=== PATIENT | male | born 1945 | race Caucasian/White ===

== ENCOUNTER 2017-01-25 20:21 | Emergency (ER) | payer MEDICARE, BC ==
[2017-01-25 20:35] VITALS: BP 155/83
--- NOTE | 2017-01-25 21:08 | EDM.PDOC ---
ED HPI GENERAL MEDICAL PROBLEM - General Chief Complaint: Cardiovascular Problem Stated Complaint: BLOOD PRESSURE PROBLEM Time Seen by Provider: 01/25/17 20:57 Source of Information: Reports: Patient History Limitations: Reports: No Limitations - History of Present Illness INITIAL COMMENTS - FREE TEXT/NARRATIVE: 71-year-old male attends the ED with a sense of unwellness. He short of breath on minimal exertion. Denies cough or sputum production. No true orthopnea. He wears a CPAP machine at bedtime and therefore he would appreciate orthopnea. He started near ` yesterday amount of one tablet. This is for overactive bladder prescribed by Dr. Mascorro. He was concerned that it may be causing a lot of side effects as he feels extremely wiped out her to take a 3 hour nap this afternoon still feels super tired. He has some chronic lower dependent edema. He has no known history of congestive heart failure. Eyes any other changes to his medications. His blood pressure was elevated at home and to the 150s and 160s diastolic systolically. He was concerned therefore this is an adverse effect of them are Adolfo as he read all the side effect profile. He did not take his tablet today. On arrival his BP was 155/90. It slowly came down to 134/ 74. Onset: Today Onset Date: 01/25/17 Duration: Hour(s):, Constant Location: Reports: Generalized Quality: Reports: Other Severity: Moderate (No pain just generally weak and tired.) Improves with: Reports: None Worsens with: Reports: Movement Context: Denies: Activity, Exercise, Lifting, Sick Contact, Trauma, Other Associated Symptoms: Reports: Malaise, Shortness of Breath, Weakness. Denies: No Other Symptoms, Confusion, Chest Pain, Cough, cough w sputum, Diaphoresis, Fever/Chills, Headaches, Loss of Appetite, Nausea/Vomiting, Rash, Seizure, Syncope Treatments HOP STRAINER: Reports: Other (see below) (None.) Bilateral Shoulder Pain Score (Numeric/FACES): 2 - Related Data Allergies Allergy/AdvReac Type Severity Reaction Status Date / Time Iodinated Contrast- Oral and Allergy Other Verified 10/18/15 11:53 IV Dye [Iodinated Contrast Media - IV Dye] Penicillins Allergy Rash Verified 10/18/15 11:53 aspirin AdvReac Stomach Verified 10/18/15 11:53 Ache codeine AdvReac Insomnia Verified 10/18/15 11:53 erythromycin lactobionate AdvReac Vomiting Verified 10/18/15 11:53 [From Erythrocin] oxycodone AdvReac Insomnia Verified 10/18/15 11:53 CT Dye Allergy Other Uncoded 07/21/15 23:20 Home Meds: Home Meds Allopurinol [Zyloprim] 100 mg PO BEDTIME 12/14/14 [History] Doxazosin [Cardura] 4 mg PO DAILY 12/14/14 [History] amLODIPine Besylate [Amlodipine Besylate] 10 mg PO DAILY 12/14/14 [History] Budesonide/Formoterol [Symbicort 80-4.5 MCG] 2 puff INH DAILY 08/14/15 [History] Lutein/Minerals/Vit A,C & E [Ocuvite] 1 each PO DAILY 08/14/15 [History] Past Medical History Cardiovascular History: Reports: High Cholesterol, Hypertension Respiratory History: Reports: Asthma, COPD, Sleep Apnea (Does wear CPAP at bedtime.) Gastrointestinal History: Reports: GERD Genitourinary History: Reports: BPH, Chronic Renal Insuffiency (EGFR is 44. Creatinine 1.6.), Prostate Disorder, Other (See Below) (Overactive bladder syndrome.) Musculoskeletal History: Reports: Arthritis, Gout, Osteoarthritis Endocrine/Metabolic History: Reports: Obesity/BMI 30+ - Past Surgical History Musculoskeletal Surgical History: Reports: Knee Replacement (Bilaterally.), Other (See Below) (Both shoulders have required surgery for rotator cuff tears.) Social & Family History - Tobacco Use Smoking Status *Q: Never Smoker Second Hand Smoke Exposure: No - Caffeine Use Caffeine Use: Reports: Coffee, Soda - Alcohol Use Days Per Week of Alcohol Use: 0 - Recreational Drug Use Recreational Drug Use: No Drug Use in Last 12 Months: No - Living Situation & Occupation Living situation: Reports: Occupation: Retired ED ROS GENERAL - Review of Systems Review Of Systems: See Below Constitutional: Reports: Malaise, Weakness, Fatigue. Denies: Fever, Chills, Decreased Appetite, Weight Loss HEENT: Reports: No Symptoms, Glasses Respiratory: Reports: Shortness of Breath (On exertion). Denies: Wheezing, Pleuritic Chest Pain, Cough, Sputum, Hemoptysis Cardiovascular: Reports: Blood Pressure Problem, Dyspnea on Exertion (SOME FLUID ACCUMULATION HIS LOWER EXTREMITIES.), Edema. Denies: Chest Pain, Claudication, Lightheadedness, Orthopnea (Chronic hypertension usually well controlled on current medications), Palpitations ( CHRONICALLY) Endocrine: Reports: Fatigue. Denies: High Glucose GI/Abdominal: Denies: Abdominal Pain : Reports: Frequency, Other (No definite big prostate with an overactive bladder. States the Metrix seems to have taken away a large portion of the constant urge to void.) Musculoskeletal: Reports: Shoulder Pain, Joint Pain (Both knees particular the right knee. Both knees been replaced both shoulders and rotator cuff surgical repair.) Skin: Reports: No Symptoms Neurological: Reports: No Symptoms Psychiatric: Reports: No Symptoms Hematologic/Lymphatic: Reports: No Symptoms ED EXAM, GENERAL - Physical Exam Exam: See Below Exam Limited By: No Limitations General Appearance: Alert, WD/WN, No Apparent Distress, Other (Initial vital settled he was tachypnea at rest at 30/m oxygen saturation 92-94% on room air.) Eye Exam: Bilateral Eye: Normal Inspection Throat/Mouth: Normal Inspection, Normal Lips, Normal Oropharynx Head: Atraumatic, Normocephalic Neck: Normal Inspection, Non-Tender, Full Range of Motion, Limited Range of Motion (Crepitus on top on lateral movement.). No: Lymphadenopathy (L), Lymphadenopathy (R) Respiratory/Chest: No Accessory Muscle Use, Chest Non-Tender, Respiratory Distress (Cachectic and rest 30/m.), Rales (Crackles both lower lobes it seemed to improve with deep breathing suggesting atelectasis.) Cardiovascular: Regular Rate, Rhythm (80/m), No Gallop, No Murmur, No Rub, Other (Unable to appreciate any jugular venous distention due to very large neck.) Peripheral Pulses: 0: Posterior Tibial (L) (Very weak pulses inhibited a little bit by the edema in his feet.), Posterior Tibial (R), Dorsalis Pedis (L), Dorsalis Pedis (R) GI/Abdominal: Normal Bowel Sounds, Soft, Non-Tender, No Organomegaly, Other ( Firm to palpation due to obesity. Abdominal girth limits ability to palpate solid organs.) Back Exam: Normal Inspection, Decreased Range of Motion. No: CVA Tenderness (L ) (Mildly decreased range of motion.), CVA Tenderness (R), Paraspinal Tenderness Extremities: Other (Is 2+ pitting edema lower extremities to about mid tib-fib. Evidence of bilateral total knee replacements.) Neurological: Alert, Oriented, CN II-XII Intact, Normal Cognition Psychiatric: Normal Affect, Normal Mood Skin Exam: Warm, Dry, Intact, Normal Color, No Rash EKG INTERPRETATION EKG Date: 01/25/17 Time: 21:25 Rhythm: NSR Rate (Beats/Min): 82 [place]: Normal P-Wave: Present (First-degree AV block.) QRS: Other (He has evidence of left ventricular hypertrophy pattern. There are near Q waves in lead 3 and aVF. Consider old inferior wall myocardial infarction.) ST-T: Normal QT: Prolonged (Mildly prolonged) Course - Vital Signs Last Recorded V/S: Last Vital Signs Temp 36.9 C 01/25/17 20:33 Pulse 95 01/25/17 20:33 Resp 30 H 01/25/17 20:33 BP 155/83 H 01/25/17 20:33 Pulse Ox 94 L 01/25/17 20:33 - Orders/Labs/Meds Orders: Active Orders 24 hr Category Date Time Status EKG Documentation Completion [RC] STAT Care 01/25/17 21:10 Active Chest 1V Frontal [CR] Stat Exams 01/25/17 21:10 Taken Labs: Laboratory Tests 01/25/17 01/25/17 01/25/17 Range/Units 21:20 21:20 21:20 WBC 7.95 (4.23-9.07) K/mm3 RBC 4.43 L (4.63-6.08) M/mm3 Hgb 13.4 L (13.7-17.5) gm/L Hct 40.5 (40.1-51.0) % MCV 91.4 (79.0-92.2) fl MCH 30.2 (25.7-32.2) pg MCHC 33.1 (32.2-35.5) g/dl RDW Std Deviation 42.6 (35.1-43.9) fL Plt Count 207 (163-337) K/mm3 MPV 8.9 L (9.4-12.3) fl Neutrophils % (Manual) 62 H (40-60) % Band Neutrophils % 0 (0-10) % Lymphocytes % (Manual) 35 (20-40) % Atypical Lymphs % 0 % Monocytes % (Manual) 3 (2-10) % Eosinophils % (Manual) 0 L (0.8-7.0) % Basophils % (Manual) 0 L (0.2-1.2) Platelet Estimate Adequate RBC Morph Comment Normal D-Dimer, Quantitative (0.19-0.59) mg/L Sodium 142 (136-145) mEq/L Potassium 3.8 (3.5-5.1) mEq/L Chloride 108 H (98-107) mEq/L Carbon Dioxide 25 (21-32) mEq/L Anion Gap 12.8 (5-15) BUN 33 H (7-18) mg/dL Creatinine 1.6 H (0.7-1.3) mg/dL Est Cr Clr Drug Dosing 43.09 mL/min Estimated GFR (MDRD) 43 (>60) mL/min BUN/Creatinine Ratio 20.6 H (14-18) Glucose 127 H (83-115) mg/dL Calcium 8.6 (8.5-10.1) mg/dL Total Bilirubin 0.5 (0.2-1.0) mg/dL AST 18 (15-37) U/L ALT 35 (16-63) U/L Alkaline Phosphatase 72 (46-116) U/L CK-MB (CK-2) 1.1 (0-3.6) ng/ml Troponin I < 0.017 (0.00-0.056) ng/mL C-Reactive Protein < 0.2 (<1.0) mg/dL B-Natriuretic Peptide < 15 (0-100) pg/mL Total Protein 6.6 (6.4-8.2) g/dl Albumin 3.3 L (3.4-5.0) g/dl Globulin 3.3 gm/dL Albumin/Globulin Ratio 1.0 (1-2) Urine Color (Yellow) Urine Appearance (Clear) Urine pH (5.0-8.0) Ur Specific [place] (1.005-1.030) Urine Protein (Negative) Urine Glucose (UA) (Negative) Urine Ketones (Negative) Urine Occult Blood (Negative) Urine Nitrite (Negative) Urine Bilirubin (Negative) Urine Urobilinogen (0.2-1.0) Ur Leukocyte Esterase (Negative) Urine RBC (0-5) /hpf Urine WBC (0-5) /hpf Ur Epithelial Cells (0-5) /hpf Urine Bacteria (FEW) /hpf Urine Mucus (FEW) /hpf 01/25/17 01/25/17 Range/Units 21:41 22:35 WBC (4.23-9.07) K/mm3 RBC (4.63-6.08) M/mm3 Hgb (13.7-17.5) gm/L Hct (40.1-51.0) % MCV (79.0-92.2) fl MCH (25.7-32.2) pg MCHC (32.2-35.5) g/dl RDW Std Deviation (35.1-43.9) fL Plt Count (163-337) K/mm3 MPV (9.4-12.3) fl Neutrophils % (Manual) (40-60) % Band Neutrophils % (0-10) % Lymphocytes % (Manual) (20-40) % Atypical Lymphs % % Monocytes % (Manual) (2-10) % Eosinophils % (Manual) (0.8-7.0) % Basophils % (Manual) (0.2-1.2) Platelet Estimate RBC Morph Comment D-Dimer, Quantitative 1.14 H (0.19-0.59) mg/L Sodium (136-145) mEq/L Potassium (3.5-5.1) mEq/L Chloride (98-107) mEq/L Carbon Dioxide (21-32) mEq/L Anion Gap (5-15) BUN (7-18) mg/dL Creatinine (0.7-1.3) mg/dL Est Cr Clr Drug Dosing mL/min Estimated GFR (MDRD) (>60) mL/min BUN/Creatinine Ratio (14-18) Glucose (83-115) mg/dL Calcium (8.5-10.1) mg/dL Total Bilirubin (0.2-1.0) mg/dL AST (15-37) U/L ALT (16-63) U/L Alkaline Phosphatase (46-116) U/L CK-MB (CK-2) (0-3.6) ng/ml Troponin I (0.00-0.056) ng/mL C-Reactive Protein (<1.0) mg/dL B-Natriuretic Peptide (0-100) pg/mL Total Protein (6.4-8.2) g/dl Albumin (3.4-5.0) g/dl Globulin gm/dL Albumin/Globulin Ratio (1-2) Urine Color Yellow (Yellow) Urine Appearance Clear (Clear) Urine pH 6.0 (5.0-8.0) Ur Specific [place] > or = 1.030 (1.005-1.030) Urine Protein 3+ H (Negative) Urine Glucose (UA) Negative (Negative) Urine Ketones Negative (Negative) Urine Occult Blood Trace-lysed H (Negative) Urine Nitrite Negative (Negative) Urine Bilirubin Negative (Negative) Urine Urobilinogen 0.2 (0.2-1.0) Ur Leukocyte Esterase Negative (Negative) Urine RBC 0-5 (0-5) /hpf Urine WBC 0-5 (0-5) /hpf Ur Epithelial Cells 0-5 (0-5) /hpf Urine Bacteria Occasional (FEW) /hpf Urine Mucus Few (FEW) /hpf - Radiology Interpretation Free Text/Narrative:: 71-year-old male presents to the ED for evaluation of elevated blood pressure fatigue and shortness of breath he believes since starting Myrbetric tablet yesterday. He was on medic previous medications for overactive bladder syndrome that were working fairly well but due to his current symptoms and testing by Dr. Pedro urologist - 2 days ago he was placed on the Myrbetriq due to overactive bladder. He feels that some of his side effects such as overwhelming fatigue shortness of breath on minimal exertion and elevated blood pressure may be due to taking Myrbetriq. Of note he has only taken 1 tablet. Examination suggests low-grade congestive heart failure with dependent edema. To Take good rest with O2 sats of 92% on room air. Plan chest x-ray one view. ECG. Routine labs to include BNP and d-dimer. So cardiac markers. - Re-Assessments/Exams Free Text/Narrative Re-Assessment/Exam: 01/25/17 22:12 blood pressures come down to 134/74. Heart rate remains sinus at 80 per minute. O2 sats are 93% on room air. ECG revealed sinus rhythm with first -degree AV block. Left ventricular hypertrophy pattern with near Q waves in leads 3 and aVF suggestive of an old inferior wall myocardial infarction. Labs are pending. Chest x-ray reveals mild to moderate cardiomegaly with relatively clear lung syed. Perhaps mild hyperinflation. 01/25/17 22:15: Labs are all within normal limits is no sign of congestive failure no electrolyte imbalance cardiac markers are normal. Therefore think adverse effects or overwhelming fatigue is secondary to the new medication Myrbetriq. Lab just called over and indicates it did not have enough water clotted too soon to do a D-dimer test. Therefore I'm going to have them come back to redraw him. The meantime I will send him home as I think he has COPD and low oxygen levels most of the time. I will call him back if there are problems with the D-dimer test once it's completed. I left it up to him whether or not he wants to continue with the Myrbetriq. I would suggest using it every other day for a week or so then using it on a daily basis as he is likely to develop tolerance to the side effect profile. However if he continues to have overwhelming fatigue from the medication it will have to be discontinued and alternatives looked at. He does have a follow-up appointment with Dr. Pedro in 2 months time 01/25/17 23:38 d-dimer came back at 1.14. This is considered minimally elevated and likely due to poor clearance by his kidneys. Departure - Departure Time of Disposition: 22:25 Disposition: Home, Self-Care 01 Condition: Fair Clinical Impression: Adverse effects of medication Qualifiers: Encounter type: initial encounter Qualified Code(s): T88.7XXA - Unspecified adverse effect of drug or medicament, initial encounter Instructions: Drug Allergy, [id number] Referrals: Sole Lu, CRUISE GUIDE [Primary Care Provider] - Forms: ED Department Discharge Additional Instructions: Evaluation in the emergency room tonight in regards to increased overwhelming fatigue today and increased shortness of breath and mildly elevated blood pressure which was felt to be secondary to new medication Myrbetriq which was started the day before for overactive bladder symptoms. Little chest x-ray reveals mild heart enlargement with no signs of significant heart failure. ECG is unchanged from prior. Lab work revealed that there was no problems with her heart or extra fluid in the lungs to cause you to be more short of breath a normal and all of your electrolytes were normal. Blood pressure was mildly elevated when you came into the hospital but settle down into the 128 134/78 range. Therefore blood pressure is well controlled at present. I do believe that overwhelming fatigue is secondary to the side effect of Myrbetriq. Perhaps taking it on an every other day basis for a week would be an alternative to a lesser body adjust the medication and then start to take it on a daily basis may cause less fatigue. Typically over time we used of the side effects of the medication. A week to 10 days. However if you find that he cannot tolerate the medication then it should be just discontinued. I can find no evidence that it' s interacting with your other medications. Therefore no other medication changes are to be made at this time. - My Orders Last 24 Hours: My Active Orders 01/25/17 21:10 EKG Documentation Completion [RC] STAT Chest 1V Frontal [CR] Stat - Assessment/Plan Last 24 Hours: My Active Orders 01/25/17 21:10 EKG Documentation Completion [RC] STAT Chest 1V Frontal [CR] Stat
--- NOTE | 2017-01-26 17:53 | CR ---
Chest: Portable view of the chest was obtained. Comparison: Previous chest x-ray of 07/22/15. Heart size appears at the upper limits of normal. Mild tortuosity of the thoracic aorta is seen. Nodularity which is believed to be due to vascular confluence is seen within the right hilum. Lungs are clear with no acute infiltrates. Previous right shoulder surgery is noted. Impression: 1. Incidental findings as noted above. Nothing acute is appreciated on portable chest x-ray. Diagnostic code #2
== END 2017-01-25 22:40 | disposition home or self-care (01) ==
LOC: JD.ED 20:21
DX: R06.02 Shortness of breath (principal); T50.995A Adverse effect of other drugs, medicaments and biological substances, initial encounter; I12.9 Hypertensive chronic kidney disease with stage 1 through stage 4 chronic kidney disease, or unspecified chronic kidney disease; N18.9 Chronic kidney disease, unspecified; E78.00 Pure hypercholesterolemia, unspecified; J45.909 Unspecified asthma, uncomplicated; J44.9 Chronic obstructive pulmonary disease, unspecified; G47.30 Sleep apnea, unspecified; K21.9 Gastro-esophageal reflux disease without esophagitis; M19.90 Unspecified osteoarthritis, unspecified site; E66.9 Obesity, unspecified; Z96.653 Presence of artificial knee joint, bilateral; Z98.890 Other specified postprocedural states; Z79.899 Other long term (current) drug therapy; Z88.0 Allergy status to penicillin; Z88.5 Allergy status to narcotic agent; Z88.6 Allergy status to analgesic agent; Z91.041 Radiographic dye allergy status
CPT/HCPCS: 36415; 71010; 71010-26; 80053; 81001; 82553; 83880; 84484; 85025; 85379; 86140; 93005; 99284; 99284-25

== ENCOUNTER 2017-04-05 21:44 | Emergency (ER) | payer MEDICARE, BC ==
[2017-04-05 21:59] VITALS: BP 155/100
[2017-04-05] MEDS ORDERED: Acetaminophen 325 MG Tab PO ONE (23:05)
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
[2017-04-05] MEDS ORDERED: Diphtheria,Pertussis(Acell),Tetanus Vaccine 0.5 ML SDV IM ONE (23:50)
--- NOTE | 2017-04-07 12:15 | CR ---
Left hand: Four views of left hand were obtained. Comparison: No prior hand study. Slightly displaced oblique fracture is seen within the mid shaft diaphysis of the fourth metacarpal. Degenerative change is scattered within the DIP and PIP joints as well as MCP joints. Severe degenerative change is noted at the CMC joint of the thumb. No additional fracture or other bony abnormality is seen. Impression: 1. Fourth metacarpal fracture. 2. Degenerative change. Diagnostic code #3
--- NOTE | 2017-04-07 12:15 | CR ---
Left wrist: Four views of the left wrist were obtained. Comparison: No previous wrist exam. Severe degenerative change is noted at the CMC joint of the thumb. Cyst is noted within the lunate bone which is incidental. Fracture is again noted within the fourth metacarpal. No additional fracture or other abnormality is seen. Impression: 1. Degenerative change as described above. 2. Fourth metacarpal fracture. Diagnostic code #3
== END 2017-04-06 00:20 | disposition home or self-care (01) ==
LOC: JD.ED 21:44
DX: S62.325A Displaced fracture of shaft of fourth metacarpal bone, left hand, initial encounter for closed fracture (principal); E78.00 Pure hypercholesterolemia, unspecified; J45.909 Unspecified asthma, uncomplicated; I10 Essential (primary) hypertension; Z23 Encounter for immunization; K21.9 Gastro-esophageal reflux disease without esophagitis; E66.9 Obesity, unspecified; M19.90 Unspecified osteoarthritis, unspecified site; Z96.659 Presence of unspecified artificial knee joint; Z88.0 Allergy status to penicillin; Z91.041 Radiographic dye allergy status; Z88.6 Allergy status to analgesic agent; Z88.1 Allergy status to other antibiotic agents; Z88.5 Allergy status to narcotic agent; Z79.899 Other long term (current) drug therapy; W17.89XA Other fall from one level to another, initial encounter; Z68.41 Body mass index [BMI] 40.0-44.9, adult
CPT/HCPCS: 29125; 73110; 73130; 90471; 90715; 99283; A9270

== ENCOUNTER 2019-08-10 19:30 | Emergency (ER) | payer MEDICARE, BC ==
[2019-08-10] MEDS ORDERED: Acetaminophen 325 MG Tab PO ONE (19:58)
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
[2019-08-10 20:58] VITALS: BP 159/93; PULSE 97
--- NOTE | 2019-08-11 06:49 | CR ---
Chest: Frontal view of the chest was obtained. Comparison: Prior chest x-ray of 01/25/17. Heart size is within normal limits. Tortuous thoracic aorta is noted. Mild pleural thickening is noted along the right lateral chest wall. Lungs are clear with no acute parenchymal change. Previous bilateral shoulder surgery is noted. Impression: 1. Pleural thickening along the right lateral chest wall. This most likely is chronic and better seen on current study due to positioning. 2. Nothing acute is otherwise seen. Diagnostic code #2 This report was dictated in [place] Standard Time
--- NOTE | 2019-08-11 07:21 | CR ---
Pelvis: AP view of the pelvis was obtained. Comparison: No pelvis exam. Joint spaces within both hips are maintained. Sacroiliac joints are not optimally seen but are felt to be intact. No acute fracture or other abnormality is seen. Impression: 1. Nothing acute is seen on AP pelvis study. Diagnostic code #1 This report was dictated in [place] Standard Time
--- NOTE | 2019-08-11 07:21 | CR ---
Left knee: Four views of the left knee were obtained. Comparison: No prior left knee exam. Knee prosthesis is seen. Components are aligned. Well-corticated bony densities are seen off the medial knee compatible with old injury. No joint effusion is seen. No acute fracture, dislocation or other bony abnormality is identified. Impression: 1. Knee prosthesis. 2. Well-corticated bony densities off the medial knee believed to be due to old injury. 3. Nothing acute is seen. Diagnostic code #2 This report was dictated in [place] Standard Time
--- NOTE | 2019-08-11 07:21 | CR ---
Right knee: Four views of the right knee were obtained. Comparison: No prior right knee exam is available. Knee prosthesis is noted. Components are aligned. Underlying bony structures are intact. Minimal vascular calcification is seen. No acute fracture or other abnormality is appreciated. Impression: 1. Knee prosthesis. 2. Nothing acute is appreciated on right knee exam. Diagnostic code #2 This report was dictated in [place] Standard Time
== END 2019-08-10 21:07 | disposition home or self-care (01) ==
LOC: JD.ED 19:30
DX: S80.01XA Contusion of right knee, initial encounter (principal); S80.02XA Contusion of left knee, initial encounter; I12.9 Hypertensive chronic kidney disease with stage 1 through stage 4 chronic kidney disease, or unspecified chronic kidney disease; N18.9 Chronic kidney disease, unspecified; E78.00 Pure hypercholesterolemia, unspecified; J44.9 Chronic obstructive pulmonary disease, unspecified; M10.9 Gout, unspecified; E66.9 Obesity, unspecified; Z90.49 Acquired absence of other specified parts of digestive tract; Z91.041 Radiographic dye allergy status; Z88.8 Allergy status to other drugs, medicaments and biological substances; Z88.5 Allergy status to narcotic agent; Z88.0 Allergy status to penicillin; Z79.899 Other long term (current) drug therapy; V89.2XXA Person injured in unspecified motor-vehicle accident, traffic, initial encounter
CPT/HCPCS: 36415; 71045; 72170; 73564; 80053; 85025; 99284; A9270; 99282

== ENCOUNTER 2019-08-20 10:35 | Emergency (ER) | payer MEDICARE, BC ==
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
[2019-08-20] MEDS: Sodium Chloride 0.9% 10 ML Syringe FLUSH PRN ×2 (11:25→13:02)
--- NOTE | 2019-08-20 12:29 | US ---
Right lower extremity deep venous ultrasound: Duplex and color Doppler evaluation of the right common femoral, proximal greater saphenous, superficial femoral, popliteal, posterior tibial and peroneal veins were obtained. Left common femoral vein was also evaluated. Normal phasic flow, augmentation and compression are seen. Impression: 1. No evidence of deep venous thrombosis within the right lower extremity or within the left common femoral vein. Diagnostic code #1 Study was dictated in [place] Standard Time
[2019-08-20] MEDS ORDERED: Levofloxacin/Dextrose 5%-Water 500 MG in Premix Bag 1 BAG IV ONE (12:32)
[2019-08-20 14:57] VITALS: BP 155/84; PULSE 79
== END 2019-08-20 14:10 | disposition home or self-care (01) ==
LOC: JD.ED 10:35
DX: L03.115 Cellulitis of right lower limb (principal); E78.00 Pure hypercholesterolemia, unspecified; J44.9 Chronic obstructive pulmonary disease, unspecified; I12.9 Hypertensive chronic kidney disease with stage 1 through stage 4 chronic kidney disease, or unspecified chronic kidney disease; N18.9 Chronic kidney disease, unspecified; M10.9 Gout, unspecified; N40.0 Benign prostatic hyperplasia without lower urinary tract symptoms; E66.9 Obesity, unspecified; Z68.41 Body mass index [BMI] 40.0-44.9, adult; Z88.5 Allergy status to narcotic agent; Z88.0 Allergy status to penicillin; Z88.6 Allergy status to analgesic agent; Z88.1 Allergy status to other antibiotic agents; Z91.041 Radiographic dye allergy status; Z79.899 Other long term (current) drug therapy; Z79.51 Long term (current) use of inhaled steroids
CPT/HCPCS: 36415; 80053; 83605; 85025; 87040; 87186; 93971; 96365; 99284; J1956; 99283

== ENCOUNTER 2019-10-25 13:00 | Inpatient (IN) | payer MEDICARE, BC, OTHER ==
--- NOTE | 2019-10-25 13:50 | EDM.PDOC ---
ED HPI GENERAL MEDICAL PROBLEM - General Chief Complaint: Respiratory Problem Stated Complaint: COUGH/SOB Time Seen by Provider: 10/25/19 13:10 Source of Information: Reports: Patient, Family () History Limitations: Reports: Physical Impairment (Patient difficult to understand, likely related to his [place]) - History of Present Illness INITIAL COMMENTS - FREE TEXT/NARRATIVE: Mr. Prince is a very pleasant 74-year-old man with a past medical history significant for obesity, both asthma and, likely, COPD, as well as obstructive sleep apnea, on nightly CPAP, hypertension and chronic renal insufficiency, who now comes to the ED with his , who tells me that he developed a fever, a nonproductive cough, and watery diarrhea on 10/15/2019. He has had a decreased appetite for about 1 week. He chronically has shortness of breath and dyspnea on exertion, but now presents because it got much worse in the last day or two. While the patient has a history of asthma, he has not been wheezing recently. Here in the ED, the patient is found to be hemodynamically stable, but with a fever of 102.6 degrees, saturating around 69 to 70% on room air, up to 87-88 sent on a nonrebreather mask. The patient's PCP is Sole Lu NP. His Distribution Manager is Dr. Maria T Ferguson. His [employer] is Dr. Connor Garcia. His Urologist is Dr. Av Goins. He received an influenza vaccine this season. Treatments GENERAL ENGINEER: Reports: Other (see below) Other Treatments GENERAL ENGINEER: none - Related Data Allergies Allergy/AdvReac Type Severity Reaction Status Date / Time Iodinated Contrast Media Allergy Other Verified 08/20/19 10:45 [Iodinated Contrast Media - IV Dye] Penicillins Allergy Rash Verified 08/20/19 10:45 aspirin AdvReac Stomach Verified 08/20/19 10:45 Ache codeine AdvReac Insomnia Verified 08/20/19 10:45 erythromycin lactobionate AdvReac Vomiting Verified 08/20/19 10:45 [From Erythrocin] oxycodone AdvReac Insomnia Verified 08/20/19 10:45 CT Dye Allergy Other Uncoded 07/14/18 14:44 Home Meds: Home Meds Allopurinol [Zyloprim] 200 mg PO BEDTIME 12/14/14 [History] Doxazosin [Cardura] 8 mg PO DAILY 12/14/14 [History] amLODIPine Besylate [Amlodipine Besylate] 10 mg PO DAILY 12/14/14 [History] Budesonide/Formoterol [Symbicort 80-4.5 MCG] 2 puff INH ASDIRECTED 08/14/15 [ History] Rosuvastatin [Crestor] 10 mg PO DAILY 04/05/17 [History] Cholecalciferol (Vitamin D3) [Vitamin D3] 10,000 unit PO DAILY 07/14/18 [History ] Albuterol Sulfate [Proair Hfa] 2 puff IH Q4HR PRN 08/10/19 [History] Fluticasone Propionate 1 spray NS DAILY 08/10/19 [History] Lisinopril [Zestril] 80 mg PO DAILY 08/10/19 [History] Past Medical History HEENT History: Reports: Hard of Hearing, Impaired Vision Cardiovascular History: Reports: High Cholesterol, Hypertension Respiratory History: Reports: Asthma, COPD, Sleep Apnea (nightly CPAP) Gastrointestinal History: Reports: Colon Polyp, GERD Genitourinary History: Reports: BPH, Chronic Renal Insuffiency Musculoskeletal History: Reports: Gout (suspected, not proven), Osteoarthritis Endocrine/Metabolic History: Reports: Obesity/BMI 30+ - Past Surgical History HEENT Surgical History: Reports: Oral Surgery (1 wisdom tooth extracted), Tonsillectomy GI Surgical History: Reports: Appendectomy, Colonoscopy (x 3 or 4) Musculoskeletal Surgical History: Reports: Knee Replacement (bilateral) Social & Family History - Family History Family Medical History: Noncontributory - Tobacco Use Smoking Status *Q: Never Smoker - Caffeine Use Caffeine Use: Reports: Coffee - Alcohol Use Alcohol Use History: Yes Alcohol Use Frequency: Socially - Recreational Drug Use Recreational Drug Use: No - Living Situation & Occupation Living situation: Reports: , with Spouse Occupation: Retired ED ROS GENERAL - Review of Systems Review Of Systems: Comprehensive ROS is negative, except as noted in HPI. ED EXAM, GENERAL - Physical Exam Exam: See Below Exam Limited By: No Limitations General Appearance: Alert, WD/WN, No Apparent Distress Eye Exam: Bilateral Eye: EOMI, Normal Inspection Ears: Normal External Exam, Hearing Loss Nose: Normal Inspection Throat/Mouth: Normal Inspection, Normal Lips, Normal Voice, No Airway Compromise Head: Atraumatic, Normocephalic Neck: Normal Inspection, Full Range of Motion Respiratory/Chest: No Respiratory Distress, Lungs Clear, Normal Breath Sounds, No Accessory Muscle Use. No: Decreased Breath Sounds, Crackles, Rhonchi, Wheezing, Stridor, Prolonged Expiration Cardiovascular: Normal Peripheral Pulses, Regular Rate, Rhythm, No Gallop, No JVD, No Murmur, No Rub Peripheral Pulses: 4+: Radial (L), Radial (R) GI/Abdominal: Normal Bowel Sounds, Soft, Non-Tender, No Organomegaly, No Distention, No Abnormal Bruit, No Mass (Male) Exam: Deferred Rectal (Males) Exam: Deferred Back Exam: Normal Inspection, Full Range of Motion, NT Extremities: Normal Range of Motion, Normal Capillary Refill, Other (Bilateral leg chronic venous stasis changes, including hyperpigmentation) Neurological: Alert, Oriented, Normal Cognition, No Motor/Sensory Deficits Psychiatric: Normal Affect Skin Exam: Warm, Dry, Intact, Normal Color, No Rash ED RESPIRATORY PROCEDURES - Endotracheal Intubation Time of Intubation: 16:44 ET Intubation Indication: Respiratory Failure Preparation: Suction, Balloon Tested, BVM Set Up, Difficult Airway Equip Airway Assessment: Large Tongue Pre-Oxygenation: Assisted with BVM, 100% FiO2 Anesthesia Meds: Etomidate, Midazolam, Succinylcholine Placement: Orotracheal, Cuffed, Uncomplicated Placement Cords Visualized: Yes, Grade 4 ETT Size In mm: 8.0 Number of Attempts: 1 Confirmed By: CO2 Indicator, Bilateral Breath Sounds Tube Secured By: By RT EKG INTERPRETATION EKG Date: 10/25/19 Time: 14:16 Rhythm: NSR (frequent PACs) Rate (Beats/Min): 99 [place]: Normal P-Wave: Present QRS: Other (Late transition) ST-T: Normal QT: Prolonged (QTc 487 ms) Comparison: Change From Previous EKG (PACs new since 01/26/2020) Course - Vital Signs Last Recorded V/S: Last Vital Signs Temp 102.7 C H 10/25/19 18:58 Pulse 80 10/25/19 18:58 Resp 34 H 10/25/19 15:07 BP 115/70 10/25/19 18:58 Pulse Ox 89 L 10/25/19 15:07 - Orders/Labs/Meds Orders: Active Orders 24 hr Category Date Time Status EKG Documentation Completion [RC] STAT Care 10/25/19 13:41 Active RT Airway Intubation [RC] ASDIRECTED Care 10/25/19 16:50 Active RT Ventilator, Adult [RC] ASDIRECTED Care 10/25/19 16:50 Active CORONAVIRUS COVID-19 PCR PHL [MREF] Stat Lab 10/25/19 14:05 Received CULTURE BLOOD [BC] Stat Lab 10/25/19 13:44 Ordered CULTURE BLOOD [BC] Stat Lab 10/25/19 14:25 Received Lactated Ringers [Ringers, Lactated] 1,000 ml Med 10/25/19 19:15 Active IV ASDIRECTED Midazolam [Versed 5 MG/ML] 50 mg Med 10/25/19 16:15 Active Sodium Chloride 0.9% [Normal Saline] 40 ml IV ASDIRECTED Vecuronium 10 mg Med 10/25/19 16:15 Active Sodium Chloride 0.9% [Normal Saline] 100 ml IV ASDIRECTED fentaNYL [Sublimaze] 2,500 mcg Med 10/25/19 16:15 Active Sodium Chloride 0.9% [Normal Saline] 200 ml IV ASDIRECTED Blood Culture x2 Reflex Set [OM.PC] Stat Oth 10/25/19 13:43 Ordered Isolation [COMM] Routine Oth 10/25/19 13:44 Ordered Medication Orders Fentanyl 2,500 mcg/ Sodium (Chloride) 250 mls @ 13 mls/hr IV ASDIRECTED ONE Stop: 10/26/19 11:28 Last Admin: 10/25/19 16:28 Dose: 13 mls/hr Midazolam HCl 50 mg/ Sodium (Chloride) 50 mls @ 3 mls/hr IV ASDIRECTED ONE Stop: 10/26/19 08:54 Last Admin: 10/25/19 16:29 Dose: 3 mls/hr Vecuronium [place] 10 mg/ (Sodium Chloride) 100 mls @ 1 mls/hr IV ASDIRECTED ONE Stop: 10/29/19 20:14 Last Admin: 10/25/19 16:27 Dose: 1 mls/hr Lactated Ringer's (Ringers, Lactated) 1,000 mls @ 100 mls/hr IV ASDIRECTED [facility] Labs: Laboratory Tests 10/25/19 10/25/19 10/25/19 Range/Units 13:25 13:25 13:25 WBC 7.08 (4.23-9.07) K/mm3 RBC 5.14 (4.63-6.08) M/mm3 Hgb 14.6 (13.7-17.5) gm/dl Hct 45.8 (40.1-51.0) % MCV 89.1 (79.0-92.2) fl MCH 28.4 (25.7-32.2) pg MCHC 31.9 L (32.2-35.5) g/dl RDW Std Deviation 43.9 (35.1-43.9) fL Plt Count 234 (163-337) K/mm3 MPV 9.5 (9.4-12.3) fl Neutrophils % (Manual) 85 H (40-60) % Band Neutrophils % 0 (0-10) % Lymphocytes % (Manual) 4 L (20-40) % Atypical Lymphs % 0 % Monocytes % (Manual) 11 H (2-10) % Eosinophils % (Manual) 0 L (0.8-7.0) % Basophils % (Manual) 0 L (0.2-1.2) Platelet Estimate Adequate RBC Morph Comment Normal PT 12.5 H (9.7-12.0) SECONDS INR 1.16 APTT 31 (22-31) SECONDS D-Dimer, Quantitative 0.98 H (0.19-0.50) mg/L Puncture Site ABG pH (7.35-7.45) ABG pCO2 (35.0-45.0) mmHg ABG pO2 (80.0-100.0) mmHg ABG HCO3 (22.0-26.0) meq/L ABG O2 Saturation (96.0-97.0) % ABG Base Excess (-2-2.0) Elvis Test O2 Delivery Device Oxygen Flow Rate FiO2 (21.00-100.00) % Sodium 145 (136-145) mEq/L Potassium 3.8 (3.5-5.1) mEq/L Chloride 106 (98-107) mEq/L Carbon Dioxide 24 (21-32) mEq/L Anion Gap 18.8 H (5-15) BUN 37 H (7-18) mg/dL Creatinine 2.6 H (0.7-1.3) mg/dL Est Cr Clr Drug Dosing 26.15 mL/min Estimated GFR (MDRD) 24 (>60) mL/min BUN/Creatinine Ratio 14.2 (14-18) Glucose 138 H (83-115) mg/dL Lactic Acid (0.4-2.0) mmol/L Calcium 8.8 (8.5-10.1) mg/dL Magnesium 2.0 (1.8-2.4) mg/dl Ferritin (26-388) ng/ml Total Bilirubin 0.7 (0.2-1.0) mg/dL AST 45 H (15-37) U/L ALT 35 (16-63) U/L Alkaline Phosphatase 48 (46-116) U/L Lactate Dehydrogenase 373 H (85-227) U/L Creatine Kinase 236 (39-308) U/L Troponin I 0.026 (0.00-0.056) ng/mL C-Reactive Protein 13.4 H* (<1.0) mg/dL NT-Pro-B Natriuret Pep (0-450) pg/mL Total Protein 7.4 (6.4-8.2) g/dl Albumin 2.6 L (3.4-5.0) g/dl Globulin 4.8 gm/dL Albumin/Globulin Ratio 0.5 L (1-2) 10/25/19 10/25/19 10/25/19 Range/Units 13:25 13:25 13:25 WBC (4.23-9.07) K/mm3 RBC (4.63-6.08) M/mm3 Hgb (13.7-17.5) gm/dl Hct (40.1-51.0) % MCV (79.0-92.2) fl MCH (25.7-32.2) pg MCHC (32.2-35.5) g/dl RDW Std Deviation (35.1-43.9) fL Plt Count (163-337) K/mm3 MPV (9.4-12.3) fl Neutrophils % (Manual) (40-60) % Band Neutrophils % (0-10) % Lymphocytes % (Manual) (20-40) % Atypical Lymphs % % Monocytes % (Manual) (2-10) % Eosinophils % (Manual) (0.8-7.0) % Basophils % (Manual) (0.2-1.2) Platelet Estimate RBC Morph Comment PT (9.7-12.0) SECONDS INR APTT (22-31) SECONDS D-Dimer, Quantitative (0.19-0.50) mg/L Puncture Site ABG pH (7.35-7.45) ABG pCO2 (35.0-45.0) mmHg ABG pO2 (80.0-100.0) mmHg ABG HCO3 (22.0-26.0) meq/L ABG O2 Saturation (96.0-97.0) % ABG Base Excess (-2-2.0) Elvis Test O2 Delivery Device Oxygen Flow Rate FiO2 (21.00-100.00) % Sodium (136-145) mEq/L Potassium (3.5-5.1) mEq/L Chloride (98-107) mEq/L Carbon Dioxide (21-32) mEq/L Anion Gap (5-15) BUN (7-18) mg/dL Creatinine (0.7-1.3) mg/dL Est Cr Clr Drug Dosing mL/min Estimated GFR (MDRD) (>60) mL/min BUN/Creatinine Ratio (14-18) Glucose (83-115) mg/dL Lactic Acid 1.7 (0.4-2.0) mmol/L Calcium (8.5-10.1) mg/dL Magnesium (1.8-2.4) mg/dl Ferritin 3536 H (26-388) ng/ml Total Bilirubin (0.2-1.0) mg/dL AST (15-37) U/L ALT (16-63) U/L Alkaline Phosphatase (46-116) U/L Lactate Dehydrogenase (85-227) U/L Creatine Kinase (39-308) U/L Troponin I (0.00-0.056) ng/mL C-Reactive Protein (<1.0) mg/dL NT-Pro-B Natriuret Pep 392 (0-450) pg/mL Total Protein (6.4-8.2) g/dl Albumin (3.4-5.0) g/dl Globulin gm/dL Albumin/Globulin Ratio (1-2) 10/24/20 Range/Units 14:00 WBC (4.23-9.07) K/mm3 RBC (4.63-6.08) M/mm3 Hgb (13.7-17.5) gm/dl Hct (40.1-51.0) % MCV (79.0-92.2) fl MCH (25.7-32.2) pg MCHC (32.2-35.5) g/dl RDW Std Deviation (35.1-43.9) fL Plt Count (163-337) K/mm3 MPV (9.4-12.3) fl Neutrophils % (Manual) (40-60) % Band Neutrophils % (0-10) % Lymphocytes % (Manual) (20-40) % Atypical Lymphs % % Monocytes % (Manual) (2-10) % Eosinophils % (Manual) (0.8-7.0) % Basophils % (Manual) (0.2-1.2) Platelet Estimate RBC Morph Comment PT (9.7-12.0) SECONDS INR APTT (22-31) SECONDS D-Dimer, Quantitative (0.19-0.50) mg/L Puncture Site Lt radial ABG pH 7.41 (7.35-7.45) ABG pCO2 32.0 L (35.0-45.0) mmHg ABG pO2 61.0 L (80.0-100.0) mmHg ABG HCO3 19.7 L (22.0-26.0) meq/L ABG O2 Saturation 89.0 L (96.0-97.0) % ABG Base Excess -3.6 L (-2-2.0) Elvis Test Positive O2 Delivery Device Nrb Oxygen Flow Rate 15.0 FiO2 100.00 (21.00-100.00) % Sodium (136-145) mEq/L Potassium (3.5-5.1) mEq/L Chloride (98-107) mEq/L Carbon Dioxide (21-32) mEq/L Anion Gap (5-15) BUN (7-18) mg/dL Creatinine (0.7-1.3) mg/dL Est Cr Clr Drug Dosing mL/min Estimated GFR (MDRD) (>60) mL/min BUN/Creatinine Ratio (14-18) Glucose (83-115) mg/dL Lactic Acid (0.4-2.0) mmol/L Calcium (8.5-10.1) mg/dL Magnesium (1.8-2.4) mg/dl Ferritin (26-388) ng/ml Total Bilirubin (0.2-1.0) mg/dL AST (15-37) U/L ALT (16-63) U/L Alkaline Phosphatase (46-116) U/L Lactate Dehydrogenase (85-227) U/L Creatine Kinase (39-308) U/L Troponin I (0.00-0.056) ng/mL C-Reactive Protein (<1.0) mg/dL NT-Pro-B Natriuret Pep (0-450) pg/mL Total Protein (6.4-8.2) g/dl Albumin (3.4-5.0) g/dl Globulin gm/dL Albumin/Globulin Ratio (1-2) Meds: Medications Generic Name Dose Route Start Last Admin Trade Name Freq PRN Reason Stop Dose Admin Fentanyl 2,500 mcg/ Sodium 250 mls @ 13 mls/hr 10/25/19 16:15 10/25/19 16:28 Chloride IV 10/26/19 11:28 13 mls/hr ASDIRECTED ONE Administration Midazolam HCl 50 mg/ Sodium 50 mls @ 3 mls/hr 10/25/19 16:15 10/25/19 16:29 Chloride IV 10/26/19 08:54 3 mls/hr ASDIRECTED ONE Administration Vecuronium [place] 10 mg/ 100 mls @ 1 mls/hr 10/25/19 16:15 10/25/19 16:27 Sodium Chloride IV 10/29/19 20:14 1 mls/hr ASDIRECTED ONE Administration Lactated Ringer's 1,000 mls @ 100 mls/hr 10/25/19 19:15 Ringers, Lactated IV ASDIRECTED LG Discontinued Medications Generic Name Dose Route Start Last Admin Trade Name Freq PRN Reason Stop Dose Admin Etomidate 40 mg 10/25/19 16:00 Amidate IVPUSH 10/25/19 16:01 .STK-MED ONE Midazolam HCl 25 mg 10/25/19 16:00 Versed 1 Mg/Ml .ROUTE 10/25/19 16:01 .STK-MED ONE Succinylcholine Chloride 200 mg 10/25/19 16:00 Quelicin .ROUTE 10/25/19 16:01 .STK-MED ONE - Re-Assessments/Exams Free Text/Narrative Re-Assessment/Exam: 10/25/19 13:48 With dyspnea, a nonproductive cough, fever, watery diarrhea, and hypoxemia upon presentation, with essentially clear lungs to auscultation on exam, there is a very good chance that the patient is suffering from COVID-19. I have therefore ordered a work-up that includes blood work, an ABG, 2 sets of blood cultures, a chest x-ray, an influenza swab, a COVID-19 swab, and an ECG. The patient stated , with his and a nurse present, that if necessary, he would want to be intubated. 10/25/19 14:18 Portable chest radiograph reviewed. There is likely mild cardiomegaly. There are bilateral hazy infiltrates consistent with viral pneumonia/developing ARDS. This appearance makes evaluation of pulmonary vascular congestion difficult. No obvious pleural effusions on this AP view. No pneumothorax. Right humeral head arthroscopic anchors incidentally noted. Formal read per the Radiologist pending. 10/25/19 14:37 The patient's CBC is remarkable for a WBC count normal at 7.08 with 0% bandemia. His ANC is 85, and his ALC is 84. The remainder of his CBC is unremarkable. His CMP is remarkable for an anion gap mildly elevated at 18.8, but with a bicarbonate normal at 24. His BUN/Cr are elevated at 37/2.6, and his blood glucose is elevated at 138. The remainder of his CMP is unremarkable. His magnesium level is normal at 2.0. His troponin is within normal limits at 0.026. His BNP is within normal limits at 392. His CPK is within normal limits at 236. His lactic acid is normal at 1.7. His CRP is elevated at 13.4. His LDH is elevated at 373. Ferritin is elevated at 3536. His D-dimer is elevated at 0.98. His PT is 12.5 with an INR of 1.16. His PTT is within normal limits. His ABG represents a chronic/fully compensated respiratory alkalosis. His influenza swab returned negative. The SARS-CoV-2 virus by rt PCR test is a send-out test. The patient's ANC/ALC is 21.25. Reviewing prior medical records, I see that the patient's BUN/Cr were 32/1.9 on 08/30/2019. Based on the above, the patient is almost certainly suffering from COVID-19. An ANC/ALC ratio of greater than 3.5 portends to a poor prognosis, and intubation is recommended. 10/25/19 15:10 Test results and my recommendation for intubation discussed with the patient ( his is not currently present). The patient is agreeable to be intubated. 10/25/19 16:57 The removed his dentures for us, and we removed his hearing aid and eyeglasses. Following sedation with midazolam and etomidate, and paralysis with succinylcholine, the patient was intubated with an 8.0 OETT to 3 cm at the gingiva. Positive CO2 colorimetric change. Good bilateral breath sounds post intubation. An orogastric tube was then placed per Stacy MILLAN. A post-procedure portable chest x-ray has been ordered. The patient will be sedated with hemodialysis line drip, fentanyl drip, and remain paralyzed with a vecuronium drip. 10/25/19 17:27 Post-intubation portable chest radiograph reviewed. The tip of the ET tube is about 2 cm above the griselda. The OG tube is in the stomach via the esophagus. There is mild cardiomegaly. There are bilateral hazy infiltrates consistent with viral pneumonia versus developing ARDS. Pulmonary vascular congestion cannot be ruled out. No pleural effusions seen on this AP view. No pneumothorax. Formal read per the Radiologist pending. 10/25/19 18:32 Post-procedure chest x-ray read by Dr. Jensen as: 1. Diffuse parenchymal densities within both sides of the chest. Differential as described previously. 2. Endotracheal tube lying at the upper level of the clavicles. 3. Tip of the nasogastric tube within stomach. Note that the appearance of the tip of the ETT is based on superior positioning of the x-ray source; the tip can clearly be seen about 2 cm above the griselda, and is therefore in proper position. 10/25/19 19:06 Dr. Fregoso has been kept abreast of this patient throughout the day, and accepted the patient for admission to the ICU. Departure - Departure Time of Disposition: 17:30 Disposition: Admitted As Inpatient 65 Condition: Serious Clinical Impression: ARDS (adult respiratory distress syndrome) - Discharge Information *PRESCRIPTION DRUG MONITORING PROGRAM REVIEWED*: Not Applicable *COPY OF PRESCRIPTION DRUG MONITORING REPORT IN PATIENT RACHNA: Not Applicable Referrals: Sole Lu NP [Primary Care Provider] - Maria T Ferguson MD [Ordering Only Provider] - Connor Garcia MD [Ordering Only Provider] - Av Goins MD [Ordering Only Provider] - Forms: ED Department Discharge Sepsis Event Note - Evaluation Sepsis Screening Result: No Definite Risk - Focused Exam Vital Signs: Vital Signs Temp Pulse Resp BP Pulse Ox 10/25/19 18:58 102.7 C H 80 115/70 10/25/19 15:07 39.0 C H 100 34 H 139/72 89 L 10/25/19 13:38 39.2 C H Date Exam was Performed: 10/25/19 Time Exam was Performed: 19:27 - My Orders Last 24 Hours: My Active Orders 10/25/19 13:41 EKG Documentation Completion [RC] STAT 10/25/19 13:43 Blood Culture x2 Reflex Set [OM.PC] Stat 10/25/19 13:44 CULTURE BLOOD [BC] Stat Isolation [COMM] Routine 10/25/19 14:05 CORONAVIRUS COVID-19 PCR PHL [MREF] Stat 10/25/19 14:25 CULTURE BLOOD [BC] Stat 10/25/19 16:15 Midazolam [Versed 5 MG/ML] 50 mg Sodium Chloride 0.9% [Normal Saline] 40 ml IV ASDIRECTED Vecuronium 10 mg Sodium Chloride 0.9% [Normal Saline] 100 ml IV ASDIRECTED fentaNYL [Sublimaze] 2,500 mcg Sodium Chloride 0.9% [Normal Saline] 200 ml IV ASDIRECTED 10/25/19 16:50 RT Airway Intubation [RC] ASDIRECTED RT Ventilator, Adult [RC] ASDIRECTED 10/25/19 19:15 Lactated Ringers [Ringers, Lactated] 1,000 ml IV ASDIRECTED - Assessment/Plan Last 24 Hours: My Active Orders 10/25/19 13:41 EKG Documentation Completion [RC] STAT 10/25/19 13:43 Blood Culture x2 Reflex Set [OM.PC] Stat 10/25/19 13:44 CULTURE BLOOD [BC] Stat Isolation [COMM] Routine 10/25/19 14:05 CORONAVIRUS COVID-19 PCR PHL [MREF] Stat 10/25/19 14:25 CULTURE BLOOD [BC] Stat 10/25/19 16:15 Midazolam [Versed 5 MG/ML] 50 mg Sodium Chloride 0.9% [Normal Saline] 40 ml IV ASDIRECTED Vecuronium 10 mg Sodium Chloride 0.9% [Normal Saline] 100 ml IV ASDIRECTED fentaNYL [Sublimaze] 2,500 mcg Sodium Chloride 0.9% [Normal Saline] 200 ml IV ASDIRECTED 10/25/19 16:50 RT Airway Intubation [RC] ASDIRECTED RT Ventilator, Adult [RC] ASDIRECTED 10/25/19 19:15 Lactated Ringers [Ringers, Lactated] 1,000 ml IV ASDIRECTED
--- NOTE | 2019-10-25 14:08 | CR ---
Chest: Portable view of the chest was obtained. Comparison: Prior chest x-ray of 08/10/19. Diffuse areas of increased density are noted throughout both lungs. Findings are an interval change from previous exam. Findings most likely represent diffuse pneumonia either bacterial or viral. Possible mild superimposed pulmonary vascular congestion. Heart is mildly enlarged. Prior right shoulder surgery is noted. Impression: 1. Diffusely abnormal chest x-ray. Differential as noted above. Diagnostic code #3 This report was dictated in MDT
[2019-10-25] MEDS ORDERED: Midazolam 1 MG/ML 5 ML SDV ONE (16:00)
[2019-10-25] MEDS ORDERED: Succinylcholine 200 MG/10 ML MDV ONE (16:00)
[2019-10-25] MEDS ORDERED: Etomidate 2 MG/ML 20 ML SDV IVPUSH ONE (16:00)
[2019-10-25] MEDS: Vecuronium 10 MG in Sodium Chloride 0.9% 100 ML IV ONE (16:27)
[2019-10-25] MEDS: fentaNYL 2,500 MCG in Sodium Chloride 0.9% 200 ML IV ONE (16:28)
[2019-10-25] MEDS: Midazolam 50 MG in Sodium Chloride 0.9% 40 ML IV ONE (16:29)
--- NOTE | 2019-10-25 17:40 | CR ---
Chest: Portable supine view of the chest was obtained. Comparison: Prior chest x-ray performed earlier on the same day (1:38 PM). Diffuse parenchymal densities are seen throughout both lungs. Heart size and mediastinum are within normal limits for supine technique. Endotracheal tube is seen with tip appearing to lie at the upper level of the clavicles. Nasogastric tube is seen with tip lying within the stomach. Bony structures are grossly intact. Prior left shoulder surgery is noted. Impression: 1. Diffuse parenchymal densities within both sides of the chest. Differential as described previously. 2. Endotracheal tube lying at the upper level of the clavicles. 3. Tip of nasogastric tube within stomach. Diagnostic code #3 This report was dictated in MDT
[2019-10-25] MEDS ORDERED: Acetaminophen 650 MG Supp RECTAL PRN (20:51)
[2019-10-25] MEDS: Lactated Ringers 1,000 ML IV SCH (21:27)
[2019-10-25] MEDS ORDERED: Levofloxacin/Dextrose 5%-Water 750 MG in Premix Bag 1 BAG IV SCH (22:00)
[2019-10-25] MEDS ORDERED: cefTRIAXone 2 GM in Sodium Chloride 0.9% 100 ML IV SCH (22:00)
--- NOTE | 2019-10-25 22:02 | PCM.HP.2 ---
H&P History of Present Illness - General Date of Service: 10/25/19 Admit Problem/Dx: Admission Diagnosis/Problem Admission Diagnosis/Problem Respiratory distress/probable covid 19 - History of Present Illness Initial Comments - Free Text/Narative: 74 year old male with hx of copd,renal insuff and new onset fever cough and resp distress with sats 60-70 %. suspected covid dx with elevated ferritin/ extensive infiltrates and headache and non spec symptoms . creatinines run in 2-2.5 range Onset of Symptoms: Reports: Gradual Duration of Symptoms: Reports: Day(s): (5) Location: Reports: Chest Improves with: Reports: None Worsens with: Reports: None Associated Symptoms: Reports: Cough, cough w sputum, Fever/Chills, Headaches, Loss of Appetite, Other (diarrhea) - Related Data Allergies/Adverse Reactions: Allergies Allergy/AdvReac Type Severity Reaction Status Date / Time Iodinated Contrast Media Allergy Other Verified 08/20/19 10:45 [Iodinated Contrast Media - IV Dye] Penicillins Allergy Rash Verified 08/20/19 10:45 aspirin AdvReac Stomach Verified 08/20/19 10:45 Ache codeine AdvReac Insomnia Verified 08/20/19 10:45 erythromycin lactobionate AdvReac Vomiting Verified 08/20/19 10:45 [From Erythrocin] oxycodone AdvReac Insomnia Verified 08/20/19 10:45 CT Dye Allergy Other Uncoded 07/14/18 14:44 Home Medications: Home Meds Allopurinol [Zyloprim] 200 mg PO BEDTIME 12/14/14 [History] Doxazosin [Cardura] 8 mg PO DAILY 12/14/14 [History] amLODIPine Besylate [Amlodipine Besylate] 10 mg PO DAILY 12/14/14 [History] Budesonide/Formoterol [Symbicort 80-4.5 MCG] 2 puff INH ASDIRECTED 08/14/15 [ History] Rosuvastatin [Crestor] 10 mg PO DAILY 04/05/17 [History] Cholecalciferol (Vitamin D3) [Vitamin D3] 10,000 unit PO DAILY 07/14/18 [History ] Albuterol Sulfate [Proair Hfa] 2 puff IH Q4HR PRN 08/10/19 [History] Fluticasone Propionate 1 spray NS DAILY 08/10/19 [History] Lisinopril [Zestril] 80 mg PO DAILY 08/10/19 [History] Past Medical History HEENT History: Reports: Hard of Hearing, Impaired Vision Cardiovascular History: Reports: High Cholesterol, Hypertension Respiratory History: Reports: Asthma, COPD, Sleep Apnea (nightly CPAP) Gastrointestinal History: Reports: Colon Polyp, GERD Genitourinary History: Reports: BPH, Chronic Renal Insuffiency Musculoskeletal History: Reports: Gout (suspected, not proven), Osteoarthritis Endocrine/Metabolic History: Reports: Obesity/BMI 30+ - Past Surgical History HEENT Surgical History: Reports: Oral Surgery (1 wisdom tooth extracted), Tonsillectomy GI Surgical History: Reports: Appendectomy, Colonoscopy (x 3 or 4) Musculoskeletal Surgical History: Reports: Knee Replacement (bilateral) Social & Family History - Family History Family Medical History: Noncontributory - Tobacco Use Smoking Status *Q: Never Smoker Second Hand Smoke Exposure: No - Caffeine Use Caffeine Use: Reports: Coffee - Recreational Drug Use Recreational Drug Use: No - Living Situation & Occupation Living situation: Reports: , with Spouse Occupation: Retired H&P Review of Systems - Review of Systems: Review Of Systems: See Below General: Reports: Fever, Chills, Malaise, Weakness, Fatigue, Decreased Appetite Pulmonary: Reports: Shortness of Breath, Cough Cardiovascular: Reports: No Symptoms Gastrointestinal: Reports: Anorexia, Diarrhea Genitourinary: Reports: Frequency Musculoskeletal: Reports: No Symptoms Skin: Reports: No Symptoms Psychiatric: Reports: No Symptoms Neurological: Reports: No Symptoms Hematologic/Lymphatic: Reports: No Symptoms Immunologic: Reports: No Symptoms Exam - Exam Exam: See Below - Vital Signs Vital Signs: Last Vital Signs Temp 38.2 C H 10/25/19 19:30 Pulse 80 10/25/19 18:58 Resp 16 10/25/19 19:30 BP 134/74 10/25/19 19:30 Pulse Ox 98 10/25/19 19:30 Weight: 124.919 kg - Exam General: Alert, Oriented, 4 HEENT: PERRLA, Hearing Intact, Mucosa Moist & [place], Nares Patent, Normal Nasal Septum, Posterior Pharynx Clear, Conjunctiva Clear, EOMI, EACs Clear, TMs Clear Neck: Supple, Trachea Midline, 2 Lungs: Clear to Auscultation, Normal Respiratory Effort Cardiovascular: Regular Rate, Regular Rhythm GI/Abdominal Exam: Normal Bowel Sounds, Soft, Non-Tender, No Organomegaly, No Distention, No Abnormal Bruit, No Mass, Pelvis Stable (Male) Exam: No Hernia, Normal Inspection, Normal Prostate, Circumcised Rectal (Males) Exam: Normal Exam, Normal Rectal Tone, Prostate Normal Back Exam: Normal Inspection, Full Range of Motion, NT Extremities: Normal Inspection, Normal Range of Motion, Non-Tender, No Pedal Edema, Normal Capillary Refill Peripheral Pulses: 2+: Carotid (L), Carotid (R) Skin: Warm, Dry, Intact Neurological: Cranial Nerves Intact, Reflexes Equal Bilateral Neuro Extensive - Mental Status: Alert, Oriented x3, Normal Mood/Affect, Normal Cognition Neuro Extensive - Motor, Sensory, Reflexes: CN II-XII Intact, Normal Gait, Normal Reflexes Psychiatric: Alert, Normal Affect, Normal Mood - Patient Data Lab Results Last 24 hrs: Laboratory Results - last 24 hr 10/25/19 10/25/19 10/25/19 Range/Units 13:25 13:25 13:25 WBC 7.08 (4.23-9.07) K/mm3 RBC 5.14 (4.63-6.08) M/mm3 Hgb 14.6 (13.7-17.5) gm/dl Hct 45.8 (40.1-51.0) % MCV 89.1 (79.0-92.2) fl MCH 28.4 (25.7-32.2) pg MCHC 31.9 L (32.2-35.5) g/dl RDW Std Deviation 43.9 (35.1-43.9) fL Plt Count 234 (163-337) K/mm3 MPV 9.5 (9.4-12.3) fl Neutrophils % (Manual) 85 H (40-60) % Band Neutrophils % 0 (0-10) % Lymphocytes % (Manual) 4 L (20-40) % Atypical Lymphs % 0 % Monocytes % (Manual) 11 H (2-10) % Eosinophils % (Manual) 0 L (0.8-7.0) % Basophils % (Manual) 0 L (0.2-1.2) Platelet Estimate Adequate RBC Morph Comment Normal PT 12.5 H (9.7-12.0) SECONDS INR 1.16 APTT 31 (22-31) SECONDS D-Dimer, Quantitative 0.98 H (0.19-0.50) mg/L Puncture Site ABG pH (7.35-7.45) ABG pCO2 (35.0-45.0) mmHg ABG pO2 (80.0-100.0) mmHg ABG HCO3 (22.0-26.0) meq/L ABG O2 Saturation (96.0-97.0) % ABG Base Excess (-2-2.0) Elvis Test O2 Delivery Device Oxygen Flow Rate FiO2 (21.00-100.00) % Tidal Volume cc PEEP cmH20 Pressure Support cmH2O Sodium 145 (136-145) mEq/L Potassium 3.8 (3.5-5.1) mEq/L Chloride 106 (98-107) mEq/L Carbon Dioxide 24 (21-32) mEq/L Anion Gap 18.8 H (5-15) BUN 37 H (7-18) mg/dL Creatinine 2.6 H (0.7-1.3) mg/dL Est Cr Clr Drug Dosing 26.15 mL/min Estimated GFR (MDRD) 24 (>60) mL/min BUN/Creatinine Ratio 14.2 (14-18) Glucose 138 H (83-115) mg/dL Lactic Acid (0.4-2.0) mmol/L Calcium 8.8 (8.5-10.1) mg/dL Magnesium 2.0 (1.8-2.4) mg/dl Ferritin (26-388) ng/ml Total Bilirubin 0.7 (0.2-1.0) mg/dL AST 45 H (15-37) U/L ALT 35 (16-63) U/L Alkaline Phosphatase 48 (46-116) U/L Lactate Dehydrogenase 373 H (85-227) U/L Creatine Kinase 236 (39-308) U/L Troponin I 0.026 (0.00-0.056) ng/mL C-Reactive Protein 13.4 H* (<1.0) mg/dL NT-Pro-B Natriuret Pep (0-450) pg/mL Total Protein 7.4 (6.4-8.2) g/dl Albumin 2.6 L (3.4-5.0) g/dl Globulin 4.8 gm/dL Albumin/Globulin Ratio 0.5 L (1-2) 10/25/19 10/25/19 10/25/19 Range/Units 13:25 13:25 13:25 WBC (4.23-9.07) K/mm3 RBC (4.63-6.08) M/mm3 Hgb (13.7-17.5) gm/dl Hct (40.1-51.0) % MCV (79.0-92.2) fl MCH (25.7-32.2) pg MCHC (32.2-35.5) g/dl RDW Std Deviation (35.1-43.9) fL Plt Count (163-337) K/mm3 MPV (9.4-12.3) fl Neutrophils % (Manual) (40-60) % Band Neutrophils % (0-10) % Lymphocytes % (Manual) (20-40) % Atypical Lymphs % % Monocytes % (Manual) (2-10) % Eosinophils % (Manual) (0.8-7.0) % Basophils % (Manual) (0.2-1.2) Platelet Estimate RBC Morph Comment PT (9.7-12.0) SECONDS INR APTT (22-31) SECONDS D-Dimer, Quantitative (0.19-0.50) mg/L Puncture Site ABG pH (7.35-7.45) ABG pCO2 (35.0-45.0) mmHg ABG pO2 (80.0-100.0) mmHg ABG HCO3 (22.0-26.0) meq/L ABG O2 Saturation (96.0-97.0) % ABG Base Excess (-2-2.0) Elvis Test O2 Delivery Device Oxygen Flow Rate FiO2 (21.00-100.00) % Tidal Volume cc PEEP cmH20 Pressure Support cmH2O Sodium (136-145) mEq/L Potassium (3.5-5.1) mEq/L Chloride (98-107) mEq/L Carbon Dioxide (21-32) mEq/L Anion Gap (5-15) BUN (7-18) mg/dL Creatinine (0.7-1.3) mg/dL Est Cr Clr Drug Dosing mL/min Estimated GFR (MDRD) (>60) mL/min BUN/Creatinine Ratio (14-18) Glucose (83-115) mg/dL Lactic Acid 1.7 (0.4-2.0) mmol/L Calcium (8.5-10.1) mg/dL Magnesium (1.8-2.4) mg/dl Ferritin 3536 H (26-388) ng/ml Total Bilirubin (0.2-1.0) mg/dL AST (15-37) U/L ALT (16-63) U/L Alkaline Phosphatase (46-116) U/L Lactate Dehydrogenase (85-227) U/L Creatine Kinase (39-308) U/L Troponin I (0.00-0.056) ng/mL C-Reactive Protein (<1.0) mg/dL NT-Pro-B Natriuret Pep 392 (0-450) pg/mL Total Protein (6.4-8.2) g/dl Albumin (3.4-5.0) g/dl Globulin gm/dL Albumin/Globulin Ratio (1-2) 10/25/19 10/25/19 Range/Units 14:00 19:53 WBC (4.23-9.07) K/mm3 RBC (4.63-6.08) M/mm3 Hgb (13.7-17.5) gm/dl Hct (40.1-51.0) % MCV (79.0-92.2) fl MCH (25.7-32.2) pg MCHC (32.2-35.5) g/dl RDW Std Deviation (35.1-43.9) fL Plt Count (163-337) K/mm3 MPV (9.4-12.3) fl Neutrophils % (Manual) (40-60) % Band Neutrophils % (0-10) % Lymphocytes % (Manual) (20-40) % Atypical Lymphs % % Monocytes % (Manual) (2-10) % Eosinophils % (Manual) (0.8-7.0) % Basophils % (Manual) (0.2-1.2) Platelet Estimate RBC Morph Comment PT (9.7-12.0) SECONDS INR APTT (22-31) SECONDS D-Dimer, Quantitative (0.19-0.50) mg/L Puncture Site Lt radial Rt radial ABG pH 7.41 7.35 (7.35-7.45) ABG pCO2 32.0 L 40.5 (35.0-45.0) mmHg ABG pO2 61.0 L 95.0 (80.0-100.0) mmHg ABG HCO3 19.7 L 21.6 L (22.0-26.0) meq/L ABG O2 Saturation 89.0 L 96.5 (96.0-97.0) % ABG Base Excess -3.6 L -3.4 L (-2-2.0) Elvis Test Positive Positive O2 Delivery Device Nrb Ventilator Oxygen Flow Rate 15.0 FiO2 100.00 100.00 (21.00-100.00) % Tidal Volume 600.0 cc PEEP 15.0 cmH20 Pressure Support 12.0 cmH2O Sodium (136-145) mEq/L Potassium (3.5-5.1) mEq/L Chloride (98-107) mEq/L Carbon Dioxide (21-32) mEq/L Anion Gap (5-15) BUN (7-18) mg/dL Creatinine (0.7-1.3) mg/dL Est Cr Clr Drug Dosing mL/min Estimated GFR (MDRD) (>60) mL/min BUN/Creatinine Ratio (14-18) Glucose (83-115) mg/dL Lactic Acid (0.4-2.0) mmol/L Calcium (8.5-10.1) mg/dL Magnesium (1.8-2.4) mg/dl Ferritin (26-388) ng/ml Total Bilirubin (0.2-1.0) mg/dL AST (15-37) U/L ALT (16-63) U/L Alkaline Phosphatase (46-116) U/L Lactate Dehydrogenase (85-227) U/L Creatine Kinase (39-308) U/L Troponin I (0.00-0.056) ng/mL C-Reactive Protein (<1.0) mg/dL NT-Pro-B Natriuret Pep (0-450) pg/mL Total Protein (6.4-8.2) g/dl Albumin (3.4-5.0) g/dl Globulin gm/dL Albumin/Globulin Ratio (1-2) Result Diagrams: 10/25/19 13:25 10/25/19 13:25 [place] Results Last 24 hrs: Microbiology 10/25/19 13:50 Influenza Type A Antigen Screen - Final Nasopharyngeal Swab NEGATIVE INFLUENZA A VIRUS AG REFERENCE RANGE: NEGATIVE Influenza Type B Antigen Screen - Final NEGATIVE INFLUENZA B VIRUS AG REFERENCE RANGE: NEGATIVE Sepsis Event Note - Evaluation Sepsis Screening Result: No Definite Risk Current Stage of Sepsis: Ruled Out Reason for Ruling Out Sepsis: pneumonia - Focused Exam Sepsis Event Note Statement: no signs sepsis/ levoquin and rocephin started Vital Signs: Vital Signs Temp Pulse Resp BP Pulse Ox 10/25/19 19:30 38.2 C H 16 134/74 98 10/25/19 18:58 102.7 C H 80 115/70 10/25/19 15:07 39.0 C H 100 34 H 139/72 89 L 10/25/19 13:38 39.2 C H Respiratory Effort Without Exertion: Dyspneic Capillary Refill, Detail: Less than/Equal to (</=) 2 Seconds Pulse Description: 2+ Normal Skin Exam (Focused Sepsis): Normal Turgor, Flushed Date Exam was Performed: 10/25/19 Time Exam was Performed: 22:16 - Bedside Monitoring ScvO2 Measures: Greater than or Equal to 70% Bedside Ultrasound Performed: No Passive Leg Raise/Fluid Bolus: Not Performed Date Bedside Monitoring was Performed: 10/25/19 Time Bedside Monitoring was Performed: 22:07 - Problem List (1) ARDS (adult respiratory distress syndrome) SNOMED Code(s): 43461768, 35494288 ICD Code: J80 - ACUTE RESPIRATORY DISTRESS SYNDROME Status: Acute Current Visit: Yes Problem List Initiated/Reviewed/Updated: Yes Orders Last 24hrs: Active Orders 24 hr Category Date Time Status Admission Status [Patient Status] [ADT] Routine ADT 10/25/19 20:06 Active Bedrest Bathroom Privileges [RC] ASDIRECTED Care 10/25/19 20:52 Inactive Bedrest [RC] ASDIRECTED Care 10/25/19 20:54 Active Cardiac Monitoring [RC] CONTINUOUS Care 10/25/19 20:52 Active EKG Documentation Completion [RC] STAT Care 10/25/19 13:41 Active Reed Catheter Insertion [Insert Urinary Catheter] [OM. Care 10/25/19 21:45 Ordered PC] Q24H Height and Weight [RC] DAILY Care 10/25/19 20:52 Active Intake and Output [RC] Q2H Care 10/25/19 20:52 Active Oxygen Therapy [RC] PRN Care 10/25/19 20:52 Active Pulse Oximetry [RC] CONTINUOUS Care 10/25/19 20:52 Active RT Airway Intubation [RC] ASDIRECTED Care 10/25/19 16:50 Active RT Ventilator, Adult [RC] ASDIRECTED Care 10/25/19 16:50 Active Urinary Catheter Assessment [RC] ASDIRECTED Care 10/25/19 20:52 Active Urinary Catheter Assessment [RC] ASDIRECTED Care 10/25/19 21:41 Active VTE/DVT Education [RC] PER UNIT ROUTINE Care 10/25/19 20:52 Active Vital Signs [RC] Q1HR Care 10/25/19 20:52 Active Consult to Respiratory Therapy [Respiratory Care Assess Cons 10/25/19 20:50 Active and Treatment] [CONS] Routine Nothing per Oral Now Diet [DIET] Diet 10/25/19 Dinner Active CBC WITH AUTO DIFF [HEME] AM Lab 10/26/19 05:11 Ordered CMP [COMPREHENSIVE METABOLIC PN,CMP] [CHEM] AM Lab 10/26/19 05:11 Ordered CORONAVIRUS COVID-19 PCR PHL [MREF] Stat Lab 10/25/19 14:05 Received CULTURE BLOOD [BC] Stat Lab 10/25/19 13:44 Ordered CULTURE BLOOD [BC] Stat Lab 10/25/19 14:25 Received MAGNESIUM [CHEM] AM Lab 10/26/19 05:11 Ordered PHOSPHORUS [CHEM] AM Lab 10/26/19 05:11 Ordered Acetaminophen [Tylenol] Med 10/25/19 20:51 Active 650 mg RECTAL Q6H PRN Enoxaparin [Lovenox] Med 10/26/19 09:00 Active 30 mg SUBCUT DAILY Lactated Ringers [Ringers, Lactated] 1,000 ml Med 10/25/19 19:15 Active IV ASDIRECTED Midazolam [Versed 5 MG/ML] 50 mg Med 10/25/19 16:15 Active Sodium Chloride 0.9% [Normal Saline] 40 ml IV ASDIRECTED Pantoprazole [ProTONIX IV] Med 10/26/19 06:00 Active 40 mg IVPUSH ACBREAKFAST Vecuronium 10 mg Med 10/25/19 16:15 Active Sodium Chloride 0.9% [Normal Saline] 100 ml IV ASDIRECTED fentaNYL [Sublimaze] 2,500 mcg Med 10/25/19 16:15 Active Sodium Chloride 0.9% [Normal Saline] 200 ml IV ASDIRECTED Blood Culture x2 Reflex Set [OM.PC] Stat Oth 10/25/19 13:43 Ordered Desired Level of Sedation (RASS) [AST] Click To Edit Oth 10/25/19 20:54 Ordered Isolation [COMM] Routine Oth 10/25/19 13:44 Ordered Isolation [COMM] Routine Oth 10/25/19 20:53 Ordered Resuscitation Status Routine Resus Stat 10/25/19 20:52 Ordered Medication Orders Acetaminophen (Tylenol) 650 mg RECTAL Q6H PRN PRN Reason: Fever Enoxaparin Sodium (Lovenox) 30 mg SUBCUT DAILY [facility] [place] Fentanyl 2,500 mcg/ Sodium (Chloride) 250 mls @ 13 mls/hr IV ASDIRECTED ONE Stop: 10/26/19 11:28 Last Infusion: 10/25/19 21:51 Dose: 15 mls/hr Admin: 10/25/19 16:28 Dose: 13 mls/hr Midazolam HCl 50 mg/ Sodium (Chloride) 50 mls @ 3 mls/hr IV ASDIRECTED ONE Stop: 10/26/19 08:54 Last Infusion: 10/25/19 21:51 Dose: 5 mls/hr Admin: 10/25/19 16:29 Dose: 3 mls/hr Vecuronium [place] 10 mg/ (Sodium Chloride) 100 mls @ 1 mls/hr IV ASDIRECTED ONE Stop: 10/29/19 20:14 Last Infusion: 10/25/19 21:54 Dose: 5 mls/hr Infusion: 10/25/19 21:51 Dose: 3 mls/hr Admin: 10/25/19 16:27 Dose: 1 mls/hr Lactated Ringer's (Ringers, Lactated) 1,000 mls @ 100 mls/hr IV ASDIRECTED [facility] [place] Last Admin: 10/25/19 21:27 Dose: 100 mls/hr Pantoprazole Sodium (Protonix Iv) 40 mg IVPUSH ACBREAKFAST [facility] Assessment/Plan Comment:: 74 year old male with prob. covid disease and resp insuff//// abg reviewed and elective intubation done sec to risk factors and risk assessment . reviewed with family by e.r. physician kindly . patient on 100 with severe hypoxia and A-a gradient c/w ards. current settings reviewed and peep in place. emperic antibiotic untill covid confirmed renal insuff / mod and dosage adjustment done . copd : intubated for severe hypoxia and tiring out. risk of form multiorgan failure considered very high . boh - Mortality Measure Prognosis:: Poor
[2019-10-26] MEDS: Midazolam 50 MG in Sodium Chloride 0.9% 40 ML IV ONE (00:40)
[2019-10-26] MEDS: cefTRIAXone 2 GM in Sodium Chloride 0.9% 100 ML IV SCH (01:46)
[2019-10-26] MEDS: Pantoprazole 40 MG Vial IVPUSH SCH (05:20)
[2019-10-26] MEDS: Midazolam 50 MG in Sodium Chloride 0.9% 40 ML IV SCH ×2 (06:10→11:46)
[2019-10-26] MEDS: Lactated Ringers 1,000 ML IV SCH ×2 (07:40→17:30)
[2019-10-26] MEDS: fentaNYL 2,500 MCG in Sodium Chloride 0.9% 200 ML IV ONE (07:42)
[2019-10-26] MEDS: Vecuronium 10 MG in Sodium Chloride 0.9% 100 ML IV ONE (07:43)
[2019-10-26] MEDS ORDERED: Enoxaparin 30 MG/0.3 ML Syringe SUBCUT SCH (09:00)
[2019-10-26] MEDS ORDERED: Sodium Chloride 0.9% 250 ML IV SCH (13:24)
[2019-10-26] MEDS ORDERED: Sodium Chloride 0.9% 500 ML ONE (13:45)
[2019-10-26] MEDS ORDERED: propofoL 100 ML IV SCH (13:45)
--- NOTE | 2019-10-26 14:31 | PCM.PN ---
- General Info Date of Service: 10/26/19 Subjective Update: Overnight Events: Vital Signs: MAP trend: 74-94 HR trend: 76-89 Tmax: 102.6 SatO2: >97% Drips: Fentanyl 30 LR 100 Vecuronium 8 Versed 10 Mechanical Ventilation: Intubation day: 10/24 Mode: SIMV Vt:600 FiO2: 100 PEEP: 12 Rate: 16 Infectious Disease: Antibiotics: Rocephin Cultures: pending - Patient Data Vitals - Most Recent: Last Vital Signs Temp 100.3 F 10/26/19 13:16 Pulse 80 10/25/19 18:58 Resp 23 H 10/26/19 13:00 BP 105/61 10/26/19 13:00 Pulse Ox 100 10/26/19 13:51 Weight - Most Recent: 125.69 kg - Exam Quality Assessment: Supplemental Oxygen, Urine Catheter, DVT Prophylaxis General: Sedated Lungs: Decreased Breath Sounds, Crackles Cardiovascular: Tachycardia. No: Murmurs, Gallops, Rubs GI/Abdominal Exam: Distended Extremities: Slow Capillary Refill Sepsis Event Note - Evaluation Sepsis Screening Result: No Definite Risk - Focused Exam Vital Signs: Vital Signs Temp Temp Resp BP BP Pulse Ox Pulse Ox 10/26/19 13:51 100 10/26/19 13:16 100.3 F 10/26/19 13:00 23 H 105/61 100 10/26/19 11:55 97 10/26/19 11:54 98.8 F 23 H 101/52 L 95 10/26/19 11:00 98.8 F 24 H 90/51 L 95 10/26/19 10:52 98 10/26/19 10:22 98/52 L 10/26/19 08:43 99 10/26/19 08:30 100.9 F H 10/26/19 08:05 102.8 F H 10/26/19 07:50 102.6 F H 16 115/67 99 10/26/19 05:46 15 98 10/26/19 05:45 18 110/63 98 10/26/19 05:44 18 98 10/26/19 05:31 16 98 10/26/19 05:30 20 112/64 98 10/26/19 05:29 17 98 10/26/19 05:25 97 10/26/19 05:16 17 99 10/26/19 05:15 17 115/65 99 10/26/19 05:14 19 99 10/26/19 05:01 16 111/61 97 10/26/19 05:00 19 96 10/26/19 04:46 17 110/69 99 10/26/19 04:45 16 99 10/26/19 04:31 18 117/64 99 10/26/19 04:30 16 10/26/19 04:16 17 116/59 L 99 10/26/19 04:15 16 10/26/19 04:01 16 110/65 100 10/26/19 04:00 102.1 F H 17 110/65 99 10/26/19 03:46 19 111/65 99 10/26/19 03:45 17 98 10/26/19 03:31 19 109/66 99 10/26/19 03:30 16 99 10/26/19 03:16 20 118/66 99 10/26/19 03:15 17 99 10/26/19 03:01 19 122/69 100 10/26/19 03:00 19 100 10/26/19 02:46 16 119/65 98 10/26/19 02:45 16 97 10/26/19 02:31 43 H 115/59 L 80 L Date Exam was Performed: 10/26/19 Time Exam was Performed: 17:32 - Problem List & Annotations (1) Sepsis SNOMED Code(s): 93744177 Code(s): A41.9 - SEPSIS, UNSPECIFIED ORGANISM Status: Acute Current Visit : Yes (2) ARDS (adult respiratory distress syndrome) SNOMED Code(s): 71409207, 18415326 Code(s): J80 - ACUTE RESPIRATORY DISTRESS SYNDROME Status: Acute Current Visit: Yes (3) Acute renal failure SNOMED Code(s): 65994780 Code(s): N17.9 - ACUTE KIDNEY FAILURE, UNSPECIFIED Status: Acute Current Visit: No Qualifiers: Acute renal failure type: unspecified Qualified Code(s): N17.9 - Acute kidney failure, unspecified (4) Obstructive sleep apnea SNOMED Code(s): 25108078 Code(s): G47.33 - OBSTRUCTIVE SLEEP APNEA (ADULT) (PEDIATRIC) Status: Acute Current Visit: No (5) Shortness of breath SNOMED Code(s): 714400662 Code(s): R06.02 - SHORTNESS OF BREATH Status: Acute Current Visit: No (6) COPD (chronic obstructive pulmonary disease) SNOMED Code(s): 42570683 Code(s): J44.9 - CHRONIC OBSTRUCTIVE PULMONARY DISEASE, UNSPECIFIED Status : Acute Current Visit: Yes (7) Chronic renal failure, stage 3 (moderate) SNOMED Code(s): 96410355, 281745520 Code(s): N18.3 - CHRONIC KIDNEY DISEASE, STAGE 3 (MODERATE) Status: Acute Current Visit: Yes (8) HTN (hypertension) SNOMED Code(s): 68886002 Code(s): I10 - ESSENTIAL (PRIMARY) HYPERTENSION Status: Acute Current Visit: No (9) Renal insufficiency SNOMED Code(s): 490601572, 837874348 Code(s): N28.9 - DISORDER OF KIDNEY AND URETER, UNSPECIFIED Status: Acute Current Visit: No - Problem List Review Problem List Initiated/Reviewed/Updated: Yes - Plan Plan:: PLAN BY SYSTEMS: Neurology: Minimize central acting medications as possible. Daily sedation vacation. Frequent neurologic exams by nursing staff. Continue sedation with Fentanyl and versed for now and taper down as tolerated. Respiratory: Continue mechanical ventilation. Endotracheal tube care by RT. Scheduled nebulizations. Regular suctioning. Aspiration precautions. Daily SBT. Daily CXR. ABGs as needed to evaluate need for MV parameter adjustments. Cardiovascular: Sepsis protocol. IVF resuscitation. CVP monitoring with PRN bolus if <8. Continue vasopressors for now and wean off as tolerated for MAP goal >65 GI and Nutrition: Continue enteral nutrition via NG tube. NG tube care. Monitor residuals and adjust tube feedings rate as tolerated. Scheduled free water flushes. PRN bowel regimen. Kidney and Electrolytes: Strict monitoring of intake, output and overall fluid balance. Maintain neutral as possible. Avoid nephrotoxic medications. Medications to be dosed according to renal function. Monitor electrolytes and replace as needed. Trend creatinine and BUN. Endocrine: Scheduled Accu-checks. Hypoglycemia protocol in place. Infectious Disease: Trend temperature. Panculture if febrile. Follow up on cultures from admission Continue antibiotic regimen with Rocephin for now. Hematology and Coagulation: No active bleeding, no coagulopathy to correct, no need to transfuse blood products at the moment. Goal hemoglobin >7g Musculoskeletal and Skin: Bed turn rotation by nursing staff. Daily evaluation for pressure ulcers. PROPHYLAXIS: DVT- SCDs GI- Pantoprazole CODE STATUS: FULL CODE DISPOSITION: Patient will remain admitted to the ICU for mechanical ventilation, pending COVID result.
--- NOTE | 2019-10-26 14:35 | PCM.PRNOTE ---
- Free Text/Narrative Note: ARTERIAL LINE PLACEMENT Date: 10/26/2019 Time: 2:20PM Indication: Hemodynamic monitoring and need for frequent monitorization of oxygenation in highly infectious patient Attending: Raeann Conway MD A time-out was completed verifying correct patient, procedure, site, positioning , and special equipment if applicable. Allens test was performed to ensure adequate perfusion. The patients <right/ left> wrist was prepped and draped in sterile fashion. 1% Lidocaine was used to anesthetize the area. A 20G Arrow arterial line was introduced into the radial artery. The catheter was threaded over the guide wire and the needle was removed with appropriate pulsatile blood return. The catheter was then sutured in place to the skin and a sterile dressing applied. Perfusion to the extremity distal to the point of catheter insertion was checked and found to be adequate. Estimated Blood Loss: 5mL The patient tolerated the procedure well and there were no complications.
[2019-10-26] MEDS ORDERED: HYDROXYCHLOROQUINE 25 MG/ML PEGTUBE SCH (17:00)
[2019-10-26] MEDS: HYDROXYCHLOROQUINE 25 MG/ML PO SCH (17:29)
[2019-10-26] MEDS: fentaNYL 2,500 MCG in Sodium Chloride 0.9% 200 ML IV SCH (20:28)
[2019-10-26] MEDS: propofoL 100 ML IV SCH (21:10)
--- NOTE | 2019-10-26 21:47 | CR ---
Chest: Portable view of the chest was obtained. Comparison: Previous chest x-ray performed earlier on the same day (5:04 PM). Chest appears improved from previous exam. Atelectasis is seen within the left base. Minimal increased lung markings remain. Endotracheal tube is seen with tip lying at the lower level of the clavicles. Right sided infusion catheter is seen with tip lying within the superior vena cava. No pneumothorax is seen. Right shoulder surgery is noted. Heart size and mediastinum are stable. Impression: 1. Improved appearance of the chest with better aeration and decreased parenchymal densities. Left basilar atelectasis is noted. Mild persisting increased lung markings. 2. Satisfactory position of endotracheal tube terminating at the lower level of the clavicles. 3. Right-sided jugular line with tip lying within the superior vena cava. 3. No pneumothorax is seen. Diagnostic code #3 Study was dictated in MDT
[2019-10-27] MEDS: cefTRIAXone 2 GM in Sodium Chloride 0.9% 100 ML IV SCH (00:46)
[2019-10-27] MEDS: Pantoprazole 40 MG Vial IVPUSH SCH (05:23)
[2019-10-27] MEDS: HYDROXYCHLOROQUINE 25 MG/ML PO SCH (05:37)
--- NOTE | 2019-10-27 06:29 | PCM.PRNOTE ---
- Free Text/Narrative Note: Central Venous Catheter Placement Date: 10/26/2019 Time: around 20:00 Indication: Hemodynamic monitoring and caustic drug use Attending: Raeann Conway MD A time-out was completed verifying correct patient, procedure, site, positioning , and special equipment if applicable. The patient was placed in a dependent position appropriate for central line placement based on the vein to be cannulated. The patients right neck was prepped and draped in sterile fashion. 1% Lidocaine was used to anesthetize the surrounding skin area. A triple lumen 7[place] catheter was introduced into the the internal jugular using the Seldinger technique and under ultrasound guidance. The catheter was threaded smoothly over the guide wire and appropriate blood return was obtained. Each lumen of the catheter was evacuated of air and flushed with sterile saline. The catheter was then sutured in place to the skin and a sterile dressing applied. Perfusion to the extremity distal to the point of catheter insertion was checked and found to be adequate. Estimated Blood Loss: 10mL The patient tolerated the procedure well and there were no complications.
[2019-10-27] MEDS: fentaNYL 2,500 MCG in Sodium Chloride 0.9% 200 ML IV SCH (09:46)
[2019-10-27] MEDS: Norepinephrine 4 MG in Dextrose 5% in Water 246 ML IV SCH ×4 (09:51→23:13)
[2019-10-27] MEDS ORDERED: Furosemide 100 MG/10 ML SDV IVPUSH ONE (13:55)
[2019-10-27] MEDS: Lactated Ringers 1,000 ML IV SCH (13:57)
--- NOTE | 2019-10-27 15:38 | PCM.PN ---
- General Info Date of Service: 10/27/19 Subjective Update: Overnight Events: - COVID19 resulted positive Vital Signs: MAP trend: 69-91 HR trend: 76-120 Tmax: 102.6 SatO2: >95% Drips: Fentanyl 30 LR 100 Levophed Versed 10 Mechanical Ventilation: Intubation day: 10/24 Mode: ACVC Vt:500 FiO2: 100 PEEP: 12 Rate: 16 Ppeak: 29 Pmean: 20 Balance: UO: 120 NG tube: 100 Balance + 935 Infectious Disease: Antibiotics: Rocephin day 2 and Plaquenil day 2 Cultures: pending COVID19 positive - Patient Data Vitals - Most Recent: Last Vital Signs Temp 98.6 F 10/27/19 13:44 Pulse 80 10/25/19 18:58 Resp 26 H 10/27/19 15:00 BP 101/64 10/27/19 15:00 Pulse Ox 93 L 10/27/19 15:09 Weight - Most Recent: 127.505 kg - Exam Quality Assessment: Supplemental Oxygen, Central Line/PICC, Urine Catheter, DVT Prophylaxis. No: Skin Breakdown General: Sedated HEENT: Pupils Equal Lungs: Decreased Breath Sounds Cardiovascular: Regular Rate, Regular Rhythm. No: Murmurs, Gallops, Rubs GI/Abdominal Exam: Distended, Abnormal Bowel Sounds Extremities: No Pedal Edema, Slow Capillary Refill Skin: Dry, Cool Sepsis Event Note - Evaluation Sepsis Screening Result: No Definite Risk - Focused Exam Vital Signs: Vital Signs Temp Resp BP BP BP Pulse Ox Pulse Ox 10/27/19 15:09 93 L 10/27/19 15:00 26 H 101/64 126/53 L 95 10/27/19 13:44 98.6 F 22 H 120/41 L 97 10/27/19 13:23 96 10/27/19 13:00 22 H 116/54 L 134/49 L 96 10/27/19 11:51 99.2 F 22 H 142/52 H 95 10/27/19 11:29 97 10/27/19 11:00 98.4 F 24 H 113/41 L 94 L 10/27/19 10:00 23 H 127/36 L 95 97 10/27/19 09:00 21 H 113/47 L 110/36 L 96 10/27/19 08:05 94 L 10/27/19 08:00 101.9 F H 23 H 106/57 L 111/36 L 97 10/27/19 07:00 23 H 114/36 L 98 10/27/19 06:16 20 99 10/27/19 06:15 20 104/49 L 100 10/27/19 06:14 21 H 99 10/27/19 06:01 22 H 99 10/27/19 06:00 23 H 98/46 L 100 10/27/19 05:59 21 H 100 10/27/19 05:46 21 H 100 10/27/19 05:45 22 H 111/48 L 100 10/27/19 05:44 22 H 100 10/27/19 05:31 21 H 100 10/27/19 05:30 21 H 101/57 L 99 10/27/19 05:29 22 H 100 10/27/19 05:16 22 H 99 10/27/19 05:15 20 101/57 L 99 10/27/19 05:14 21 H 99 10/27/19 05:01 21 H 99 10/27/19 05:00 19 94/47 L 99 10/27/19 04:59 21 H 99 10/27/19 04:46 22 H 98 10/27/19 04:45 21 H 102/46 L 98 10/27/19 04:44 22 H 98 10/27/19 04:31 21 H 99 10/27/19 04:30 22 H 105/44 L 99 10/27/19 04:29 24 H 99 10/27/19 04:16 20 99 10/27/19 04:15 21 H 99/56 L 99 10/27/19 04:14 21 H 99 10/27/19 04:01 19 99 10/27/19 04:00 99.1 F 16 107/52 L 107/52 L 101/33 L 99 10/27/19 03:59 34 H 99 10/27/19 03:46 22 H 98 10/27/19 03:45 23 H 108/43 L 98 10/27/19 03:44 23 H 99 Date Exam was Performed: 10/27/19 Time Exam was Performed: 17:31 - Problem List & Annotations (1) Sepsis SNOMED Code(s): 45371475 Code(s): A41.9 - SEPSIS, UNSPECIFIED ORGANISM Status: Acute Current Visit : Yes (2) ARDS (adult respiratory distress syndrome) SNOMED Code(s): 73703037, 79629927 Code(s): J80 - ACUTE RESPIRATORY DISTRESS SYNDROME Status: Acute Current Visit: Yes (3) Acute renal failure SNOMED Code(s): 18992377 Code(s): N17.9 - ACUTE KIDNEY FAILURE, UNSPECIFIED Status: Acute Current Visit: No Qualifiers: Acute renal failure type: unspecified Qualified Code(s): N17.9 - Acute kidney failure, unspecified (4) Obstructive sleep apnea SNOMED Code(s): 09359264 Code(s): G47.33 - OBSTRUCTIVE SLEEP APNEA (ADULT) (PEDIATRIC) Status: Acute Current Visit: No (5) Shortness of breath SNOMED Code(s): 322724906 Code(s): R06.02 - SHORTNESS OF BREATH Status: Acute Current Visit: No (6) COPD (chronic obstructive pulmonary disease) SNOMED Code(s): 16146743 Code(s): J44.9 - CHRONIC OBSTRUCTIVE PULMONARY DISEASE, UNSPECIFIED Status : Acute Current Visit: Yes (7) Chronic renal failure, stage 3 (moderate) SNOMED Code(s): 36487454, 616581315 Code(s): N18.3 - CHRONIC KIDNEY DISEASE, STAGE 3 (MODERATE) Status: Acute Current Visit: Yes (8) HTN (hypertension) SNOMED Code(s): 30528894 Code(s): I10 - ESSENTIAL (PRIMARY) HYPERTENSION Status: Acute Current Visit: No (9) Renal insufficiency SNOMED Code(s): 584174325, 591273971 Code(s): N28.9 - DISORDER OF KIDNEY AND URETER, UNSPECIFIED Status: Acute Current Visit: No (10) COVID-19 SNOMED Code(s): 078244355 Code(s): U07.1 - COVID-19 Status: Acute Current Visit: Yes (11) Acute respiratory distress syndrome (ARDS) due to 2019-nCoV SNOMED Code(s): 17750808 Code(s): U07.1 - COVID-19; J80 - ACUTE RESPIRATORY DISTRESS SYNDROME Status : Acute Current Visit: Yes (12) Septic shock SNOMED Code(s): 76115947 Code(s): A41.9 - SEPSIS, UNSPECIFIED ORGANISM; R65.21 - SEVERE SEPSIS WITH SEPTIC SHOCK Status: Acute Current Visit: Yes - Problem List Review Problem List Initiated/Reviewed/Updated: Yes - Plan Plan:: Day of Admission - ED for fever, nonproductive cough, and watery diarrhea on 10/15/2019 + decreased appetite for about 1 week. - He chronically has shortness of breath and dyspnea on exertion, but now presents because it got much worse in the last day or two - In the ED, the patient is found to be hemodynamically stable, but with a fever of 102.6 degrees, saturating around 69 to 70% on room air, up to 87-88 sent on a nonrebreather mask. - Respiratory failure in ICU and intubated - Started on Rocephin DAY 1 - COVID19 reported positive - Started on Plaquenil PLAN BY SYSTEMS: Neurology: Minimize central acting medications as possible. Daily sedation vacation. Frequent neurologic exams by nursing staff. Continue sedation with Fentanyl and versed for now and taper down as tolerated. Respiratory: Continue mechanical ventilation with ARDS COVID protocol Continue Plaquenil Endotracheal tube care by RT. As needed nebulizations. Regular suctioning. Aspiration precautions. Daily SBT. Daily CXR as needed ABGs as needed to evaluate need for MV parameter adjustments. Cardiovascular: Sepsis protocol. Continue vasopressors for now and wean off as tolerated for MAP goal >65 GI and Nutrition: Continue enteral nutrition via NG tube with Osmolyte 1.5 NG tube care. Monitor residuals and adjust tube feedings rate as tolerated. Scheduled free water flushes. PRN bowel regimen. Kidney and Electrolytes: Strict monitoring of intake, output and overall fluid balance. Maintain neutral as possible. Avoid nephrotoxic medications. Medications to be dosed according to renal function. Monitor electrolytes and replace as needed. Trend creatinine and BUN. Lasix IV dose x 1 Discontinue IVF Endocrine: Scheduled Accu-checks. Hypoglycemia protocol in place. Infectious Disease: Trend temperature. Panculture if febrile. Follow up on cultures from admission Continue Rocephin and Plaquenil. Procalcitonin every 48 hours. Follow up on cultures Maximum isolation precautions Hematology and Coagulation: No active bleeding, no coagulopathy to correct, no need to transfuse blood products at the moment. Goal hemoglobin >7g Musculoskeletal and Skin: Bed turn rotation by nursing staff. Daily evaluation for pressure ulcers. PROPHYLAXIS: DVT- SCDs GI- Pantoprazole CODE STATUS: FULL CODE DISPOSITION: Patient will remain admitted to the ICU for mechanical ventilation
[2019-10-27] MEDS: propofoL 100 ML IV SCH (16:27)
[2019-10-28] MEDS: fentaNYL 2,500 MCG in Sodium Chloride 0.9% 200 ML IV SCH ×2 (01:31→14:31)
[2019-10-28] MEDS: cefTRIAXone 2 GM in Sodium Chloride 0.9% 100 ML IV SCH (01:42)
[2019-10-28] MEDS: propofoL 100 ML IV SCH ×4 (01:46→20:47)
[2019-10-28] MEDS: HYDROXYCHLOROQUINE 25 MG/ML PO SCH (05:12)
[2019-10-28] MEDS: Pantoprazole 40 MG Vial IVPUSH SCH (06:20)
[2019-10-28] MEDS: Lactated Ringers 1,000 ML IV SCH (08:48)
[2019-10-28] MEDS ORDERED: Norepinephrine 4 MG/4 ML SDV ONE (11:00)
[2019-10-28] MEDS ORDERED: Norepinephrine 16 MG in Dextrose 5% in Water 234 ML IV SCH ×4 (11:15→13:02)
[2019-10-28] MEDS: Furosemide 40 MG/4 ML VIAL IVPUSH SCH ×2 (11:42→22:06)
[2019-10-28] MEDS: Calcium Acetate 667 MG Cap NGTUBE SCH ×2 (11:47→18:44)
[2019-10-28] MEDS: methylPREDNISolone Sodium Succinate 125 MG/2 ML SDV IVPUSH SCH ×2 (14:01→22:11)
--- NOTE | 2019-10-28 15:39 | PCM.PN ---
- General Info Date of Service: 10/28/19 Subjective Update: Overnight Events: Vital Signs: MAP trend: 60s HR trend: 60s Tmax: 99.1 SatO2: >95% Drips: Fentanyl 18 LR 50 Levophed 12 Versed 15 Propofol 20 Mechanical Ventilation: Intubation day: 10/24 Mode: ACVC Vt:500 FiO2: 85 PEEP: 15 Rate: 22 Ppeak: 29 Pmean: 27 Balance: UO: 537 NG tube: 100 Balance + 1,375 Balance since admission: +7, 346 Infectious Disease: Antibiotics: Rocephin day 3 and Plaquenil dose 3 Cultures: COVID19 positive Diet: Osmolite 1.5 at 20ml/hr goal 50 with free water flushes 50mL q6h - Patient Data Vitals - Most Recent: Last Vital Signs Temp 96.1 F L 10/28/19 14:00 Pulse 80 10/25/19 18:58 Resp 28 H 10/28/19 14:00 BP 126/58 L 10/28/19 14:00 Pulse Ox 98 10/28/19 15:08 Weight - Most Recent: 129.455 kg - Exam Physical Findings Comments:: Quality Assessment: Supplemental Oxygen, Central Line/PICC, Urine Catheter, DVT Prophylaxis. No: Skin Breakdown General: Sedated HEENT: Pupils Equal Lungs: Decreased Breath Sounds Cardiovascular: Regular Rate, Regular Rhythm. No: Murmurs, Gallops, Rubs GI/Abdominal Exam: Distended, Abnormal Bowel Sounds Extremities: No Pedal Edema, Slow Capillary Refill Skin: Dry, Cool Sepsis Event Note - Evaluation Sepsis Screening Result: No Definite Risk - Focused Exam Vital Signs: Vital Signs Temp Resp BP BP BP Pulse Ox Pulse Ox 10/28/19 15:08 98 10/28/19 14:50 98 10/28/19 14:40 98 10/28/19 14:33 98 10/28/19 14:27 99 10/28/19 14:25 100 10/28/19 14:06 98 10/28/19 14:00 96.1 F L 28 H 126/58 L 94 L 10/28/19 13:53 98 10/28/19 13:36 86 L 10/28/19 13:00 28 H 140/62 88 L 10/28/19 12:14 92 L 10/28/19 12:00 98.1 F 24 H 88/56 L 98/45 L 88 L 10/28/19 11:00 96.5 F L 24 H 129/58 L 91 L 10/28/19 10:00 24 H 110/60 92 L 10/28/19 09:43 92 L 10/28/19 09:00 24 H 105/59 L 117/61 91 L 10/28/19 08:00 97.5 F 24 H 102/54 L 114/44 L 91 L 10/28/19 07:55 92 L 10/28/19 05:46 22 H 97/58 L 95 10/28/19 05:45 22 H 95 10/28/19 05:31 22 H 100/54 L 95 10/28/19 05:30 22 H 95 10/28/19 05:16 22 H 101/54 L 95 10/28/19 05:15 22 H 95 10/28/19 05:01 22 H 105/58 L 95 10/28/19 05:00 20 94 L 10/28/19 04:46 22 H 93/60 91 L 10/28/19 04:45 20 93 L 10/28/19 04:31 22 H 102/62 94 L 10/28/19 04:30 22 H 94 L 10/28/19 04:16 22 H 103/60 94 L 10/28/19 04:15 22 H 93 L 10/28/19 04:12 94 L 10/28/19 04:01 22 H 102/60 94 L 10/28/19 04:00 97.2 F 22 H 102/60 100/42 L 93 L 10/28/19 03:46 22 H 103/59 L 94 L 10/28/19 03:45 22 H 93 L Date Exam was Performed: 10/28/19 Time Exam was Performed: 22:37 - Problem List & Annotations (1) Sepsis SNOMED Code(s): 17584493 Code(s): A41.9 - SEPSIS, UNSPECIFIED ORGANISM Status: Acute Current Visit : Yes (2) ARDS (adult respiratory distress syndrome) SNOMED Code(s): 72186240, 57603753 Code(s): J80 - ACUTE RESPIRATORY DISTRESS SYNDROME Status: Acute Current Visit: Yes (3) Acute renal failure SNOMED Code(s): 37773289 Code(s): N17.9 - ACUTE KIDNEY FAILURE, UNSPECIFIED Status: Acute Current Visit: No Qualifiers: Acute renal failure type: unspecified Qualified Code(s): N17.9 - Acute kidney failure, unspecified (4) Obstructive sleep apnea SNOMED Code(s): 66860992 Code(s): G47.33 - OBSTRUCTIVE SLEEP APNEA (ADULT) (PEDIATRIC) Status: Acute Current Visit: No (5) Shortness of breath SNOMED Code(s): 592267045 Code(s): R06.02 - SHORTNESS OF BREATH Status: Acute Current Visit: No (6) COPD (chronic obstructive pulmonary disease) SNOMED Code(s): 41861342 Code(s): J44.9 - CHRONIC OBSTRUCTIVE PULMONARY DISEASE, UNSPECIFIED Status : Acute Current Visit: Yes (7) Chronic renal failure, stage 3 (moderate) SNOMED Code(s): 82058467, 546923188 Code(s): N18.3 - CHRONIC KIDNEY DISEASE, STAGE 3 (MODERATE) Status: Acute Current Visit: Yes (8) HTN (hypertension) SNOMED Code(s): 69763766 Code(s): I10 - ESSENTIAL (PRIMARY) HYPERTENSION Status: Acute Current Visit: No (9) Renal insufficiency SNOMED Code(s): 954800872, 889207824 Code(s): N28.9 - DISORDER OF KIDNEY AND URETER, UNSPECIFIED Status: Acute Current Visit: No (10) COVID-19 SNOMED Code(s): 109347276 Code(s): U07.1 - COVID-19 Status: Acute Current Visit: Yes (11) Acute respiratory distress syndrome (ARDS) due to 2019-nCoV SNOMED Code(s): 28300988 Code(s): U07.1 - COVID-19; J80 - ACUTE RESPIRATORY DISTRESS SYNDROME Status : Acute Current Visit: Yes (12) Septic shock SNOMED Code(s): 64924361 Code(s): A41.9 - SEPSIS, UNSPECIFIED ORGANISM; R65.21 - SEVERE SEPSIS WITH SEPTIC SHOCK Status: Acute Current Visit: Yes - Problem List Review Problem List Initiated/Reviewed/Updated: Yes - Plan Plan:: Day of Admission - ED for fever, nonproductive cough, and watery diarrhea on 10/15/2019 + decreased appetite for about 1 week. - He chronically has shortness of breath and dyspnea on exertion, but now presents because it got much worse in the last day or two - In the ED, the patient is found to be hemodynamically stable, but with a fever of 102.6 degrees, saturating around 69 to 70% on room air, up to 87-88 sent on a nonrebreather mask. - Respiratory failure in ICU and intubated - Started on Rocephin DAY 1 - COVID19 reported positive - Started on Plaquenil DAY 2 - Worsening kidney function - Phosphate continues to increase, started on phosphate binders, calcium acetate - Dietary recommending adjusting diet due to protein load - Urinary output improved mildly with Lasix IV PLAN BY SYSTEMS: Neurology: Minimize central acting medications as possible. Daily sedation vacation. Frequent neurologic exams by nursing staff. Continue sedation with Fentanyl and versed for now and taper down as tolerated. Respiratory: Continue mechanical ventilation with ARDS COVID protocol Continue Plaquenil Endotracheal tube care by RT. As needed nebulizations. Regular suctioning. Aspiration precautions. Daily SBT. Daily CXR as needed ABGs as needed to evaluate need for MV parameter adjustments. Cardiovascular: Sepsis protocol. Continue Norepinephrine for now and wean off as tolerated for MAP goal >65 GI and Nutrition: Continue enteral nutrition via NG tube with Osmolyte 1.5, rate decreased NG tube care. Monitor residuals and adjust tube feedings rate as tolerated. Scheduled free water flushes. PRN bowel regimen. Kidney and Electrolytes: Strict monitoring of intake, output and overall fluid balance. Maintain neutral as possible. Avoid nephrotoxic medications. Medications to be dosed according to renal function. Monitor electrolytes and replace as needed. Trend creatinine and BUN. Continue Lasix IV Endocrine: Scheduled Accu-checks. Hypoglycemia protocol in place. Infectious Disease: Trend temperature. Panculture if febrile. Follow up on cultures from admission Continue Rocephin and Plaquenil. Procalcitonin every 48 hours. Follow up on cultures Maximum isolation precautions Hematology and Coagulation: No active bleeding, no coagulopathy to correct, no need to transfuse blood products at the moment. Goal hemoglobin >7g Musculoskeletal and Skin: Bed turn rotation by nursing staff. Daily evaluation for pressure ulcers. PROPHYLAXIS: DVT- SCDs GI- Pantoprazole CODE STATUS: FULL CODE DISPOSITION: Patient will remain admitted to the ICU for mechanical ventilation
[2019-10-28] MEDS: Atropine 0.1 MG/ML 10 ML Syringe IVPUSH PRN ×4 (18:47→22:13)
[2019-10-29] MEDS: cefTRIAXone 2 GM in Sodium Chloride 0.9% 100 ML IV SCH (01:15)
[2019-10-29] MEDS ORDERED: fentaNYL 2500 MCG/50 ML SDV ONE (02:15)
[2019-10-29] MEDS ORDERED: Sodium Chloride 0.9% 250 ML ONE (02:15)
[2019-10-29] MEDS: propofoL 100 ML IV SCH ×5 (02:15→23:06)
[2019-10-29] MEDS: fentaNYL 2,500 MCG in Sodium Chloride 0.9% 200 ML IV SCH ×3 (02:20→20:42)
[2019-10-29] MEDS: Lactated Ringers 1,000 ML IV SCH (04:54)
[2019-10-29] MEDS: HYDROXYCHLOROQUINE 25 MG/ML PO SCH (06:00)
[2019-10-29] MEDS: Pantoprazole 40 MG Vial IVPUSH SCH (06:02)
[2019-10-29] MEDS: methylPREDNISolone Sodium Succinate 125 MG/2 ML SDV IVPUSH SCH ×4 (06:05→21:59)
[2019-10-29] MEDS: Calcium Acetate 667 MG Cap NGTUBE SCH ×3 (06:24→17:24)
[2019-10-29] MEDS: Furosemide 40 MG/4 ML VIAL IVPUSH SCH ×2 (08:00→20:46)
[2019-10-29] MEDS: Norepinephrine 16 MG in Dextrose 5% in Water 234 ML IV SCH ×2 (08:45)
[2019-10-29] MEDS ORDERED: Thiamine 1,000 MG, Magnesium Sulfate 4 GM, Folic Acid 1 MG in Dextrose 5%-0.9% NaCl 1,0... IV SCH (10:00)
--- NOTE | 2019-10-29 12:44 | PCM.PN ---
- General Info Date of Service: 10/29/19 Subjective Update: Overnight Events: Vital Signs: BP trend: 82-153/39-70 HR trend: 51-67 Tmax: 96.5 SatO2: >88% Drips: Fentanyl 18 LR 50 Levophed 12 Versed 15 Propofol 20 Mechanical Ventilation: Intubation day: 10/24 Mode: ACVC Vt:350 FiO2: 40 PEEP: 14 Rate: 34 Ppeak: 26 Pmean: 21 Balance: UO: 1110 Balance + 3,274 Balance since admission: +7,346 Infectious Disease: Antibiotics: Rocephin day 4 and Plaquenil dose 4 Cultures: COVID19 positive BCx negative x 2 days Diet: Osmolite 1.5 at 20ml/hr goal 50 with free water flushes 50mL q6h Labs: WBC up from 9.33-> 11.42 D dimer 0.98 on admission to >35 CO2 22 to 18 Creatinine continues to worsen Phosphate 6.3 to 7.1 CRP 13.4 to 30.1 TG 466 - Patient Data Vitals - Most Recent: Last Vital Signs Temp 96.4 F L 10/29/19 11:52 Pulse 80 10/25/19 18:58 Resp 34 H 10/29/19 11:52 BP 158/60 H 10/29/19 11:52 Pulse Ox 96 10/29/19 12:13 Weight - Most Recent: 132.903 kg - Exam Quality Assessment: Supplemental Oxygen, Central Line/PICC, Urine Catheter, DVT Prophylaxis. No: Skin Breakdown General: Sedated HEENT: Pupils Equal, Pupils Reactive, Mucous Membr. Moist/[place] Neck: Supple. No: Lymphadenopathy Lungs: Decreased Breath Sounds Cardiovascular: Bradycardia. No: Murmurs, Gallops, Rubs GI/Abdominal Exam: Distended Extremities: Pedal Edema, Slow Capillary Refill Skin: Dry, Cool Sepsis Event Note - Evaluation Sepsis Screening Result: No Definite Risk - Focused Exam Vital Signs: Vital Signs Temp Resp BP BP BP Pulse Ox Pulse Ox 10/29/19 12:13 96 10/29/19 11:52 96.4 F L 34 H 158/60 H 95 10/29/19 11:15 34 H 95 10/29/19 11:00 34 H 95 10/29/19 10:45 34 H 95 10/29/19 10:30 34 H 96 10/29/19 10:15 34 H 95 10/29/19 10:04 95 10/29/19 10:00 30 H 95 10/29/19 09:45 34 H 95 10/29/19 09:30 34 H 95 10/29/19 09:15 34 H 94 L 10/29/19 09:00 34 H 95 10/29/19 08:46 34 H 168/77 H 95 10/29/19 08:45 34 H 96 10/29/19 08:31 34 H 168/79 H 95 10/29/19 08:30 34 H 95 10/29/19 08:16 34 H 164/76 H 95 10/29/19 08:15 34 H 94 L 10/29/19 08:01 34 H 168/78 H 95 96 10/29/19 08:00 95.7 F L 34 H 174/64 H 96 10/29/19 07:46 34 H 160/77 H 95 10/29/19 07:45 34 H 96 10/29/19 07:31 34 H 168/74 H 95 10/29/19 07:30 34 H 96 10/29/19 07:16 34 H 164/76 H 95 10/29/19 07:15 34 H 96 10/29/19 07:01 34 H 162/73 H 95 10/29/19 07:00 34 H 95 10/29/19 06:46 30 H 156/75 H 95 10/29/19 06:45 34 H 96 96 10/29/19 06:31 19 143/65 H 95 10/29/19 06:30 21 H 95 10/29/19 06:16 23 H 135/66 95 10/29/19 06:15 25 H 95 10/29/19 06:01 21 H 147/73 H 95 10/29/19 06:00 17 95 10/29/19 05:46 21 H 147/68 H 95 10/29/19 05:45 18 95 10/29/19 05:31 23 H 151/69 H 95 10/29/19 05:30 20 95 10/29/19 05:16 21 H 145/68 H 95 10/29/19 05:15 23 H 95 10/29/19 05:01 19 139/67 95 10/29/19 05:00 18 95 10/29/19 04:57 95 10/29/19 04:46 23 H 139/67 96 10/29/19 04:45 21 H 95 10/29/19 04:31 23 H 137/66 96 10/29/19 04:30 18 96 10/29/19 04:16 21 H 139/67 96 10/29/19 04:15 22 H 96 10/29/19 04:01 21 H 139/67 96 10/29/19 04:00 96.4 F L 19 139/67 96 10/29/19 03:46 20 139/65 97 10/29/19 03:45 21 H 95 10/29/19 03:31 20 140/67 96 10/29/19 03:30 19 96 10/29/19 03:16 17 137/68 97 10/29/19 03:15 22 H 95 10/29/19 03:01 19 136/67 96 10/29/19 03:00 21 H 95 10/29/19 02:46 18 139/67 96 10/29/19 02:45 17 95 10/29/19 02:31 17 140/67 97 10/29/19 02:30 18 96 10/29/19 02:22 96 10/29/19 02:17 17 96 10/29/19 02:15 21 H 135/66 96 10/29/19 02:14 20 96 10/29/19 02:01 22 H 96 10/29/19 02:00 23 H 137/65 97 10/29/19 01:59 19 96 10/29/19 01:58 96 10/29/19 01:53 98 10/29/19 01:46 20 97 10/29/19 01:45 18 131/64 98 10/29/19 01:44 21 H 97 10/29/19 01:30 97 10/29/19 01:16 23 H 133/64 95 10/29/19 01:15 34 H 96 10/29/19 01:01 34 H 140/67 95 10/29/19 01:00 34 H 95 10/29/19 00:46 34 H 143/63 H 95 10/29/19 00:45 34 H 95 10/29/19 00:31 34 H 143/66 H 95 10/29/19 00:30 34 H 95 Date Exam was Performed: 10/29/19 Time Exam was Performed: 13:23 - Problem List & Annotations (1) Sepsis SNOMED Code(s): 52438930 Code(s): A41.9 - SEPSIS, UNSPECIFIED ORGANISM Status: Acute Current Visit : Yes (2) ARDS (adult respiratory distress syndrome) SNOMED Code(s): 49368278, 71868144 Code(s): J80 - ACUTE RESPIRATORY DISTRESS SYNDROME Status: Acute Current Visit: Yes (3) Acute renal failure SNOMED Code(s): 27324695 Code(s): N17.9 - ACUTE KIDNEY FAILURE, UNSPECIFIED Status: Acute Current Visit: No Qualifiers: Acute renal failure type: unspecified Qualified Code(s): N17.9 - Acute kidney failure, unspecified (4) Obstructive sleep apnea SNOMED Code(s): 91659115 Code(s): G47.33 - OBSTRUCTIVE SLEEP APNEA (ADULT) (PEDIATRIC) Status: Acute Current Visit: No (5) Shortness of breath SNOMED Code(s): 273767847 Code(s): R06.02 - SHORTNESS OF BREATH Status: Acute Current Visit: No (6) COPD (chronic obstructive pulmonary disease) SNOMED Code(s): 28482476 Code(s): J44.9 - CHRONIC OBSTRUCTIVE PULMONARY DISEASE, UNSPECIFIED Status : Acute Current Visit: Yes (7) Chronic renal failure, stage 3 (moderate) SNOMED Code(s): 54821338, 159104594 Code(s): N18.3 - CHRONIC KIDNEY DISEASE, STAGE 3 (MODERATE) Status: Acute Current Visit: Yes (8) HTN (hypertension) SNOMED Code(s): 68187030 Code(s): I10 - ESSENTIAL (PRIMARY) HYPERTENSION Status: Acute Current Visit: No (9) Renal insufficiency SNOMED Code(s): 996156169, 723944097 Code(s): N28.9 - DISORDER OF KIDNEY AND URETER, UNSPECIFIED Status: Acute Current Visit: No (10) COVID-19 SNOMED Code(s): 000130273 Code(s): U07.1 - COVID-19 Status: Acute Current Visit: Yes (11) Acute respiratory distress syndrome (ARDS) due to 2019-nCoV SNOMED Code(s): 19890198 Code(s): U07.1 - COVID-19; J80 - ACUTE RESPIRATORY DISTRESS SYNDROME Status : Acute Current Visit: Yes (12) Septic shock SNOMED Code(s): 57487422 Code(s): A41.9 - SEPSIS, UNSPECIFIED ORGANISM; R65.21 - SEVERE SEPSIS WITH SEPTIC SHOCK Status: Acute Current Visit: Yes - Problem List Review Problem List Initiated/Reviewed/Updated: Yes - Plan Plan:: Day of Admission - ED for fever, nonproductive cough, and watery diarrhea on 10/15/2019 + decreased appetite for about 1 week. - He chronically has shortness of breath and dyspnea on exertion, but now presents because it got much worse in the last day or two - In the ED, the patient is found to be hemodynamically stable, but with a fever of 102.6 degrees, saturating around 69 to 70% on room air, up to 87-88 sent on a nonrebreather mask. - Respiratory failure in ICU and intubated - Started on Rocephin DAY 1 - COVID19 reported positive - Started on Plaquenil DAY 2 - Worsening kidney function - Phosphate continues to increase, started on phosphate binders, calcium acetate - Dietary recommending adjusting diet due to protein load - Urinary output improved mildly with Lasix IV DAY 3 - Oxygenation continued to worsen - Bradycardia with minimal response to atropine - Changed code status to DNR PLAN BY SYSTEMS: Neurology: Minimize central acting medications as possible. Daily sedation vacation. Frequent neurologic exams by nursing staff. Continue sedation with Fentanyl and versed for now and taper down as tolerated. Respiratory: Continue mechanical ventilation with ARDS COVID protocol Continue Plaquenil Endotracheal tube care by RT. As needed nebulizations. Regular suctioning. Aspiration precautions. Daily SBT. Daily CXR as needed ABGs as needed to evaluate need for MV parameter adjustments. Cardiovascular: Sepsis protocol. Continue Norepinephrine for now and wean off as tolerated for MAP goal >65 GI and Nutrition: Continue enteral nutrition via NG tube with Osmolyte 1.5 NG tube care. Monitor residuals and adjust tube feedings rate as tolerated. Scheduled free water flushes. PRN bowel regimen. Kidney and Electrolytes: Strict monitoring of intake, output and overall fluid balance. Maintain neutral as possible. Avoid nephrotoxic medications. Medications to be dosed according to renal function. Monitor electrolytes and replace as needed. Trend creatinine and BUN. Continue Lasix IV Endocrine: Scheduled Accu-checks. Hypoglycemia protocol in place. Infectious Disease: Trend temperature. Panculture if febrile. Follow up on cultures from admission Continue Rocephin and Plaquenil. Procalcitonin every 48 hours. Follow up on cultures Maximum isolation precautions Hematology and Coagulation: No active bleeding, no coagulopathy to correct, no need to transfuse blood products at the moment. Goal hemoglobin >7g Musculoskeletal and Skin: Bed turn rotation by nursing staff. Daily evaluation for pressure ulcers. PROPHYLAXIS: DVT- SCDs GI- Pantoprazole CODE STATUS: FULL CODE DISPOSITION: Patient will remain admitted to the ICU for mechanical ventilation
[2019-10-30] MEDS: cefTRIAXone 2 GM in Sodium Chloride 0.9% 100 ML IV SCH (02:34)
[2019-10-30] MEDS: HYDROXYCHLOROQUINE 25 MG/ML PO SCH (05:31)
[2019-10-30] MEDS: Calcium Acetate 667 MG Cap NGTUBE SCH ×3 (06:26→17:21)
[2019-10-30] MEDS: Pantoprazole 40 MG Vial IVPUSH SCH (06:26)
[2019-10-30] MEDS: methylPREDNISolone Sodium Succinate 125 MG/2 ML SDV IVPUSH SCH ×4 (06:26→22:23)
[2019-10-30] MEDS: Furosemide 40 MG/4 ML VIAL IVPUSH SCH ×2 (08:44→20:19)
[2019-10-30] MEDS: propofoL 100 ML IV SCH ×2 (10:49→17:57)
[2019-10-30] MEDS: Norepinephrine 16 MG in Dextrose 5% in Water 234 ML IV SCH ×2 (12:42)
[2019-10-30] MEDS: fentaNYL 2,500 MCG in Sodium Chloride 0.9% 200 ML IV SCH (12:42)
--- NOTE | 2019-10-30 19:35 | PCM.PN ---
- General Info Date of Service: 10/30/19 Subjective Update: Overnight Events: Vital Signs: BP trend: 142-175/50-64 HR trend: 41-51 Tmax: 95.2-96.5 SatO2: >88% Drips: Fentanyl 18 Levophed 12 Versed 15 Propofol 20 Mechanical Ventilation: Intubation day: 10/24 Mode: ACVC Vt:350 FiO2: 40 PEEP: 14 Rate: 34 Ppeak: 26 Pmean: 21 Balance: UO: 1110 Balance + 2,274 Balance since admission: +9,622 Infectious Disease: Antibiotics: Rocephin day 5 and Plaquenil dose 11/30 Cultures: COVID19 positive BCx negative x 5 days Diet: Osmolite 1.5 at 20ml/hr goal 50 with free water flushes 50mL q6h - Patient Data Vitals - Most Recent: Last Vital Signs Temp 95.5 F L 10/30/19 16:00 Pulse 41 L 10/30/19 06:51 Resp 31 H 10/30/19 18:50 BP 123/52 L 10/30/19 16:00 Pulse Ox 95 10/30/19 18:50 Weight - Most Recent: 138.21 kg - Exam Physical Findings Comments:: Quality Assessment: Supplemental Oxygen, Central Line/PICC, Urine Catheter, DVT Prophylaxis. No: Skin Breakdown General: Sedated HEENT: Pupils Equal, Pupils Reactive, Mucous Membr. Moist/[place] Neck: Supple. No: Lymphadenopathy Lungs: Decreased Breath Sounds Cardiovascular: Bradycardia. No: Murmurs, Gallops, Rubs GI/Abdominal Exam: Distended Extremities: Pedal Edema, Slow Capillary Refill Skin: Dry, Cool Sepsis Event Note - Evaluation Sepsis Screening Result: No Definite Risk - Focused Exam Vital Signs: Vital Signs Temp Resp BP Pulse Ox Pulse Ox 10/30/19 18:50 31 H 95 10/30/19 18:40 20 95 10/30/19 18:30 28 H 95 10/30/19 18:20 25 H 94 L 10/30/19 18:10 17 94 L 10/30/19 18:00 16 93 L 10/30/19 17:50 14 93 L 10/30/19 17:40 21 H 93 L 10/30/19 17:30 17 93 L 10/30/19 17:20 19 93 L 10/30/19 17:10 16 93 L 10/30/19 17:00 22 H 93 L 10/30/19 16:50 20 94 L 10/30/19 16:40 22 H 94 L 10/30/19 16:30 27 H 94 L 10/30/19 16:20 27 H 94 L 10/30/19 16:10 29 H 97 10/30/19 16:05 93 L 10/30/19 16:00 95.5 F L 34 H 123/52 L 91 L 10/30/19 15:50 34 H 91 L 10/30/19 15:40 34 H 91 L 10/30/19 15:30 34 H 92 L 10/30/19 15:20 34 H 92 L 10/30/19 15:10 34 H 92 L 10/30/19 15:00 34 H 92 L 10/30/19 14:50 27 H 92 L 10/30/19 14:40 34 H 92 L 10/30/19 14:30 34 H 92 L 10/30/19 14:20 34 H 92 L 10/30/19 14:10 34 H 92 L 10/30/19 14:00 30 H 92 L 10/30/19 13:50 23 H 92 L 10/30/19 13:40 30 H 92 L 10/30/19 13:30 27 H 92 L 10/30/19 13:20 34 H 92 L 10/30/19 13:10 25 H 92 L 10/30/19 13:00 25 H 92 L 10/30/19 12:50 24 H 92 L 10/30/19 12:40 23 H 92 L 91 L 10/30/19 12:30 30 H 95 10/30/19 12:20 34 H 95 10/30/19 12:10 34 H 95 10/30/19 12:00 95.5 F L 34 H 120/54 L 95 10/30/19 11:50 31 H 95 10/30/19 11:40 34 H 95 10/30/19 11:30 30 H 95 10/30/19 11:20 35 H 95 10/30/19 11:10 28 H 95 10/30/19 11:00 34 H 94 L 10/30/19 10:50 30 H 91 L 10/30/19 10:40 34 H 95 10/30/19 10:30 27 H 95 10/30/19 10:20 30 H 95 10/30/19 10:10 31 H 95 10/30/19 10:00 27 H 95 95 10/30/19 09:50 25 H 95 10/30/19 09:40 34 H 95 10/30/19 09:30 27 H 95 10/30/19 09:20 34 H 95 10/30/19 09:10 30 H 96 10/30/19 09:00 34 H 96 10/30/19 08:50 34 H 94 L 10/30/19 08:40 30 H 93 L 10/30/19 08:30 23 H 73 L 10/30/19 08:20 34 H 90 L 10/30/19 08:10 34 H 91 L 91 L 10/30/19 08:00 95.5 F L 34 H 150/59 H 91 L 10/30/19 07:50 34 H 91 L 10/30/19 07:40 34 H 91 L Date Exam was Performed: 10/30/19 Time Exam was Performed: 20:25 - Problem List & Annotations (1) Sepsis SNOMED Code(s): 96651759 Code(s): A41.9 - SEPSIS, UNSPECIFIED ORGANISM Status: Acute Current Visit : Yes (2) ARDS (adult respiratory distress syndrome) SNOMED Code(s): 14212866, 96528734 Code(s): J80 - ACUTE RESPIRATORY DISTRESS SYNDROME Status: Acute Current Visit: Yes (3) Acute renal failure SNOMED Code(s): 87326732 Code(s): N17.9 - ACUTE KIDNEY FAILURE, UNSPECIFIED Status: Acute Current Visit: No Qualifiers: Acute renal failure type: unspecified Qualified Code(s): N17.9 - Acute kidney failure, unspecified (4) Obstructive sleep apnea SNOMED Code(s): 36623718 Code(s): G47.33 - OBSTRUCTIVE SLEEP APNEA (ADULT) (PEDIATRIC) Status: Acute Current Visit: No (5) Shortness of breath SNOMED Code(s): 018455320 Code(s): R06.02 - SHORTNESS OF BREATH Status: Acute Current Visit: No (6) COPD (chronic obstructive pulmonary disease) SNOMED Code(s): 57882668 Code(s): J44.9 - CHRONIC OBSTRUCTIVE PULMONARY DISEASE, UNSPECIFIED Status : Acute Current Visit: Yes (7) Chronic renal failure, stage 3 (moderate) SNOMED Code(s): 98200220, 306030548 Code(s): N18.3 - CHRONIC KIDNEY DISEASE, STAGE 3 (MODERATE) Status: Acute Current Visit: Yes (8) HTN (hypertension) SNOMED Code(s): 71346606 Code(s): I10 - ESSENTIAL (PRIMARY) HYPERTENSION Status: Acute Current Visit: No (9) Renal insufficiency SNOMED Code(s): 582616611, 378329869 Code(s): N28.9 - DISORDER OF KIDNEY AND URETER, UNSPECIFIED Status: Acute Current Visit: No (10) COVID-19 SNOMED Code(s): 210307094 Code(s): U07.1 - COVID-19 Status: Acute Current Visit: Yes (11) Acute respiratory distress syndrome (ARDS) due to 2019-nCoV SNOMED Code(s): 43326112 Code(s): U07.1 - COVID-19; J80 - ACUTE RESPIRATORY DISTRESS SYNDROME Status : Acute Current Visit: Yes (12) Septic shock SNOMED Code(s): 92267349 Code(s): A41.9 - SEPSIS, UNSPECIFIED ORGANISM; R65.21 - SEVERE SEPSIS WITH SEPTIC SHOCK Status: Acute Current Visit: Yes - Problem List Review Problem List Initiated/Reviewed/Updated: Yes - Plan Plan:: Day of Admission - ED for fever, nonproductive cough, and watery diarrhea on 10/15/2019 + decreased appetite for about 1 week. - He chronically has shortness of breath and dyspnea on exertion, but now presents because it got much worse in the last day or two - In the ED, the patient is found to be hemodynamically stable, but with a fever of 102.6 degrees, saturating around 69 to 70% on room air, up to 87-88 sent on a nonrebreather mask. - Respiratory failure in ICU and intubated - Started on Rocephin DAY 1 - COVID19 reported positive - Started on Plaquenil DAY 2 - Worsening kidney function - Phosphate continues to increase, started on phosphate binders, calcium acetate - Dietary recommending adjusting diet due to protein load - Urinary output improved mildly with Lasix IV DAY 3 - Oxygenation continued to worsen - Bradycardia with minimal response to atropine - Changed code status to DNR DAY 4 - Still making urine - Respiratory status without improvement - Bradycardia however BP stable PLAN BY SYSTEMS: Neurology: Minimize central acting medications as possible. Daily sedation vacation. Frequent neurologic exams by nursing staff. Continue sedation with Propofol, Fentanyl and versed for now and taper down as tolerated. Respiratory: Continue mechanical ventilation with ARDS COVID protocol Continue Plaquenil Endotracheal tube care by RT. As needed nebulizations. Regular suctioning. Aspiration precautions. Daily SBT. Daily CXR as needed ABGs as needed to evaluate need for MV parameter adjustments. Cardiovascular: Sepsis protocol. Continue Norepinephrine for now and wean off as tolerated for MAP goal >65 GI and Nutrition: Continue enteral nutrition via NG tube with Osmolyte 1.5 NG tube care. Monitor residuals and adjust tube feedings rate as tolerated. Scheduled free water flushes. PRN bowel regimen. Kidney and Electrolytes: Strict monitoring of intake, output and overall fluid balance. Maintain neutral as possible. Avoid nephrotoxic medications. Medications to be dosed according to renal function. Monitor electrolytes and replace as needed. Trend creatinine and BUN. Continue Lasix IV Increase frequency of Calcium acetate to q4h Endocrine: Scheduled Accu-checks. Hypoglycemia protocol in place. Infectious Disease: Trend temperature. Panculture if febrile. Follow up on cultures from admission Continue Rocephin and Plaquenil. Procalcitonin every 48 hours. Follow up on cultures Maximum isolation precautions Hematology and Coagulation: No active bleeding, no coagulopathy to correct, no need to transfuse blood products at the moment. Goal hemoglobin >7g Musculoskeletal and Skin: Bed turn rotation by nursing staff. Daily evaluation for pressure ulcers. PROPHYLAXIS: DVT- SCDs GI- Pantoprazole CODE STATUS: FULL CODE DISPOSITION: Patient will remain admitted to the ICU for mechanical ventilation
[2019-10-30] MEDS: Calcium Acetate 667 MG Cap PO SCH ×2 (20:19→23:11)
[2019-10-31] MEDS: cefTRIAXone 2 GM in Sodium Chloride 0.9% 100 ML IV SCH (00:26)
[2019-10-31] MEDS: Calcium Acetate 667 MG Cap PO SCH ×5 (03:46→20:13)
[2019-10-31] MEDS: methylPREDNISolone Sodium Succinate 125 MG/2 ML SDV IVPUSH SCH ×3 (05:29→22:32)
[2019-10-31] MEDS: Pantoprazole 40 MG Vial IVPUSH SCH (05:29)
[2019-10-31] MEDS: HYDROXYCHLOROQUINE 25 MG/ML PO SCH (05:29)
[2019-10-31] MEDS: propofoL 100 ML IV SCH (05:30)
--- NOTE | 2019-10-31 08:30 | PCM.PN ---
- General Info Date of Service: 10/31/19 Subjective Update: Overnight Events: - Levophed off since 1:40AM Vital Signs: BP trend: 99-150/44-60 HR trend: 41-51 Tmax: 95.2-96.5 SatO2: >88% Drips: Fentanyl 18 Levophed 12 Versed 15 Propofol 20 Mechanical Ventilation: Intubation day: 10/24 Mode: ACVC Vt:350 FiO2: 40 PEEP: 14 Rate: 34 Ppeak: 26 Pmean: 21 Balance: UO: 1,750 Balance + 550 Balance since admission: +10,172 Labs: WBC 11.42-->16.58 Hb 12.7-->11.2 Lymphocytes 580-->830 DD continues to be unmeasurably high BUN 69-->95, GFR 8-->7 Troponin remains negative TG 466-->489 Infectious Disease: Antibiotics: Completed Rocephin and Plaquenil Cultures: COVID19 positive BCx negative x 5 days Diet: Osmolite 1.5 at 20ml/hr goal 50 with free water flushes 50mL q6h - Patient Data Vitals - Most Recent: Last Vital Signs Temp 96.1 F L 10/31/19 00:00 Pulse 58 L 10/31/19 07:00 Resp 21 H 10/31/19 05:48 BP 126/57 L 10/31/19 07:00 Pulse Ox 88 L 10/31/19 06:25 Weight - Most Recent: 137.484 kg - Exam Quality Assessment: Supplemental Oxygen, Central Line/PICC, Urine Catheter, DVT Prophylaxis. No: Skin Breakdown General: Sedated HEENT: Pupils Equal, Pupils Reactive, Mucous Membr. Moist/[place]. No: Scleral Icterus Lungs: Decreased Breath Sounds, Crackles. No: Rales, Rhonchi, Rub, Stridor, Wheezing Cardiovascular: Regular Rhythm, Bradycardia. No: Murmurs, Gallops, Rubs GI/Abdominal Exam: Distended, Abnormal Bowel Sounds (hypoactive). No: Guarding , Rigid Extremities: Pedal Edema, Slow Capillary Refill Skin: Dry, Cool Sepsis Event Note - Evaluation Sepsis Screening Result: No Definite Risk - Focused Exam Vital Signs: Vital Signs Temp Pulse Resp BP Pulse Ox Pulse Ox 10/31/19 07:00 58 L 126/57 L 04/05/20 06:25 88 L 10/31/19 05:48 49 L 21 H 121/57 L 92 L 10/31/19 05:09 34 H 92 L 10/31/19 05:00 47 L 120/56 L 10/31/19 04:00 47 L 17 120/56 L 92 L 10/31/19 03:00 49 L 17 123/57 L 92 L 10/31/19 02:45 34 H 92 L 10/31/19 01:57 50 L 107/52 L 10/31/19 01:00 51 L 136/60 10/31/19 00:36 35 H 92 L 10/31/19 00:00 96.1 F L 51 L 24 H 135/60 92 L 10/30/19 23:00 51 L 135/59 L 10/30/19 22:00 45 L 34 H 120/52 L 94 L 10/30/19 21:45 34 H 95 Date Exam was Performed: 10/31/19 Time Exam was Performed: 19:50 - Problem List & Annotations (1) Sepsis SNOMED Code(s): 94597216 Code(s): A41.9 - SEPSIS, UNSPECIFIED ORGANISM Status: Acute Current Visit : Yes (2) ARDS (adult respiratory distress syndrome) SNOMED Code(s): 91858578, 24579886 Code(s): J80 - ACUTE RESPIRATORY DISTRESS SYNDROME Status: Acute Current Visit: Yes (3) Acute renal failure SNOMED Code(s): 05754069 Code(s): N17.9 - ACUTE KIDNEY FAILURE, UNSPECIFIED Status: Acute Current Visit: No Qualifiers: Acute renal failure type: unspecified Qualified Code(s): N17.9 - Acute kidney failure, unspecified (4) Obstructive sleep apnea SNOMED Code(s): 99701568 Code(s): G47.33 - OBSTRUCTIVE SLEEP APNEA (ADULT) (PEDIATRIC) Status: Acute Current Visit: No (5) Shortness of breath SNOMED Code(s): 660095898 Code(s): R06.02 - SHORTNESS OF BREATH Status: Acute Current Visit: No (6) COPD (chronic obstructive pulmonary disease) SNOMED Code(s): 92558047 Code(s): J44.9 - CHRONIC OBSTRUCTIVE PULMONARY DISEASE, UNSPECIFIED Status : Acute Current Visit: Yes (7) Chronic renal failure, stage 3 (moderate) SNOMED Code(s): 59994889, 309658053 Code(s): N18.3 - CHRONIC KIDNEY DISEASE, STAGE 3 (MODERATE) Status: Acute Current Visit: Yes (8) HTN (hypertension) SNOMED Code(s): 65508095 Code(s): I10 - ESSENTIAL (PRIMARY) HYPERTENSION Status: Acute Current Visit: No (9) Renal insufficiency SNOMED Code(s): 925291599, 268266915 Code(s): N28.9 - DISORDER OF KIDNEY AND URETER, UNSPECIFIED Status: Acute Current Visit: No (10) COVID-19 SNOMED Code(s): 771698290 Code(s): U07.1 - COVID-19 Status: Acute Current Visit: Yes (11) Acute respiratory distress syndrome (ARDS) due to 2019-nCoV SNOMED Code(s): 19522043 Code(s): U07.1 - COVID-19; J80 - ACUTE RESPIRATORY DISTRESS SYNDROME Status : Acute Current Visit: Yes (12) Septic shock SNOMED Code(s): 97056074 Code(s): A41.9 - SEPSIS, UNSPECIFIED ORGANISM; R65.21 - SEVERE SEPSIS WITH SEPTIC SHOCK Status: Acute Current Visit: Yes - Problem List Review Problem List Initiated/Reviewed/Updated: Yes - Plan Plan:: Day of Admission - ED for fever, nonproductive cough, and watery diarrhea on 10/15/2019 + decreased appetite for about 1 week. - He chronically has shortness of breath and dyspnea on exertion, but now presents because it got much worse in the last day or two - In the ED, the patient is found to be hemodynamically stable, but with a fever of 102.6 degrees, saturating around 69 to 70% on room air, up to 87-88 sent on a nonrebreather mask. - Respiratory failure in ICU and intubated - Started on Rocephin DAY 1 - COVID19 reported positive - Started on Plaquenil DAY 2 - Worsening kidney function - Phosphate continues to increase, started on phosphate binders, calcium acetate - Dietary recommending adjusting diet due to protein load - Urinary output improved mildly with Lasix IV DAY 3 - Oxygenation continued to worsen - Bradycardia with minimal response to atropine - Changed code status to DNR DAY 4 - Still making urine - Respiratory status without improvement - Bradycardia however BP stable DAY5 - Continues to be bradycardic - Intermittently hypertensive - Completes Rocephin and Plaquenil - Started on Solumedrol DAY 6 - pH closer to normal, 7.26 - Labs continue to worsen - Triglycerides trending up - Significantly + balance PLAN BY SYSTEMS: Neurology: Minimize central acting medications as possible. Daily sedation vacation. Frequent neurologic exams by nursing staff. Discontinue Propofol Start Vecuronium Continue sedation with Fentanyl and versed for now and taper down as tolerated. Respiratory: Continue mechanical ventilation with ARDS COVID protocol Continue Plaquenil Endotracheal tube care by RT. As needed nebulizations. Regular suctioning. Aspiration precautions. Daily SBT. Daily CXR as needed ABGs as needed to evaluate need for MV parameter adjustments. Cardiovascular: Sepsis protocol. Continue Norepinephrine for now and wean off as tolerated for MAP goal >65 Increase Lasix GI and Nutrition: Continue enteral nutrition via NG tube with Osmolyte 1.5 NG tube care. Monitor residuals and adjust tube feedings rate as tolerated. Scheduled free water flushes. PRN bowel regimen. Kidney and Electrolytes: Strict monitoring of intake, output and overall fluid balance. Maintain neutral as possible. Avoid nephrotoxic medications. Medications to be dosed according to renal function. Monitor electrolytes and replace as needed. Trend creatinine and BUN. Increase Lasix to 100 IV BID Continue Calcium acetate q4h Endocrine: Scheduled Accu-checks. Hypoglycemia protocol in place. Infectious Disease: Trend temperature. Panculture if febrile. Follow up on cultures from admission Procalcitonin every 48 hours. Follow up on cultures Maximum isolation precautions Hematology and Coagulation: No active bleeding, no coagulopathy to correct, no need to transfuse blood products at the moment. Goal hemoglobin >7g Musculoskeletal and Skin: Bed turn rotation by nursing staff. Daily evaluation for pressure ulcers. PROPHYLAXIS: DVT- SCDs GI- Pantoprazole CODE STATUS: DNR DISPOSITION: Patient will remain admitted to the ICU for mechanical ventilation
[2019-10-31] MEDS: Vecuronium 10 MG in Sodium Chloride 0.9% 100 ML IV SCH ×4 (09:52→23:01)
[2019-10-31] MEDS: Furosemide 40 MG/4 ML VIAL IVPUSH SCH (09:53)
[2019-10-31] MEDS: fentaNYL 2,500 MCG in Sodium Chloride 0.9% 200 ML IV SCH (11:52)
--- NOTE | 2019-10-31 13:24 | CR ---
Chest: Frontal view of the chest was obtained. Comparison: Previous chest x-ray of 10/26/19. Slight increasing parenchymal density within the right lung base compatible with worsening pneumonia. Lung markings are diffusely increased on both sides which are also slightly more prominent. Endotracheal tube is seen with tip lying at the lower level of the clavicles and satisfactory in position. Right-sided jugular line is noted. Degenerative change is scattered within the spine. Nasogastric tube is seen with tip lying within the stomach. Impression: 1. Slight increasing lung markings on both sides of the chest as well as mild increasing density within the right lung base. 2. Stable nasogastric tube, endotracheal tube and right jugular line. Diagnostic code #3 Study was dictated in MDT
--- NOTE | 2019-10-31 13:24 | CR ---
Abdomen: Supine view of the abdomen was obtained. Comparison: No prior abdominal plain film study, previous CT abdomen and pelvis study of 07/22/15. Bowel gas pattern appears normal. Nasogastric tube is seen with tip lying within the proximal stomach. Mild degenerative change is scattered throughout the spine. Impression: 1. Tip of nasogastric tube within the proximal stomach. 2. Nothing acute is seen on supine abdominal x-ray. Diagnostic code #2 Study was dictated in MDT
[2019-10-31] MEDS ORDERED: hydrALAZINE 20 MG/ML SDV IVPUSH PRN ×2 (14:05→14:15)
[2019-10-31] MEDS ORDERED: hydrALAZINE 20 MG/ML SDV ONE (14:08)
[2019-10-31] MEDS ORDERED: Metoclopramide 10 MG/2 ML SDV IVPUSH SCH (14:15)
[2019-10-31] MEDS: Metoclopramide 10 MG/2 ML SDV IVPUSH SCH ×2 (14:24→22:32)
[2019-10-31] MEDS ORDERED: Furosemide 100 MG/10 ML SDV IVPUSH SCH (16:27)
[2019-10-31] MEDS ORDERED: SODIUM CHLORIDE IV SCH (21:00)
[2019-10-31] MEDS ORDERED: FUROSEMIDE IV SCH (21:00)
[2019-11-01] MEDS: Calcium Acetate 667 MG Cap PO SCH ×7 (00:05→22:30)
[2019-11-01] MEDS: cefTRIAXone 2 GM in Sodium Chloride 0.9% 100 ML IV SCH (02:10)
[2019-11-01] MEDS: Vecuronium 10 MG in Sodium Chloride 0.9% 100 ML IV SCH ×4 (04:39→20:48)
[2019-11-01] MEDS: fentaNYL 2,500 MCG in Sodium Chloride 0.9% 200 ML IV SCH ×2 (04:39→21:20)
[2019-11-01 06:00] VITALS: PULSE 49
[2019-11-01] MEDS: methylPREDNISolone Sodium Succinate 125 MG/2 ML SDV IVPUSH SCH (06:27)
[2019-11-01] MEDS: Metoclopramide 10 MG/2 ML SDV IVPUSH SCH ×3 (06:27→21:02)
[2019-11-01] MEDS: Pantoprazole 40 MG Vial IVPUSH SCH (06:27)
[2019-11-01] MEDS: [UNRECOGNIZED DRUG - OTHER] IV SCH ×2 (09:21→20:45)
[2019-11-01] MEDS: FUROSEMIDE IV SCH ×2 (09:21→20:45)
[2019-11-01] MEDS ORDERED: Norepinephrine 4 MG in Dextrose 5% in Water 246 ML IV SCH ×2 (11:00)
[2019-11-01] MEDS ORDERED: Vancomycin 1 GM, Vancomycin 500 MG in Sodium Chloride 0.9% 250 ML IV ONE (12:30)
[2019-11-01] MEDS: Cefepime 2 GM in Premix Bag 1 BAG IV SCH (13:22)
[2019-11-01] MEDS: methylPREDNISolone Sodium Succinate 40 MG/1 ML SDV IVPUSH SCH ×2 (13:27→21:02)
[2019-11-01] MEDS: Azithromycin 500 MG in Sodium Chloride 0.9% 250 ML IV SCH (13:29)
--- NOTE | 2019-11-01 14:37 | PCM.PN ---
- General Info Date of Service: 11/01/19 Subjective Update: Overnight Events: - None Vital Signs: BP trend: 85-120 HR trend: 40-50 T trend: 95.1-98.1 SatO2: >89% Drips: Fentanyl 15 Versed 15 Vecuronium 0.24mcg/kg Mechanical Ventilation: Intubation day: 10/24 Mode: ACVC Vt:440 FiO2: 40 PEEP: 14 Rate: 34 Ppeak: 29 Balance: UO: 1,275 Balance + 1,072 Balance since admission: +11,390 Labs: WBC 16.39--> 19.69 Lymphocytes 940--> 1100 DD continues to be unmeasurably high BUN 107-->133 PO4 6.6-->8.6 LDH 288-->325 Procalcitonin 0.91 proBNP 5809-->4057 Troponin remains negative Infectious Disease: Antibiotics: Completed Rocephin and Plaquenil Cultures: COVID19 positive BCx negative x 5 days Diet: Vital AF - Patient Data Vitals - Most Recent: Last Vital Signs Temp 93.6 F L 11/01/19 12:00 Pulse 49 L 11/01/19 06:00 Resp 34 H 11/01/19 12:00 BP 104/52 L 11/01/19 12:00 Pulse Ox 93 L 11/01/19 14:20 Weight - Most Recent: 134 kg - Exam Quality Assessment: Supplemental Oxygen, Central Line/PICC, Urine Catheter, DVT Prophylaxis General: Sedated HEENT: Mucous Membr. Moist/[place] Lungs: Decreased Breath Sounds, Crackles. No: Rales, Rhonchi, Rub, Stridor Cardiovascular: Regular Rhythm, Bradycardia. No: Murmurs, Gallops, Rubs GI/Abdominal Exam: Distended, Abnormal Bowel Sounds Extremities: Other (generalized edema) Skin: Cool Sepsis Event Note - Evaluation Sepsis Screening Result: Severe Sepsis Risk - Focused Exam Vital Signs: Vital Signs Temp Pulse Resp BP Pulse Ox Pulse Ox 11/01/19 14:20 93 L 11/01/19 12:45 96 11/01/19 12:00 93.6 F L 34 H 104/52 L 95 11/01/19 10:24 92 L 11/01/19 09:39 34 H 131/124 H 97 11/01/19 08:33 96 04/06/20 07:00 34 H 131/124 H 97 11/01/19 06:00 49 L 34 H 142/62 H 97 96 11/01/19 05:00 49 L 34 H 97 11/01/19 04:00 55 L 34 H 144/63 H 97 11/01/19 03:00 62 34 H 98 Date Exam was Performed: 11/02/19 Time Exam was Performed: 15:30 - Problem List & Annotations (1) Sepsis SNOMED Code(s): 18188145 Code(s): A41.9 - SEPSIS, UNSPECIFIED ORGANISM Status: Acute Current Visit : Yes (2) ARDS (adult respiratory distress syndrome) SNOMED Code(s): 56465840, 88539454 Code(s): J80 - ACUTE RESPIRATORY DISTRESS SYNDROME Status: Acute Current Visit: Yes (3) Acute renal failure SNOMED Code(s): 10822699 Code(s): N17.9 - ACUTE KIDNEY FAILURE, UNSPECIFIED Status: Acute Current Visit: No Qualifiers: Acute renal failure type: unspecified Qualified Code(s): N17.9 - Acute kidney failure, unspecified (4) Obstructive sleep apnea SNOMED Code(s): 55389430 Code(s): G47.33 - OBSTRUCTIVE SLEEP APNEA (ADULT) (PEDIATRIC) Status: Acute Current Visit: No (5) Shortness of breath SNOMED Code(s): 030007313 Code(s): R06.02 - SHORTNESS OF BREATH Status: Acute Current Visit: No (6) COPD (chronic obstructive pulmonary disease) SNOMED Code(s): 23834490 Code(s): J44.9 - CHRONIC OBSTRUCTIVE PULMONARY DISEASE, UNSPECIFIED Status : Acute Current Visit: Yes (7) Chronic renal failure, stage 3 (moderate) SNOMED Code(s): 64642211, 190279951 Code(s): N18.3 - CHRONIC KIDNEY DISEASE, STAGE 3 (MODERATE) Status: Acute Current Visit: Yes (8) HTN (hypertension) SNOMED Code(s): 82422163 Code(s): I10 - ESSENTIAL (PRIMARY) HYPERTENSION Status: Acute Current Visit: No (9) Renal insufficiency SNOMED Code(s): 930010105, 055187968 Code(s): N28.9 - DISORDER OF KIDNEY AND URETER, UNSPECIFIED Status: Acute Current Visit: No (10) COVID-19 SNOMED Code(s): 838692124 Code(s): U07.1 - COVID-19 Status: Acute Current Visit: Yes (11) Acute respiratory distress syndrome (ARDS) due to 2019-nCoV SNOMED Code(s): 03956720 Code(s): U07.1 - COVID-19; J80 - ACUTE RESPIRATORY DISTRESS SYNDROME Status : Acute Current Visit: Yes (12) Septic shock SNOMED Code(s): 09128638 Code(s): A41.9 - SEPSIS, UNSPECIFIED ORGANISM; R65.21 - SEVERE SEPSIS WITH SEPTIC SHOCK Status: Acute Current Visit: Yes (13) End stage chronic kidney disease SNOMED Code(s): 64023849, 555672340 Code(s): N18.6 - END STAGE RENAL DISEASE Status: Acute Current Visit: Yes (14) Hyperphosphatemia SNOMED Code(s): 65529017 Code(s): E83.39 - OTHER DISORDERS OF PHOSPHORUS METABOLISM Status: Acute Current Visit: Yes (15) Lymphopenia SNOMED Code(s): 18746008 Code(s): D72.810 - LYMPHOCYTOPENIA Status: Acute Current Visit: Yes (16) Leukocytosis SNOMED Code(s): 238678627, 666823706 Code(s): D72.829 - ELEVATED WHITE BLOOD CELL COUNT, UNSPECIFIED Status: Acute Current Visit: Yes (17) Metabolic acidosis SNOMED Code(s): 44096136 Code(s): E87.2 - ACIDOSIS Status: Acute Current Visit: Yes (18) Hypocalcemia SNOMED Code(s): 4581075 Code(s): E83.51 - HYPOCALCEMIA Status: Acute Current Visit: Yes (19) Bradycardia SNOMED Code(s): 58236198 Code(s): R00.1 - BRADYCARDIA, UNSPECIFIED Status: Acute Current Visit: Yes (20) Healthcare-associated pneumonia SNOMED Code(s): 742314218, 751974336 Code(s): J18.9 - PNEUMONIA, UNSPECIFIED ORGANISM Status: Acute Current Visit: Yes (21) Hypothermia SNOMED Code(s): 926291824 Code(s): T68.XXXA - HYPOTHERMIA, INITIAL ENCOUNTER Status: Acute Current Visit: Yes - Problem List Review Problem List Initiated/Reviewed/Updated: Yes - Plan Plan:: Day of Admission - ED for fever, nonproductive cough, and watery diarrhea on 10/15/2019 + decreased appetite for about 1 week. - He chronically has shortness of breath and dyspnea on exertion, but now presents because it got much worse in the last day or two - In the ED, the patient is found to be hemodynamically stable, but with a fever of 102.6 degrees, saturating around 69 to 70% on room air, up to 87-88 sent on a nonrebreather mask. - Respiratory failure in ICU and intubated - Started on Rocephin DAY 1 - COVID19 reported positive - Started on Plaquenil DAY 2 - Worsening kidney function - Phosphate continues to increase, started on phosphate binders, calcium acetate - Dietary recommending adjusting diet due to protein load - Urinary output improved mildly with Lasix IV DAY 3 - Oxygenation continued to worsen - Bradycardia with minimal response to atropine - Changed code status to DNR DAY 4 - Still making urine - Respiratory status without improvement - Bradycardia however BP stable DAY5 - Continues to be bradycardic - Intermittently hypertensive - Completes Rocephin and Plaquenil - Started on Solumedrol DAY 6 - pH closer to normal, 7.26 - Labs continue to worsen - Triglycerides trending up - Significantly + balance DAY 7 - Hypothermia episode + worsening infiltrates --> healthcare associated pneumonia - Worsening kidney failure, not meeting UNIT CLERK criteria yet --> still making urine - Started on triple antibiotic coverage - Changed tube feeds to Vital AF due to high residuals, started on reglan PLAN BY SYSTEMS: Neurology: Minimize central acting medications as possible. Daily sedation vacation. Frequent neurologic exams by nursing staff. Continue sedation with Fentanyl and versed and paralysis with vecuronium Respiratory: Continue mechanical ventilation with ARDS COVID protocol Continue Plaquenil Endotracheal tube care by RT. As needed nebulizations. Regular suctioning. Aspiration precautions. Daily SBT. Daily CXR as needed ABGs as needed to evaluate need for MV parameter adjustments. Started on Levaquin, Zosyn and vancomycin Sputum culture Continue Solumedrol Cardiovascular: Sepsis protocol. Continue Norepinephrine for now and wean off as tolerated for MAP goal >65 Increase Lasix GI and Nutrition: Continue enteral nutrition via NG tube with Vital AF Start Reglan NG tube care. Monitor residuals and adjust tube feedings rate as tolerated. Scheduled free water flushes. Kidney and Electrolytes: Strict monitoring of intake, output and overall fluid balance. Maintain neutral as possible. Avoid nephrotoxic medications. Medications to be dosed according to renal function. Monitor electrolytes and replace as needed. Trend creatinine and BUN. Continue Lasix to 100 IV BID Continue Calcium acetate q4h Infectious Disease: Trend temperature. Sputum culture before Follow up on cultures Procalcitonin every 48 hours. Levaquin, Zosyn and Vancomycin Maximum isolation precautions Hematology and Coagulation: No active bleeding, no coagulopathy to correct, no need to transfuse blood products at the moment. Goal hemoglobin >7g Musculoskeletal and Skin: Bed turn rotation by nursing staff. Daily evaluation for pressure ulcers. PROPHYLAXIS: DVT- SCDs GI- Pantoprazole CODE STATUS: DNR DISPOSITION: Patient will remain admitted to the ICU for mechanical ventilation
[2019-11-02] MEDS: Vecuronium 10 MG in Sodium Chloride 0.9% 100 ML IV SCH ×4 (02:01→21:00)
[2019-11-02] MEDS: Calcium Acetate 667 MG Cap PO SCH ×6 (03:13→22:29)
[2019-11-02] MEDS: methylPREDNISolone Sodium Succinate 40 MG/1 ML SDV IVPUSH SCH ×3 (05:25→21:41)
[2019-11-02] MEDS: Metoclopramide 10 MG/2 ML SDV IVPUSH SCH ×3 (05:25→21:41)
[2019-11-02] MEDS: Pantoprazole 40 MG Vial IVPUSH SCH (05:25)
--- NOTE | 2019-11-02 08:10 | PCM.PN ---
- General Info Date of Service: 11/02/19 Subjective Update: Overnight Events: - None Vital Signs: BP trend: 85-120 HR trend: 40-50 T trend: 95.1-98.1 SatO2: >89% Drips: Fentanyl 15 Versed 15 Vecuronium 0.24mcg/kg Mechanical Ventilation: Intubation day: 10/24 Mode: ACVC Vt:440 FiO2: 40 PEEP: 14 Rate: 34 Ppeak: 29 Balance: UO: 1,275 Balance + 1,072 Balance since admission: +11,390 Labs: WBC 16.39--> 19.69 Lymphocytes 940--> 1100 DD continues to be unmeasurably high BUN 107-->133 PO4 6.6-->8.6 LDH 288-->325 Procalcitonin 0.91 proBNP 5809-->4057 Troponin remains negative Infectious Disease: Antibiotics: Completed Rocephin and Plaquenil Cultures: COVID19 positive BCx negative x 5 days Diet: Vital AF - Patient Data Vitals - Most Recent: Last Vital Signs Temp 96.6 F L 11/02/19 07:00 Pulse 49 L 11/01/19 06:00 Resp 34 H 11/02/19 07:00 BP 144/65 H 11/02/19 07:00 Pulse Ox 92 L 11/02/19 07:00 Weight - Most Recent: 135.4 kg - Exam Quality Assessment: Supplemental Oxygen, Central Line/PICC, Urine Catheter, DVT Prophylaxis General: Sedated HEENT: Mucous Membr. Moist/[place] Neck: Supple Lungs: Decreased Breath Sounds, Crackles. No: Rales, Rhonchi, Rub, Stridor, Wheezing Cardiovascular: Regular Rhythm, Bradycardia. No: Murmurs, Gallops, Rubs GI/Abdominal Exam: Distended, Abnormal Bowel Sounds (hypoactive) Extremities: Other (generalized anasarca) Sepsis Event Note - Evaluation Sepsis Screening Result: Severe Sepsis Risk - Focused Exam Vital Signs: Vital Signs Temp Temp Resp BP Pulse Ox Pulse Ox 11/02/19 07:00 96.6 F L 34 H 144/65 H 92 L 11/02/19 06:00 96.8 F L 34 H 135/61 93 L 11/02/19 05:53 92 L 11/02/19 05:00 97.7 F 34 H 119/56 L 90 L 11/02/19 04:38 90 L 11/02/19 04:00 98.2 F 34 H 117/55 L 91 L 11/02/19 03:00 99.1 F 34 H 107/51 L 94 L 11/02/19 02:00 100.4 F 34 H 111/54 L 94 L 11/02/19 01:00 100.0 F 34 H 110/52 L 94 L 11/02/19 00:00 99.1 F 34 H 116/53 L 92 L 11/01/19 23:00 99.1 F 34 H 114/53 L 92 L 11/01/19 22:15 92 L 11/01/19 22:00 98.4 F 34 H 113/53 L 92 L 11/01/19 21:00 96.6 F L 34 H 101/51 L 91 L 11/01/19 20:50 97.3 F 34 H 91 L 11/01/19 20:46 91 L 11/01/19 20:40 97.0 F 34 H 92 L 11/01/19 20:30 97.0 F 34 H 92 L 11/01/19 20:20 96.4 F L 34 H 92 L 11/01/19 20:10 96.4 F L 34 H 92 L Date Exam was Performed: 11/02/19 Time Exam was Performed: 19:34 - Problem List & Annotations (1) Sepsis SNOMED Code(s): 27253931 Code(s): A41.9 - SEPSIS, UNSPECIFIED ORGANISM Status: Acute Current Visit : Yes (2) ARDS (adult respiratory distress syndrome) SNOMED Code(s): 65875991, 57199840 Code(s): J80 - ACUTE RESPIRATORY DISTRESS SYNDROME Status: Acute Current Visit: Yes (3) Acute renal failure SNOMED Code(s): 29322433 Code(s): N17.9 - ACUTE KIDNEY FAILURE, UNSPECIFIED Status: Acute Current Visit: No Qualifiers: Acute renal failure type: unspecified Qualified Code(s): N17.9 - Acute kidney failure, unspecified (4) Obstructive sleep apnea SNOMED Code(s): 94178281 Code(s): G47.33 - OBSTRUCTIVE SLEEP APNEA (ADULT) (PEDIATRIC) Status: Acute Current Visit: No (5) Shortness of breath SNOMED Code(s): 991050763 Code(s): R06.02 - SHORTNESS OF BREATH Status: Acute Current Visit: No (6) COPD (chronic obstructive pulmonary disease) SNOMED Code(s): 77775203 Code(s): J44.9 - CHRONIC OBSTRUCTIVE PULMONARY DISEASE, UNSPECIFIED Status : Acute Current Visit: Yes (7) Chronic renal failure, stage 3 (moderate) SNOMED Code(s): 84185958, 491638427 Code(s): N18.3 - CHRONIC KIDNEY DISEASE, STAGE 3 (MODERATE) Status: Acute Current Visit: Yes (8) HTN (hypertension) SNOMED Code(s): 30296861 Code(s): I10 - ESSENTIAL (PRIMARY) HYPERTENSION Status: Acute Current Visit: No (9) Renal insufficiency SNOMED Code(s): 770978989, 521768838 Code(s): N28.9 - DISORDER OF KIDNEY AND URETER, UNSPECIFIED Status: Acute Current Visit: No (10) COVID-19 SNOMED Code(s): 080987417 Code(s): U07.1 - COVID-19 Status: Acute Current Visit: Yes (11) Acute respiratory distress syndrome (ARDS) due to 2019-nCoV SNOMED Code(s): 29018867 Code(s): U07.1 - COVID-19; J80 - ACUTE RESPIRATORY DISTRESS SYNDROME Status : Acute Current Visit: Yes (12) Septic shock SNOMED Code(s): 05257188 Code(s): A41.9 - SEPSIS, UNSPECIFIED ORGANISM; R65.21 - SEVERE SEPSIS WITH SEPTIC SHOCK Status: Acute Current Visit: Yes (13) Bradycardia SNOMED Code(s): 53570396 Code(s): R00.1 - BRADYCARDIA, UNSPECIFIED Status: Acute Current Visit: Yes (14) End stage chronic kidney disease SNOMED Code(s): 27154063, 212222697 Code(s): N18.6 - END STAGE RENAL DISEASE Status: Acute Current Visit: Yes (15) Healthcare-associated pneumonia SNOMED Code(s): 364883719, 671373019 Code(s): J18.9 - PNEUMONIA, UNSPECIFIED ORGANISM Status: Acute Current Visit: Yes (16) Hyperphosphatemia SNOMED Code(s): 31250870 Code(s): E83.39 - OTHER DISORDERS OF PHOSPHORUS METABOLISM Status: Acute Current Visit: Yes (17) Hypocalcemia SNOMED Code(s): 5942550 Code(s): E83.51 - HYPOCALCEMIA Status: Acute Current Visit: Yes (18) Hypothermia SNOMED Code(s): 533844977 Code(s): T68.XXXA - HYPOTHERMIA, INITIAL ENCOUNTER Status: Acute Current Visit: Yes (19) Leukocytosis SNOMED Code(s): 072960870, 855722234 Code(s): D72.829 - ELEVATED WHITE BLOOD CELL COUNT, UNSPECIFIED Status: Acute Current Visit: Yes (20) Lymphopenia SNOMED Code(s): 09765652 Code(s): D72.810 - LYMPHOCYTOPENIA Status: Acute Current Visit: Yes (21) Metabolic acidosis SNOMED Code(s): 57503230 Code(s): E87.2 - ACIDOSIS Status: Acute Current Visit: Yes (22) Hypomagnesemia SNOMED Code(s): 050601925 Code(s): E83.42 - HYPOMAGNESEMIA Status: Acute Current Visit: No - Problem List Review Problem List Initiated/Reviewed/Updated: Yes - Plan Plan:: Day of Admission - ED for fever, nonproductive cough, and watery diarrhea on 10/15/2019 + decreased appetite for about 1 week. - He chronically has shortness of breath and dyspnea on exertion, but now presents because it got much worse in the last day or two - In the ED, the patient is found to be hemodynamically stable, but with a fever of 102.6 degrees, saturating around 69 to 70% on room air, up to 87-88 sent on a nonrebreather mask. - Respiratory failure in ICU and intubated - Started on Rocephin DAY 1 - COVID19 reported positive - Started on Plaquenil DAY 2 - Worsening kidney function - Phosphate continues to increase, started on phosphate binders, calcium acetate - Dietary recommending adjusting diet due to protein load - Urinary output improved mildly with Lasix IV DAY 3 - Oxygenation continued to worsen - Bradycardia with minimal response to atropine - Changed code status to DNR DAY 4 - Still making urine - Respiratory status without improvement - Bradycardia however BP stable DAY5 - Continues to be bradycardic - Intermittently hypertensive - Completes Rocephin and Plaquenil - Started on Solumedrol DAY 6 - pH closer to normal, 7.26 - Labs continue to worsen - Triglycerides trending up - Significantly + balance DAY 7 - Hypothermia episode + worsening infiltrates --> healthcare associated pneumonia - Worsening kidney failure, not meeting STUDENT MINISTRY PASTOR criteria yet --> still making urine - Started on triple antibiotic coverage - Changed tube feeds to Vital AF due to high residuals, started on Reglan DAY 8 - Sputum growing gram negative rods - Elevated procalcitonin - Still making urine - Balance significantly positive still - Adjusting vent setting according to plateau pressure and pH PLAN BY SYSTEMS: Neurology: Minimize central acting medications as possible. Daily sedation vacation. Frequent neurologic exams by nursing staff. Continue sedation with Fentanyl and versed and paralysis with vecuronium Respiratory: Continue mechanical ventilation with ARDS COVID protocol Continue Plaquenil Endotracheal tube care by RT. As needed nebulizations. Regular suctioning. Aspiration precautions. Daily SBT. Daily CXR as needed ABGs as needed to evaluate need for MV parameter adjustments. Started on Levaquin, Zosyn and vancomycin Sputum culture, pending finalization Continue Solumedrol Cardiovascular: Sepsis protocol. Continue Norepinephrine for now and wean off as tolerated for MAP goal >65 Continue Lasix 100mg IV BID GI and Nutrition: Continue enteral nutrition via NG tube with Vital AF Continue Reglan NG tube care. Monitor residuals and adjust tube feedings rate as tolerated. Scheduled free water flushes. Kidney and Electrolytes: Strict monitoring of intake, output and overall fluid balance. Maintain neutral as possible. Avoid nephrotoxic medications. Medications to be dosed according to renal function. Monitor electrolytes and replace as needed. Trend creatinine and BUN. Continue Lasix to 100 IV BID Continue Calcium acetate q4h Infectious Disease: Trend temperature. Sputum culture before Follow up on cultures Procalcitonin every 48 hours. Levaquin, Zosyn and Vancomycin day 2 Maximum isolation precautions Hematology and Coagulation: No active bleeding, no coagulopathy to correct, no need to transfuse blood products at the moment. Goal hemoglobin >7g Musculoskeletal and Skin: Bed turn rotation by nursing staff. Daily evaluation for pressure ulcers. PROPHYLAXIS: DVT- SCDs GI- Pantoprazole CODE STATUS: DNR DISPOSITION: Patient will remain admitted to the ICU for mechanical ventilation Maximum isolation precautions
[2019-11-02] MEDS ORDERED: Vancomycin 1 GM, Vancomycin 500 MG in Sodium Chloride 0.9% 250 ML IV ONE (09:00)
[2019-11-02] MEDS: FUROSEMIDE IV SCH (09:17)
[2019-11-02] MEDS: [UNRECOGNIZED DRUG - OTHER] IV SCH (09:17)
[2019-11-02] MEDS: Azithromycin 500 MG in Sodium Chloride 0.9% 250 ML IV SCH (14:12)
[2019-11-02] MEDS: Cefepime 2 GM in Premix Bag 1 BAG IV SCH (14:12)
[2019-11-02] MEDS: fentaNYL 2,500 MCG in Sodium Chloride 0.9% 200 ML IV SCH (14:29)
[2019-11-02] MEDS: Furosemide 100 MG/10 ML SDV IVPUSH SCH (20:01)
[2019-11-03] MEDS: Vecuronium 10 MG in Sodium Chloride 0.9% 100 ML IV SCH ×2 (02:17→09:20)
[2019-11-03] MEDS: Calcium Acetate 667 MG Cap PO SCH ×5 (03:00→19:54)
[2019-11-03] MEDS: Pantoprazole 40 MG Vial IVPUSH SCH (05:43)
[2019-11-03] MEDS: methylPREDNISolone Sodium Succinate 40 MG/1 ML SDV IVPUSH SCH ×2 (05:43→14:10)
[2019-11-03] MEDS: Metoclopramide 10 MG/2 ML SDV IVPUSH SCH ×2 (05:43→14:11)
[2019-11-03] MEDS: fentaNYL 2,500 MCG in Sodium Chloride 0.9% 200 ML IV SCH (06:00)
[2019-11-03] MEDS: Furosemide 100 MG/10 ML SDV IVPUSH SCH (09:01)
[2019-11-03] MEDS: Cefepime 2 GM in Premix Bag 1 BAG IV SCH (11:33)
[2019-11-03] MEDS: Azithromycin 500 MG in Sodium Chloride 0.9% 250 ML IV SCH (12:35)
--- NOTE | 2019-11-03 14:29 | CR ---
Chest: Portable view of the chest was obtained. Comparison: Previous chest x-ray of 10/31/19. Increased density within right lung base. Lung markings are mildly increased. Findings are felt to be fairly stable from previous study. Heart size is within normal limits. Upper mediastinum is normal. Right sided jugular line is noted. Nasogastric tube courses off the inferior edge of the film into the stomach. Endotracheal tube is seen with tip lying at the lower level of clavicles. Impression: 1. Stable findings as noted above. Nothing acute is seen. Diagnostic code #3 Study was dictated in [facility]
[2019-11-03] MEDS ORDERED: LORazepam 2 MG/ML SDV IVPUSH PRN (17:41)
--- NOTE | 2019-11-03 17:44 | PCM.PN ---
- General Info Date of Service: 11/03/19 Admission Dx/Problem (Free Text): Admission Diagnosis/Problem Admission Diagnosis/Problem Respiratory distress/probable covid 19 Subjective Update: Overnight Events: - None Vital Signs: BP MAP: 77 HR trend: 60 T trend: 67.5 SatO2: >89% Drips: Fentanyl 15 Versed 5 Vecuronium 0.15mcg/hr Mechanical Ventilation: Intubation day: 10/24 Mode: ACVC Vt:365 FiO2: 35 PEEP: 13 Rate: 34 Pplat: 29 Balance: I/O Balance + 372 Balance since admission: >+11,000 Labs: WBC 16.39--> 19 Lymphocytes 940--> 1100 DD continues to be unmeasurably high BUN 107-->133-->160 PO4 6.6-->8.6-->10 LDH 288-->298 Procalcitonin 0.91 proBNP 5809-->4057 Troponin remains negative Infectious Disease: Antibiotics: Completed Rocephin and Plaquenil Cultures: COVID19 positive BCx negative x 5 days Diet: Vital AF - Review of Systems General: Reports: Other (Intubated and sedated) - Patient Data Vitals - Most Recent: Last Vital Signs Temp 97.0 F 11/03/19 17:00 Pulse 49 L 11/01/19 06:00 Resp 34 H 11/03/19 17:00 BP 123/54 L 11/03/19 17:00 Pulse Ox 93 L 11/03/19 17:00 Weight - Most Recent: 297 lb 13.512 oz I&O - Last 24 Hours: Intake & Output 11/03/19 11/03/19 11/03/19 06:59 14:59 22:59 Intake Total 179 434 7009 Output Total 315 415 100 Balance 279 -145 1098 Lab Results Last 24 Hours: Laboratory Results - last 24 hr 11/02/19 11/03/19 11/03/19 Range/Units 09:16 05:34 05:34 WBC (4.23-9.07) K/mm3 RBC (4.63-6.08) M/mm3 Hgb (13.7-17.5) gm/dl Hct (40.1-51.0) % MCV (79.0-92.2) fl MCH (25.7-32.2) pg MCHC (32.2-35.5) g/dl RDW Std Deviation (35.1-43.9) fL Plt Count (163-337) K/mm3 MPV (9.4-12.3) fl Neut % (Auto) (34.0-67.9) % Lymph % (Auto) (21.8-53.1) % Cotton % (Auto) (5.3-12.2) % Eos % (Auto) (0.8-7.0) Baso % (Auto) (0.1-1.2) % Neut # (Auto) (1.78-5.38) K/mm3 Lymph # (Auto) (1.32-3.57) K/mm3 Cotton # (Auto) (0.30-0.82) K/mm3 Eos # (Auto) (0.04-0.54) K/mm3 Baso # (Auto) (0.01-0.08) K/mm3 Manual Slide Review PT 13.1 H (9.7-12.0) SECONDS INR 1.22 D-Dimer, Quantitative > 35.20 H (0.19-0.50) mg/L Puncture Site [place]ain ABG pH 7.27 L (7.35-7.45) ABG pCO2 40.3 (35.0-45.0) mmHg ABG pO2 77.0 L (80.0-100.0) mmHg ABG HCO3 17.8 L (22.0-26.0) meq/L ABG O2 Saturation 93.3 L (96.0-97.0) % ABG Base Excess -8.1 L (-2-2.0) A-a Gradient 159 mmHg O2 Delivery Device Ventilator FiO2 40.00 (21.00-100.00) % Tidal Volume 440.0 cc PEEP 14.0 cmH20 Sodium (136-145) mEq/L Potassium (3.5-5.1) mEq/L Chloride (98-107) mEq/L Carbon Dioxide (21-32) mEq/L Anion Gap (5-15) BUN (7-18) mg/dL Creatinine (0.7-1.3) mg/dL Est Cr Clr Drug Dosing mL/min Estimated GFR (MDRD) (>60) mL/min BUN/Creatinine Ratio (14-18) Glucose (83-115) mg/dL Calcium (8.5-10.1) mg/dL Phosphorus (2.6-4.7) mg/dL Magnesium (1.8-2.4) mg/dl Ferritin (26-388) ng/ml Total Bilirubin (0.2-1.0) mg/dL AST (15-37) U/L ALT (16-63) U/L Alkaline Phosphatase (46-116) U/L Lactate Dehydrogenase (85-227) U/L Troponin I (0.00-0.056) ng/mL C-Reactive Protein (<1.0) mg/dL Total Protein (6.4-8.2) g/dl Albumin (3.4-5.0) g/dl Globulin gm/dL Albumin/Globulin Ratio (1-2) Triglycerides (<150) mg/dL Random Vancomycin 20.4 ug/mL 11/03/19 11/03/19 11/03/19 Range/Units 05:34 05:34 05:34 WBC 19.01 H (4.23-9.07) K/mm3 RBC 3.62 L (4.63-6.08) M/mm3 Hgb 10.4 L (13.7-17.5) gm/dl Hct 33.7 L (40.1-51.0) % MCV 93.1 H (79.0-92.2) fl MCH 28.7 (25.7-32.2) pg MCHC 30.9 L (32.2-35.5) g/dl RDW Std Deviation 50.6 H (35.1-43.9) fL Plt Count 160 L (163-337) K/mm3 MPV 9.7 (9.4-12.3) fl Neut % (Auto) 70.6 H (34.0-67.9) % Lymph % (Auto) 6.6 L (21.8-53.1) % Cotton % (Auto) 11.0 (5.3-12.2) % Eos % (Auto) 0 L (0.8-7.0) Baso % (Auto) 0.6 (0.1-1.2) % Neut # (Auto) 13.42 H (1.78-5.38) K/mm3 Lymph # (Auto) 1.26 L (1.32-3.57) K/mm3 Cotton # (Auto) 2.09 H (0.30-0.82) K/mm3 Eos # (Auto) 0.00 L (0.04-0.54) K/mm3 Baso # (Auto) 0.11 H (0.01-0.08) K/mm3 Manual Slide Review Abnormal smear PT (9.7-12.0) SECONDS INR D-Dimer, Quantitative (0.19-0.50) mg/L Puncture Site ABG pH (7.35-7.45) ABG pCO2 (35.0-45.0) mmHg ABG pO2 (80.0-100.0) mmHg ABG HCO3 (22.0-26.0) meq/L ABG O2 Saturation (96.0-97.0) % ABG Base Excess (-2-2.0) A-a Gradient mmHg O2 Delivery Device FiO2 (21.00-100.00) % Tidal Volume cc PEEP cmH20 Sodium 146 H (136-145) mEq/L Potassium 5.5 H (3.5-5.1) mEq/L Chloride 112 H (98-107) mEq/L Carbon Dioxide 20 L (21-32) mEq/L Anion Gap 19.5 H (5-15) BUN 160 H D (7-18) mg/dL Creatinine 7.9 H (0.7-1.3) mg/dL Est Cr Clr Drug Dosing 8.34 mL/min Estimated GFR (MDRD) 7 (>60) mL/min BUN/Creatinine Ratio 20.3 H (14-18) Glucose 154 H (83-115) mg/dL Calcium 7.1 L (8.5-10.1) mg/dL Phosphorus 10.0 H (2.6-4.7) mg/dL Magnesium 2.6 H (1.8-2.4) mg/dl Ferritin 3070 H (26-388) ng/ml Total Bilirubin 0.3 (0.2-1.0) mg/dL AST 38 H (15-37) U/L ALT 49 (16-63) U/L Alkaline Phosphatase 55 (46-116) U/L Lactate Dehydrogenase 298 H (85-227) U/L Troponin I < 0.017 (0.00-0.056) ng/mL C-Reactive Protein 3.5 H* (<1.0) mg/dL Total Protein 5.7 L (6.4-8.2) g/dl Albumin 1.8 L (3.4-5.0) g/dl Globulin 3.9 gm/dL Albumin/Globulin Ratio 0.5 L (1-2) Triglycerides 169 H (<150) mg/dL Random Vancomycin ug/mL 11/03/19 11/03/19 Range/Units 13:31 14:05 WBC (4.23-9.07) K/mm3 RBC (4.63-6.08) M/mm3 Hgb (13.7-17.5) gm/dl Hct (40.1-51.0) % MCV (79.0-92.2) fl MCH (25.7-32.2) pg MCHC (32.2-35.5) g/dl RDW Std Deviation (35.1-43.9) fL Plt Count (163-337) K/mm3 MPV (9.4-12.3) fl Neut % (Auto) (34.0-67.9) % Lymph % (Auto) (21.8-53.1) % Cotton % (Auto) (5.3-12.2) % Eos % (Auto) (0.8-7.0) Baso % (Auto) (0.1-1.2) % Neut # (Auto) (1.78-5.38) K/mm3 Lymph # (Auto) (1.32-3.57) K/mm3 Cotton # (Auto) (0.30-0.82) K/mm3 Eos # (Auto) (0.04-0.54) K/mm3 Baso # (Auto) (0.01-0.08) K/mm3 Manual Slide Review PT (9.7-12.0) SECONDS INR D-Dimer, Quantitative (0.19-0.50) mg/L Puncture Site A-line ABG pH 7.21 L (7.35-7.45) ABG pCO2 44.4 (35.0-45.0) mmHg ABG pO2 86.0 (80.0-100.0) mmHg ABG HCO3 17.9 L (22.0-26.0) meq/L ABG O2 Saturation 94.0 L (96.0-97.0) % ABG Base Excess -10.0 L (-2-2.0) A-a Gradient mmHg O2 Delivery Device Ventilator FiO2 35.00 (21.00-100.00) % Tidal Volume 365.0 cc PEEP 13.0 cmH20 Sodium (136-145) mEq/L Potassium (3.5-5.1) mEq/L Chloride (98-107) mEq/L Carbon Dioxide (21-32) mEq/L Anion Gap (5-15) BUN (7-18) mg/dL Creatinine (0.7-1.3) mg/dL Est Cr Clr Drug Dosing mL/min Estimated GFR (MDRD) (>60) mL/min BUN/Creatinine Ratio (14-18) Glucose (83-115) mg/dL Calcium (8.5-10.1) mg/dL Phosphorus (2.6-4.7) mg/dL Magnesium (1.8-2.4) mg/dl Ferritin (26-388) ng/ml Total Bilirubin (0.2-1.0) mg/dL AST (15-37) U/L ALT (16-63) U/L Alkaline Phosphatase (46-116) U/L Lactate Dehydrogenase (85-227) U/L Troponin I (0.00-0.056) ng/mL C-Reactive Protein (<1.0) mg/dL Total Protein (6.4-8.2) g/dl Albumin (3.4-5.0) g/dl Globulin gm/dL Albumin/Globulin Ratio (1-2) Triglycerides (<150) mg/dL Random Vancomycin 19.2 ug/mL [place]angel Results Last 24 Hours: Microbiology 11/01/19 16:30 Gram Stain - Final Sputum - Expectorated Sputum Culture - Final Enterobacter Aerogenes 11/01/19 10:15 Aerobic Blood Culture - Preliminary Blood - Venous - Lab Draw NO GROWTH AFTER 2 DAYS Anaerobic Blood Culture - Preliminary NO GROWTH AFTER 2 DAYS 11/01/19 10:00 Aerobic Blood Culture - Preliminary Blood - Venous NO GROWTH AFTER 2 DAYS Anaerobic Blood Culture - Preliminary NO GROWTH AFTER 2 DAYS 10/26/19 14:35 Aerobic Blood Culture - Final Blood - Venous - Lab Draw NO GROWTH AFTER 7 DAYS Anaerobic Blood Culture - Final NO GROWTH AFTER 7 DAYS 10/26/19 14:25 Aerobic Blood Culture - Final Blood - Venous Staphylococcus Epidermidis Anaerobic Blood Culture - Final NO GROWTH AFTER 7 DAYS Med Orders - Current: Current Medications Acetaminophen (Tylenol) 650 mg RECTAL Q6H PRN PRN Reason: Fever Last Admin: 10/26/19 08:05 Dose: 650 mg Calcium Acetate (Phoslo) 667 mg PO Q4H LG Last Admin: 11/03/19 15:23 Dose: 667 mg Furosemide (Lasix) 100 mg IVPUSH Q12H LG Last Admin: 11/03/19 09:01 Dose: 100 mg Hydralazine HCl (Apresoline) 20 mg IVPUSH Q2H PRN PRN Reason: Hypertension Last Admin: 10/31/19 14:25 Dose: 20 mg Sodium Chloride (Normal Saline) 250 mls @ 10 mls/hr IV ASDIRECTED LG Midazolam HCl 100 mg/ Sodium (Chloride) 100 mls @ 0.5 mls/hr IV ASDIRECTED LG Last Admin: 11/03/19 15:20 Dose: 10 mls/hr Fentanyl 2,500 mcg/ Sodium (Chloride) 250 mls @ 1 mls/hr IV TITRATE LG; Protocol Last Admin: 11/03/19 06:00 Dose: 15 mls/hr, 15 mls/hr Vecuronium [place] 10 mg/ (Sodium Chloride) 100 mls @ 82.49 mls/hr IV TITRATE LG; Protocol Last Titration: 11/03/19 16:02 Dose: Infused Norepinephrine Bitartrate 4 mg (/ Dextrose/Water) 250 mls @ 7.5 mls/hr IV TITRATE LG; Protocol Last Titration: 11/02/19 18:30 Dose: 0 mcg/min, 0 mls/hr Azithromycin 500 mg/ Sodium (Chloride) 250 mls @ 250 mls/hr IV Q24H LG Last Admin: 11/03/19 12:35 Dose: 250 mls/hr Cefepime HCl 2 gm/ Premix 50 mls @ 100 mls/hr IV Q24H LG Last Admin: 11/03/19 11:33 Dose: 100 mls/hr Methylprednisolone Sodium Succinate (Solu-Medrol) 60 mg IVPUSH Q8H LG Last Admin: 11/03/19 14:10 Dose: 60 mg Metoclopramide HCl (Reglan) 10 mg IVPUSH Q8H LG Last Admin: 11/03/19 14:11 Dose: 10 mg Pantoprazole Sodium (Protonix Iv) 40 mg IVPUSH ACBREAKFAST PENDING SALE TO [facility] Last Admin: 11/03/19 05:43 Dose: 40 mg Vancomycin HCl (Pharmacy To Dose - Vancomycin) 1 dose .XX ASDIRECTED PRN PRN Reason: RX TO DOSE VANCO Discontinued Medications Atropine Sulfate (Atropine 0.1 Mg/Ml) 0.5 mg IVPUSH Q3M PRN PRN Reason: Bradycardia Last Admin: 10/28/19 22:13 Dose: 0.5 mg Calcium Acetate (Phoslo) 667 mg NGTUBE TIDMEALS PENDING SALE TO [facility] Last Admin: 10/30/19 17:21 Dose: 667 mg Enoxaparin Sodium (Lovenox) 30 mg SUBCUT DAILY PENDING SALE TO [facility] Etomidate (Amidate) 40 mg IVPUSH .STK-MED ONE Stop: 10/25/19 16:01 Furosemide (Lasix) 100 mg IVPUSH NOW ONE Stop: 10/27/19 13:56 Last Admin: 10/27/19 13:52 Dose: 100 mg Furosemide (Lasix) 60 mg IVPUSH BID PENDING SALE TO [facility] Last Admin: 10/31/19 09:53 Dose: 60 mg Furosemide (Lasix) 100 mg IVPUSH Q12H PENDING SALE TO [facility] Stop: 10/31/19 16:28 Last Admin: 10/31/19 19:54 Dose: Not Given Hydralazine HCl (Apresoline) 10 mg IVPUSH Q2H PRN PRN Reason: Hypertension Hydralazine HCl (Apresoline) Confirm Administered Dose 20 mg .ROUTE .STK-MED ONE Stop: 10/31/19 14:09 Last Admin: 10/31/19 14:25 Dose: Not Given Fentanyl 2,500 mcg/ Sodium (Chloride) 250 mls @ 13 mls/hr IV ASDIRECTED ONE Stop: 10/26/19 11:28 Last Admin: 10/26/19 07:42 Dose: 20 mls/hr Midazolam HCl 50 mg/ Sodium (Chloride) 50 mls @ 3 mls/hr IV ASDIRECTED ONE Stop: 10/26/19 08:54 Last Admin: 10/26/19 00:40 Dose: 10 mls/hr Vecuronium [place] 10 mg/ (Sodium Chloride) 100 mls @ 1 mls/hr IV ASDIRECTED ONE Stop: 10/29/19 20:14 Last Admin: 10/26/19 07:43 Dose: 8 mls/hr Lactated Ringer's (Ringers, Lactated) 1,000 mls @ 100 mls/hr IV ASDIRECTED LG Last Infusion: 10/27/19 13:46 Dose: Infused Levofloxacin/Dextrose 750 mg/ (Premix) 150 mls @ 100 mls/hr IV Q24H LG Ceftriaxone Sodium 2 gm/ (Sodium Chloride) 100 mls @ 200 mls/hr IV Q24H LG Last Admin: 11/01/19 02:10 Dose: 200 mls/hr Midazolam HCl 50 mg/ Sodium (Chloride) 50 mls @ 0.5 mls/hr IV TITRATE LG; Protocol Stop: 10/26/19 17:00 Last Admin: 10/26/19 11:46 Dose: 10 mg/hr, 10 mls/hr Propofol (Diprivan 100 Ml) 100 mls @ 3.771 mls/hr IV TITRATE LG; Protocol Sodium Chloride (Normal Saline) Confirm Administered Dose 500 mls @ as directed .ROUTE .STK-MED ONE Stop: 10/26/19 13:46 Last Admin: 10/26/19 17:14 Dose: 10 mls/hr Midazolam HCl 100 mg/ Sodium (Chloride) 100 mls @ 0.5 mls/hr IV TITRATE LG Propofol (Diprivan 100 Ml) 100 mls @ 3.771 mls/hr IV TITRATE LG; Protocol Last Admin: 10/31/19 05:30 Dose: 10 mcg/kg/min, 7.541 mls/hr Fentanyl 2,500 mcg/ Sodium (Chloride) 250 mls @ 1 mls/hr IV TITRATE LG; Protocol Stop: 10/28/19 17:00 Last Titration: 10/28/19 13:57 Dose: 22 mls/hr, 22 mls/hr Norepinephrine Bitartrate 4 mg (/ Dextrose/Water) 250 mls @ 7.5 mls/hr IV TITRATE LG; Protocol Stop: 10/28/19 12:00 Last Titration: 10/28/19 02:20 Dose: 12 mcg/min, 45 mls/hr Lactated Ringer's (Ringers, Lactated) 1,000 mls @ 50 mls/hr IV ASDIRECTED LG Last Admin: 10/29/19 04:54 Dose: 50 mls/hr Norepinephrine Bitartrate 16 (mg/ Dextrose/Water) 250 mls @ 11.25 mls/hr IV TITRATE LG; Protocol Last Titration: 10/28/19 22:17 Dose: 12 mcg/hr, 0.18 mls/hr Norepinephrine Bitartrate 16 (mg/ Dextrose/Water) 250 mls @ 9.37 mls/hr IV TITRATE LG; Protocol Norepinephrine Bitartrate 16 (mg/ Dextrose/Water) 250 mls @ 9.37 mls/hr IV TITRATE LG; Protocol Last Titration: 10/31/19 01:55 Dose: 0 mcg/min, 0 mls/hr Furosemide 100 mg/ Sodium (Chloride) 110 mls @ 220 mls/hr IV Q12H LG Last Admin: 10/31/19 20:13 Dose: 220 mls/hr Furosemide 100 mg/ Sodium (Chloride) 100 mls @ 200 mls/hr IV Q12H LG Last Admin: 11/02/19 09:17 Dose: 200 mls/hr Vancomycin HCl 1 gm/Vancomycin HCl 500 mg/ Sodium Chloride 250 mls @ 125 mls/ hr IV ONETIME ONE Stop: 11/01/19 14:29 Last Admin: 11/01/19 13:22 Dose: 125 mls/hr Vancomycin HCl 1 gm/Vancomycin HCl 500 mg/ Sodium Chloride 250 mls @ 125 mls/ hr IV ONETIME ONE Stop: 11/02/19 10:59 Last Admin: 11/02/19 09:17 Dose: 125 mls/hr Methylprednisolone Sodium Succinate (Solu-Medrol) 125 mg IVPUSH Q8H LG Last Admin: 11/01/19 06:27 Dose: 125 mg Metoclopramide HCl (Reglan) 5 mg IVPUSH Q8H LG Last Admin: 10/31/19 14:27 Dose: Not Given Midazolam HCl (Versed 1 Mg/Ml) 25 mg .ROUTE .STK-MED ONE Stop: 10/25/19 16:01 Hydroxychloroquine Oral Susp 25mg/Ml Cmpd 0 each PEGTUBE Q12H LG Stop: 10/27/19 05:01 Last Admin: 10/26/19 17:16 Dose: 16 each Hydroxychloroquine Oral Susp 25mg/Ml Cmpd 0 each PO DAILY@0500 LG Stop: 10/31/19 05:01 Last Admin: 10/31/19 05:29 Dose: 16 each Hydroxychloroquine Oral Susp 25mg/Ml Cmpd 0 each PO Q12H LG Stop: 10/27/19 05:01 Last Admin: 10/27/19 05:37 Dose: 16 each Norepinephrine Bitartrate (Levophed) Confirm Administered Dose 4 mg .ROUTE .STK- MED ONE Stop: 10/28/19 11:01 Last Admin: 10/28/19 11:51 Dose: Not Given Succinylcholine Chloride (Quelicin) 200 mg .ROUTE .STK-MED ONE Stop: 10/25/19 16:01 - Exam Quality Assessment: Central Line/PICC, Urine Catheter, DVT Prophylaxis General: Sedated HEENT: Pupils Equal, Mucous Membr. Moist/[place] Neck: +2 Carotid Pulse wo Bruit Lungs: Crackles Cardiovascular: Regular Rate, Regular Rhythm GI/Abdominal Exam: Normal Bowel Sounds, Soft Extremities: Pedal Edema Skin: Warm, Dry, Intact Sepsis Event Note - Evaluation Sepsis Screening Result: No Definite Risk - Focused Exam Vital Signs: Vital Signs Temp Temp Resp BP Pulse Ox Pulse Ox 11/03/19 17:00 97.0 F 34 H 123/54 L 93 L 11/03/19 16:00 96.8 F L 34 H 124/55 L 93 L 93 L 11/03/19 15:00 97.3 F 34 H 123/56 L 94 L 11/03/19 14:00 97.5 F 34 H 127/58 L 95 11/03/19 13:40 97.5 F 34 H 95 11/03/19 13:30 97.7 F 34 H 95 11/03/19 13:22 94 L 11/03/19 13:20 97.7 F 34 H 94 L 11/03/19 13:10 97.7 F 34 H 94 L 11/03/19 13:00 97.5 F 34 H 121/57 L 95 11/03/19 12:50 97.7 F 34 H 93 L 11/03/19 12:40 97.7 F 34 H 94 L 11/03/19 12:30 97.7 F 34 H 92 L 11/03/19 12:20 97.9 F 34 H 92 L 11/03/19 12:10 97.9 F 34 H 93 L 11/03/19 12:00 97.9 F 34 H 125/55 L 92 L 11/03/19 11:50 97.9 F 34 H 94 L 11/03/19 11:46 94 L 11/03/19 11:40 97.9 F 34 H 94 L 11/03/19 11:30 97.9 F 34 H 94 L 11/03/19 11:20 97.9 F 34 H 94 L 11/03/19 11:10 97.9 F 34 H 94 L 11/03/19 11:00 97.9 F 34 H 125/56 L 94 L 11/03/19 10:50 97.9 F 34 H 94 L 11/03/19 10:40 97.9 F 34 H 94 L 11/03/19 10:30 97.9 F 34 H 94 L 11/03/19 10:20 97.9 F 34 H 94 L 11/03/19 10:00 97.7 F 34 H 124/56 L 94 L 11/03/19 09:50 97.7 F 34 H 94 L 11/03/19 09:40 97.7 F 34 H 94 L 11/03/19 09:30 97.7 F 34 H 93 L 11/03/19 09:20 97.7 F 34 H 93 L 11/03/19 09:12 94 L 11/03/19 09:00 97.5 F 34 H 92/80 93 L 11/03/19 08:50 97.5 F 34 H 94 L 11/03/19 08:40 97.5 F 34 H 94 L 11/03/19 08:30 97.5 F 34 H 94 L 11/03/19 08:20 97.5 F 34 H 94 L 11/03/19 08:00 97.3 F 34 H 102/86 95 11/03/19 07:50 97.3 F 34 H 94 L 11/03/19 07:44 94 L 11/03/19 07:40 97.3 F 34 H 95 11/03/19 07:30 97.3 F 34 H 95 11/03/19 07:20 97.2 F 34 H 95 11/03/19 07:10 97.2 F 34 H 95 11/03/19 07:00 97.2 F 34 H 121/57 L 95 11/03/19 06:02 95 11/03/19 06:00 96.8 F L 34 H 123/57 L 95 Date Exam was Performed: 11/03/19 Time Exam was Performed: 17:38 - Problem List Review Problem List Initiated/Reviewed/Updated: Yes - My Orders Last 24 Hours: My Active Orders 11/03/19 17:37 Code Status [Resuscitation Status] Routine 11/04/19 05:11 VANCOMYCIN RANDOM [CHEM] AM - Plan Plan:: Day of Admission - ED for fever, nonproductive cough, and watery diarrhea on 10/15/2019 + decreased appetite for about 1 week. - He chronically has shortness of breath and dyspnea on exertion, but now presents because it got much worse in the last day or two - In the ED, the patient is found to be hemodynamically stable, but with a fever of 102.6 degrees, saturating around 69 to 70% on room air, up to 87-88 sent on a nonrebreather mask. - Respiratory failure in ICU and intubated - Started on Rocephin DAY 1 - COVID19 reported positive - Started on Plaquenil DAY 2 - Worsening kidney function - Phosphate continues to increase, started on phosphate binders, calcium acetate - Dietary recommending adjusting diet due to protein load - Urinary output improved mildly with Lasix IV DAY 3 - Oxygenation continued to worsen - Bradycardia with minimal response to atropine - Changed code status to DNR DAY 4 - Still making urine - Respiratory status without improvement - Bradycardia however BP stable DAY5 - Continues to be bradycardic - Intermittently hypertensive - Completes Rocephin and Plaquenil - Started on Solumedrol DAY 6 - pH closer to normal, 7.26 - Labs continue to worsen - Triglycerides trending up - Significantly + balance DAY 7 - Hypothermia episode + worsening infiltrates --> healthcare associated pneumonia - Worsening kidney failure, not meeting [employer]ENT criteria yet --> still making urine - Started on triple antibiotic coverage - Changed tube feeds to Vital AF due to high residuals, started on Reglan DAY 8 - Sputum growing gram negative rods - Elevated procalcitonin - Still making urine - Balance significantly positive still - Adjusting vent setting according to plateau pressure and pH DAY 9 - BUN 160, Cr 7.9, K+ 5.5 - Discussed case with Dr. Shelbi Leon MD, Credit Compliance Officer [facility]. Dr. Leon called his Birgit to discuss his care. It is her feeling that he has no reasonable chance of recovery and transfer to [place] for renal replacement therapy would not benefit him in the jail. Dr. Leon , his , and I were then placed on a conference call and Birgit decided that Feliciano would want to be placed on comfort measures at this time. I discussed specifically with her extubation and she stated that she would want him extubated so he does not continue to suffer. PLAN: Per wishes of the , voicing his wishes, we will wean off his neuromuscular micheal and sedation. We will then extubate him and keep him comfortable with morphine and Ativan. Other medications as needed. We will stop aggressive care including antibiotics and steroids. Maximum isolation precautions
[2019-11-03] MEDS ORDERED: Morphine 2 MG/ML Syringe IVPUSH PRN (17:46)
--- NOTE | 2019-11-04 12:20 | PCM.DCSUM1 ---
Discharge Summary - Hospital Course HPI Initial Comments: 74 year old male with prob. covid disease and resp insuff abg reviewed and elective intubation done sec to risk factors and risk assessment . reviewed with family by e.r. physician kindly . patient on 100 with severe hypoxia and A-a gradient c/w ards. current settings reviewed and peep in place. emperic antibiotic untill covid confirmed renal insuff / mod and dosage adjustment done . copd : intubated for severe hypoxia and tiring out. risk of form multiorgan failure considered very high . Diagnosis: Stroke: No - Discharge Data Discharge Date: 11/04/19 Discharge Disposition: 20 Preliminary Cause of *Q: Multi System Organ Failure Condition: - Referral to Home Health Primary Care Physician: Sole Lu NP - Discharge Diagnosis/Problem(s) (1) ARDS (adult respiratory distress syndrome) SNOMED Code(s): 71070719, 25120069 ICD Code: J80 - ACUTE RESPIRATORY DISTRESS SYNDROME Status: Acute Current Visit: Yes (2) COPD (chronic obstructive pulmonary disease) SNOMED Code(s): 61083704 ICD Code: J44.9 - CHRONIC OBSTRUCTIVE PULMONARY DISEASE, UNSPECIFIED Status : Acute Current Visit: Yes (3) COVID-19 SNOMED Code(s): 534772106 ICD Code: U07.1 - COVID-19 Status: Acute Current Visit: Yes (4) End stage chronic kidney disease SNOMED Code(s): 08158650, 232418683 ICD Code: N18.6 - END STAGE RENAL DISEASE Status: Acute Current Visit: Yes (5) Metabolic acidosis SNOMED Code(s): 28901958 ICD Code: E87.2 - ACIDOSIS Status: Acute Current Visit: Yes (6) Acute renal failure SNOMED Code(s): 59131864 ICD Code: N17.9 - ACUTE KIDNEY FAILURE, UNSPECIFIED Status: Acute Current Visit: No Qualifiers: Acute renal failure type: unspecified Qualified Code(s): N17.9 - Acute kidney failure, unspecified - Patient Summary/Data Consults: Consultations 10/25/19 20:50 Consult to Respiratory Therapy [Respiratory Care Assess and Treatment] [CONS] Routine 10/26/19 10:08 PT Evaluation and Treatment [CONS] Routine Hospital Course: Day of Admission - ED for fever, nonproductive cough, and watery diarrhea on 10/15/2019 + decreased appetite for about 1 week. - He chronically has shortness of breath and dyspnea on exertion, but now presents because it got much worse in the last day or two - In the ED, the patient is found to be hemodynamically stable, but with a fever of 102.6 degrees, saturating around 69 to 70% on room air, up to 87-88 sent on a nonrebreather mask. - Respiratory failure in ICU and intubated - Started on Rocephin DAY 1 - COVID19 reported positive - Started on Plaquenil DAY 2 - Worsening kidney function - Phosphate continues to increase, started on phosphate binders, calcium acetate - Dietary recommending adjusting diet due to protein load - Urinary output improved mildly with Lasix IV DAY 3 - Oxygenation continued to worsen - Bradycardia with minimal response to atropine - Changed code status to DNR DAY 4 - Still making urine - Respiratory status without improvement - Bradycardia however BP stable DAY5 - Continues to be bradycardic - Intermittently hypertensive - Completes Rocephin and Plaquenil - Started on Solumedrol DAY 6 - pH closer to normal, 7.26 - Labs continue to worsen - Triglycerides trending up - Significantly + balance DAY 7 - Hypothermia episode + worsening infiltrates --> healthcare associated pneumonia - Worsening kidney failure, 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 Shelbi Leon MD, [employer]ely [employer]oted Vehicle [employer] [facility]. Dr. Leon called his Birgit to discuss his care. It is her feeling that he has no reasonable chance of recovery and transfer to [place] for renal replacement therapy would not benefit him in the prison. Dr. Leon , his , and I were then placed on a conference call and Birgit decided that Feliciano would want to be placed on comfort measures at this time. I discussed specifically with her extubation and she stated that she would want him extubated so he does not continue to suffer. DAY 10 Yesterday we stopped his neuromuscular blockers and sedation. I want to allow adequate time for complete neuromuscular blockade to be reversed, so there was no chance that he would be alert and paralyzed. This morning we switched him to pressure support ventilation and he did have some spontaneous breathing. Extubation was performed and patient was unable to maintain oxygenation. Oxygen was used for comfort and patient peacefully at 1150 hrs. was confirmed with auscultation, visually, and with asystole on telemetry. His was contacted shortly afterward. His body will be released to [facility]. Cause of was multisystem failure brought about by COVID-19. - Discharge Plan *PRESCRIPTION DRUG MONITORING PROGRAM REVIEWED*: Not Applicable *COPY OF PRESCRIPTION DRUG MONITORING REPORT IN PATIENT RACHNA: Not Applicable Home Medications: Home Meds Allopurinol [Zyloprim] 200 mg PO BEDTIME 12/14/14 [History] Doxazosin [Cardura] 8 mg PO DAILY 12/14/14 [History] amLODIPine Besylate [Amlodipine Besylate] 10 mg PO DAILY 12/14/14 [History] Budesonide/Formoterol [Symbicort 80-4.5 MCG] 2 puff INH ASDIRECTED 08/14/15 [ History] Rosuvastatin [Crestor] 10 mg PO DAILY 04/05/17 [History] Cholecalciferol (Vitamin D3) [Vitamin D3] 10,000 unit PO DAILY 07/14/18 [History ] Albuterol Sulfate [Proair Hfa] 2 puff IH Q4HR PRN 08/10/19 [History] Fluticasone Propionate 1 spray NS DAILY 08/10/19 [History] Lisinopril [Zestril] 80 mg PO DAILY 08/10/19 [History] Patient Handouts: Sepsis, Diagnosis, Adult, Coronavirus Information 10/11/19 Forms: ED Department Discharge Referrals: Sole Lu NP [Primary Care Provider] - Av Goins MD [Ordering Only Provider] - Maria T Ferguson MD [Ordering Only Provider] - Connor Garcia MD [Ordering Only Provider] - - Discharge Summary/Plan Comment DC Time >30 min.: Yes Discharge Summary/Plan Comment: Multisystem failure caused by COVID-19. Body was released to [facility] - General Info Date of Service: 11/04/19 Admission Dx/Problem (Free Text: Admission Diagnosis/Problem Admission Diagnosis/Problem Respiratory distress/probable covid 19 - Patient Data Vitals - Most Recent: Last Vital Signs Temp 99.1 F 11/04/19 09:30 Pulse 49 L 11/01/19 06:00 Resp 41 H 11/04/19 10:50 BP 118/58 L 11/04/19 10:01 Pulse Ox 58 L 11/04/19 10:50 Weight - Most Recent: 298 lb 12.8 oz I&O - Last 24 hours: Intake & Output 11/03/19 11/04/19 11/04/19 22:59 06:59 14:59 Intake Total 1255 406 Output Total 510 490 300 Balance 745 -490 106 Lab Results - Last 24 hrs: Laboratory Results - last 24 hr 11/03/19 11/03/19 Range/Units 13:31 14:05 Puncture Site A-line ABG pH 7.21 L (7.35-7.45) ABG pCO2 44.4 (35.0-45.0) mmHg ABG pO2 86.0 (80.0-100.0) mmHg ABG HCO3 17.9 L (22.0-26.0) meq/L ABG O2 Saturation 94.0 L (96.0-97.0) % ABG Base Excess -10.0 L (-2-2.0) O2 Delivery Device Ventilator FiO2 35.00 (21.00-100.00) % Tidal Volume 365.0 cc PEEP 13.0 cmH20 Random Vancomycin 19.2 ug/mL LOGAN Results - Last 24 hrs: Microbiology 11/01/19 10:15 Aerobic Blood Culture - Preliminary Blood - Venous - Lab Draw NO GROWTH AFTER 3 DAYS Anaerobic Blood Culture - Preliminary NO GROWTH AFTER 3 DAYS 11/01/19 10:00 Aerobic Blood Culture - Preliminary Blood - Venous NO GROWTH AFTER 3 DAYS Anaerobic Blood Culture - Preliminary NO GROWTH AFTER 3 DAYS 11/01/19 16:30 Gram Stain - Final Sputum - Expectorated Sputum Culture - Final Enterobacter Aerogenes Med Orders - Current: Current Medications Acetaminophen (Tylenol) 650 mg RECTAL Q6H PRN PRN Reason: Fever Last Admin: 10/26/19 08:05 Dose: 650 mg Lorazepam (Ativan) 1 mg IVPUSH Q1H PRN PRN Reason: Anxiety Morphine Sulfate (Morphine) 2 mg IVPUSH Q1H PRN PRN Reason: Shortness of Breath Discontinued Medications Atropine Sulfate (Atropine 0.1 Mg/Ml) 0.5 mg IVPUSH Q3M PRN PRN Reason: Bradycardia Last Admin: 10/28/19 22:13 Dose: 0.5 mg Calcium Acetate (Phoslo) 667 mg NGTUBE TIDMEALS [facility] Last Admin: 10/30/19 17:21 Dose: 667 mg Calcium Acetate (Phoslo) 667 mg PO Q4H [facility] Last Admin: 11/03/19 19:54 Dose: Not Given Enoxaparin Sodium (Lovenox) 30 mg SUBCUT DAILY [facility] Etomidate (Amidate) 40 mg IVPUSH .STK-MED ONE Stop: 10/25/19 16:01 Furosemide (Lasix) 100 mg IVPUSH NOW ONE Stop: 10/27/19 13:56 Last Admin: 10/27/19 13:52 Dose: 100 mg Furosemide (Lasix) 60 mg IVPUSH BID [facility] Last Admin: 10/31/19 09:53 Dose: 60 mg Furosemide (Lasix) 100 mg IVPUSH Q12H [facility] Stop: 10/31/19 16:28 Last Admin: 10/31/19 19:54 Dose: Not Given Furosemide (Lasix) 100 mg IVPUSH Q12H [facility] Last Admin: 11/03/19 09:01 Dose: 100 mg Hydralazine HCl (Apresoline) 10 mg IVPUSH Q2H PRN PRN Reason: Hypertension Hydralazine HCl (Apresoline) Confirm Administered Dose 20 mg .ROUTE .STK-MED ONE Stop: 10/31/19 14:09 Last Admin: 10/31/19 14:25 Dose: Not Given Hydralazine HCl (Apresoline) 20 mg IVPUSH Q2H PRN PRN Reason: Hypertension Last Admin: 10/31/19 14:25 Dose: 20 mg Fentanyl 2,500 mcg/ Sodium (Chloride) 250 mls @ 13 mls/hr IV ASDIRECTED ONE Stop: 10/26/19 11:28 Last Admin: 10/26/19 07:42 Dose: 20 mls/hr Midazolam HCl 50 mg/ Sodium (Chloride) 50 mls @ 3 mls/hr IV ASDIRECTED ONE Stop: 10/26/19 08:54 Last Admin: 10/26/19 00:40 Dose: 10 mls/hr Vecuronium Lowman 10 mg/ (Sodium Chloride) 100 mls @ 1 mls/hr IV ASDIRECTED ONE Stop: 10/29/19 20:14 Last Admin: 10/26/19 07:43 Dose: 8 mls/hr Lactated Ringer's (Ringers, Lactated) 1,000 mls @ 100 mls/hr IV ASDIRECTED LG Last Infusion: 10/27/19 13:46 Dose: Infused Levofloxacin/Dextrose 750 mg/ (Premix) 150 mls @ 100 mls/hr IV Q24H LG Ceftriaxone Sodium 2 gm/ (Sodium Chloride) 100 mls @ 200 mls/hr IV Q24H LG Last Admin: 11/01/19 02:10 Dose: 200 mls/hr Midazolam HCl 50 mg/ Sodium (Chloride) 50 mls @ 0.5 mls/hr IV TITRATE LG; Protocol Stop: 10/26/19 17:00 Last Admin: 10/26/19 11:46 Dose: 10 mg/hr, 10 mls/hr Sodium Chloride (Normal Saline) 250 mls @ 10 mls/hr IV ASDIRECTED LG Propofol (Diprivan 100 Ml) 100 mls @ 3.771 mls/hr IV TITRATE LG; Protocol Sodium Chloride (Normal Saline) Confirm Administered Dose 500 mls @ as directed .ROUTE .[facility]-MED ONE Stop: 10/26/19 13:46 Last Admin: 10/26/19 17:14 Dose: 10 mls/hr Midazolam HCl 100 mg/ Sodium (Chloride) 100 mls @ 0.5 mls/hr IV TITRATE LG Midazolam HCl 100 mg/ Sodium (Chloride) 100 mls @ 0.5 mls/hr IV ASDIRECTED LG Last Admin: 11/03/19 15:20 Dose: 10 mls/hr Propofol (Diprivan 100 Ml) 100 mls @ 3.771 mls/hr IV TITRATE LG; Protocol Last Admin: 10/31/19 05:30 Dose: 10 mcg/kg/min, 7.541 mls/hr Fentanyl 2,500 mcg/ Sodium (Chloride) 250 mls @ 1 mls/hr IV TITRATE LG; Protocol Stop: 10/28/19 17:00 Last Titration: 10/28/19 13:57 Dose: 22 mls/hr, 22 mls/hr Norepinephrine Bitartrate 4 mg (/ Dextrose/Water) 250 mls @ 7.5 mls/hr IV TITRATE LG; Protocol Stop: 10/28/19 12:00 Last Titration: 10/28/19 02:20 Dose: 12 mcg/min, 45 mls/hr Lactated Ringer's (Ringers, Lactated) 1,000 mls @ 50 mls/hr IV ASDIRECTED LG Last Admin: 10/29/19 04:54 Dose: 50 mls/hr Fentanyl 2,500 mcg/ Sodium (Chloride) 250 mls @ 1 mls/hr IV TITRATE LG; Protocol Last Admin: 11/03/19 06:00 Dose: 15 mls/hr, 15 mls/hr Norepinephrine Bitartrate 16 (mg/ Dextrose/Water) 250 mls @ 11.25 mls/hr IV TITRATE LG; Protocol Last Titration: 10/28/19 22:17 Dose: 12 mcg/hr, 0.18 mls/hr Norepinephrine Bitartrate 16 (mg/ Dextrose/Water) 250 mls @ 9.37 mls/hr IV TITRATE LG; Protocol Norepinephrine Bitartrate 16 (mg/ Dextrose/Water) 250 mls @ 9.37 mls/hr IV TITRATE LG; Protocol Last Titration: 10/31/19 01:55 Dose: 0 mcg/min, 0 mls/hr Vecuronium Lowman 10 mg/ (Sodium Chloride) 100 mls @ 82.49 mls/hr IV TITRATE LG; Protocol Last Titration: 11/03/19 16:02 Dose: Infused Furosemide 100 mg/ Sodium (Chloride) 110 mls @ 220 mls/hr IV Q12H LG Last Admin: 10/31/19 20:13 Dose: 220 mls/hr Furosemide 100 mg/ Sodium (Chloride) 100 mls @ 200 mls/hr IV Q12H LG Last Admin: 11/02/19 09:17 Dose: 200 mls/hr Norepinephrine Bitartrate 4 mg (/ Dextrose/Water) 250 mls @ 7.5 mls/hr IV TITRATE LG; Protocol Last Titration: 11/02/19 18:30 Dose: 0 mcg/min, 0 mls/hr Azithromycin 500 mg/ Sodium (Chloride) 250 mls @ 250 mls/hr IV Q24H LG Last Admin: 11/03/19 12:35 Dose: 250 mls/hr Cefepime HCl 2 gm/ Premix 50 mls @ 100 mls/hr IV Q24H [facility] Last Admin: 11/03/19 11:33 Dose: 100 mls/hr Vancomycin HCl 1 gm/Vancomycin HCl 500 mg/ Sodium Chloride 250 mls @ 125 mls/ hr IV ONETIME ONE Stop: 11/01/19 14:29 Last Admin: 11/01/19 13:22 Dose: 125 mls/hr Vancomycin HCl 1 gm/Vancomycin HCl 500 mg/ Sodium Chloride 250 mls @ 125 mls/ hr IV ONETIME ONE Stop: 11/02/19 10:59 Last Admin: 11/02/19 09:17 Dose: 125 mls/hr Methylprednisolone Sodium Succinate (Solu-Medrol) 125 mg IVPUSH Q8H [facility] Last Admin: 11/01/19 06:27 Dose: 125 mg Methylprednisolone Sodium Succinate (Solu-Medrol) 60 mg IVPUSH Q8H [facility] Last Admin: 11/03/19 14:10 Dose: 60 mg Metoclopramide HCl (Reglan) 5 mg IVPUSH Q8H [facility] Last Admin: 10/31/19 14:27 Dose: Not Given Metoclopramide HCl (Reglan) 10 mg IVPUSH Q8H [facility] Last Admin: 11/03/19 14:11 Dose: 10 mg Midazolam HCl (Versed 1 Mg/Ml) 25 mg .ROUTE .STK-MED ONE Stop: 10/25/19 16:01 Morphine Sulfate (Morphine) 2 mg IVPUSH Q1H PRN PRN Reason: Shortness of Breath Hydroxychloroquine Oral Susp 25mg/Ml Cmpd 0 each PEGTUBE Q12H [facility] Stop: 10/27/19 05:01 Last Admin: 10/26/19 17:16 Dose: 16 each Hydroxychloroquine Oral Susp 25mg/Ml Cmpd 0 each PO DAILY@0500 [facility] Stop: 10/31/19 05:01 Last Admin: 10/31/19 05:29 Dose: 16 each Hydroxychloroquine Oral Susp 25mg/Ml Cmpd 0 each PO Q12H [facility] Stop: 10/27/19 05:01 Last Admin: 10/27/19 05:37 Dose: 16 each Norepinephrine Bitartrate (Levophed) Confirm Administered Dose 4 mg .ROUTE .STK- MED ONE Stop: 10/28/19 11:01 Last Admin: 10/28/19 11:51 Dose: Not Given Pantoprazole Sodium (Protonix Iv) 40 mg IVPUSH ACBREAKFAST LG Last Admin: 11/03/19 05:43 Dose: 40 mg Succinylcholine Chloride (Quelicin) 200 mg .ROUTE .STK-MED ONE Stop: 10/25/19 16:01 Vancomycin HCl (Pharmacy To Dose - Vancomycin) 1 dose .XX ASDIRECTED PRN PRN Reason: RX TO DOSE VANCO Discharge Operative/Procedures - Procedures Performed Intubation Indication: Respiratory Failure
[2019-11-04 12:51] VITALS: BP 71/46
== END 2019-11-04 13:55 | disposition expired | DRG 870 ==
LOC: JD.ED 13:00 → JD.ICU 20:06
PROVIDERS: ADMIT Pediatrics; ATTEND Pediatrics
PROC: 5A1955Z Respiratory Ventilation, Greater than 96 Consecutive Hours (ICD-10-PCS; principal; 2019-10-25)
PROC: 8E0ZXY6 Isolation (ICD-10-PCS; 2019-10-25)
PROC: 4A133B1 Monitoring of Arterial Pressure, Peripheral, Percutaneous Approach (ICD-10-PCS; 2019-10-26)
PROC: 4A133J1 Monitoring of Arterial Pulse, Peripheral, Percutaneous Approach (ICD-10-PCS; 2019-10-26)
PROC: 02HV33Z Insertion of Infusion Device into Superior Vena Cava, Percutaneous Approach (ICD-10-PCS; 2019-10-26)
PROC: 3E033XZ Introduction of Vasopressor into Peripheral Vein, Percutaneous Approach (ICD-10-PCS; 2019-10-27)
DX: J80 Acute respiratory distress syndrome (principal); A41.9 Sepsis, unspecified organism; U07.1 COVID-19; R65.21 Severe sepsis with septic shock; I10 Essential (primary) hypertension; N18.6 End stage renal disease; J96.01 Acute respiratory failure with hypoxia; J12.9 Viral pneumonia, unspecified; E87.2 Acidosis; N17.9 Acute kidney failure, unspecified; E87.3 Alkalosis; N18.9 Chronic kidney disease, unspecified; Z68.41 Body mass index [BMI] 40.0-44.9, adult; Z66 Do not resuscitate; Z51.5 Encounter for palliative care; I46.9 Cardiac arrest, cause unspecified; T68.XXXA Hypothermia, initial encounter; E83.51 Hypocalcemia; H91.93 Unspecified hearing loss, bilateral; J44.9 Chronic obstructive pulmonary disease, unspecified; H54.7 Unspecified visual loss; E78.00 Pure hypercholesterolemia, unspecified; K21.9 Gastro-esophageal reflux disease without esophagitis; G47.33 Obstructive sleep apnea (adult) (pediatric); I12.9 Hypertensive chronic kidney disease with stage 1 through stage 4 chronic kidney disease, or unspecified chronic kidney disease; N40.0 Benign prostatic hyperplasia without lower urinary tract symptoms; M10.9 Gout, unspecified; M19.90 Unspecified osteoarthritis, unspecified site; E66.9 Obesity, unspecified; Z96.653 Presence of artificial knee joint, bilateral; Z88.6 Allergy status to analgesic agent; Z88.0 Allergy status to penicillin; Z88.5 Allergy status to narcotic agent; Z91.041 Radiographic dye allergy status; Z88.8 Allergy status to other drugs, medicaments and biological substances; Z99.81 Dependence on supplemental oxygen; Z86.010 Personal history of colon polyps; Z90.49 Acquired absence of other specified parts of digestive tract; Z90.89 Acquired absence of other organs; Z79.899 Other long term (current) drug therapy; Y95 Nosocomial condition
CPT/HCPCS: 31500; 36415; 36600 ×2; 51702; 71045; 80053; 82550; 82728; 82803 ×2; 83605; 83615; 83735; 83880; 84484; 85007; 85027; 85379; 85610; 85730; 86140; 87040 ×2; 87804 ×2; 93005; 99285; J0330; J2250 ×2; J3010; J3490; J7050 ×3; U0002; 36556; 36569; 74018; 74018-26; 80202; 82962; 84100; 84145; 84478; 85025; 87070; 87077; 87186; 87205; 93010; 94002; 94003; 97162-GP; 99232; 99233; 99239; A9270-GY; C9113; J0360; J0456; J0461; J0692; J0696; J1940; J2704; J2765; J2920; J2930; J3370; J7040; J7060; J7120